=== PATIENT | male | born 1955 | race Caucasian/White ===

== ENCOUNTER 2017-08-29 13:11 | Emergency (ER) | payer MEDICARE, BC, MEDICAID ==
--- OUTSIDE RECORDS SUMMARY | 2017-08-29 14:22 | XMS REPORT ---
:1955 External Reference #:[id number] Author Organization [facility] Address [address] [place] [address] Phone [phone] Care Team Providers Name Role Phone Steven Riggs M.D. Primary Care Physician Unavailable Payers Type Date Identification Numbers Payment Provider Subscriber Medicare Primary Policy Number: [id number] Medicare - [place] Octavio Sutton PayID: [id number] [place] [address] Medigap Part B Policy Number: [id number] [place] [employer] Octavio Sutton PayID: [id number] [address] [address] [place] [address] Medicaid Policy Number: [id number] Medicaid Octavio Sutton PayID: [id number] [address] [place] [address] Problems Date Description Provider Status Onset: Cerebral palsy Active Onset: Seasonal allergy Active Onset: 08/14/2016 Tear film insufficiency Eliana Ojeda O.D. Active Onset: 08/14/2016 Nuclear senile cataract Eliana Ojeda O.D. 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 Active Family History Date Family Member(s) Problem(s) Comments Father No Current Problems Mother No Current Problems Social History Type Date Description Comments Marital Status Single Occupation [employer] Work Status Disabled ETOH Use Never used alcohol Smoking Patient has never smoked Recreational Drug Use Never Used Drugs Daily Caffeine Does Not Consume Caffeine Allergies, Adverse Reactions, Alerts Date Description Reaction Status Severity Comments 08/08/2015 Sulfa Drops active 08/08/2015 Erythromycin active 08/08/2015 Codeine active 08/08/2015 Zofran active 08/08/2015 Compazine active 08/08/2015 Phenergan active Medications Medication Date Status Form Strength Qnty SIG Indications Ordering Provider Systane Nighttime 06/16 Active Ointment 3.500 every gm night Eileen Gamino Tab-A-Jocelyn 08/10 Active Tablets every day Eileen Gamino Systane Ultra 08/09 Active Solution 0.4-0.3% 10ml 4 drops 4 times a CReynaldo Pottertz, day O.DReynaldo Vigamox 08/09 Active Solution 0.5% 3ml every day . Eileen Cloud Refresh P.M. 08/09 Active Ointment 3.500 every gm night at [place]o Ojeda, bedtime O.DReynaldo both eyes Omeprazole Active Capsules DR 20mg Take 1 Unknown /0000 Capsule Twice A Day Metoprolol Active Tablets 25mg Take 1/2 Unknown Tartrate /0000 Tablet By Mouth Twice A Day Levofloxacin Active Tablets 500mg Take 1 Unknown /0000 Tablet By Mouth Every Day Claritin 00 Active Capsules 10mg every day Unknown /0000 Flomax 00 Active Capsules 0.4mg every day Unknown /0000 Florastor 00 Active Capsules 250mg every day Unknown /0000 Hydrochlorothiazi 0000 Active Tablets 25mg every day Unknown de /0000 Prevnar 13 00 Hx Suspension To Be Unknown /0000 Administer - ed By 08/18 Pharmacist For Immunizati on Results Description No Information Procedures Date CPT Code Description Status 08/14/2016 59047 Est Patient Comprehensive Exam Completed 08/10/2015 16215 Est Patient Comprehensive Exam Completed 07/16/2013 95213 Est Patient Comprehensive Exam Completed 07/17/2012 15497 Est Patient Intermediate Exam Completed 04/23/2012 72548 Est Patient Intermediate Exam Completed 06/03/2011 52361 Est Patient Intermediate Exam Completed 11/23/2010 69535 Est Patient Intermediate Exam Completed 05/01/2009 47087 Est Patient Intermediate Exam Completed 04/15/2008 33568 Est Patient Intermediate Exam Completed 11/30/2007 501 Systane PF Eye Drops 28 Count Completed 11/20/2007 31471 Est Patient Intermediate Exam Completed 01/16/2007 32435 Est Patient Intermediate Exam Completed 06/18/2005 47232 Est Patient Comprehensive Exam Completed 07/16/2004 79557 Est Patient Comprehensive Exam Completed Encounters Type Date Location Provider CPT E/M Dx Office Visit 07/18/2014 10:00a Pastor Dye MD, Lindsay Gamino, 22053 370.60 pc O.D. Office Visit 05/24/2010 9:30a Pastor Dye MD, Pastor Dye, 67301 371.00 pc M.D. Office Visit 11/21/2009 9:30a Pastor Dye MD, Fabrice Patel 59940 371.00 pc O.D. 375.15 Office Visit 12/08/2008 1:00p Pastor Dye MD, Eliana Ojeda O.D. 17883 375.15 pc Office Visit 10/14/2008 9:15a Pastor Dye MD, Pastor Dye M.D. 87641 371.00 pc Office Visit 01/06/2008 9:15a Pastor Dye MD, Pastor Dye M.D. 03821 371.00 pc Office Visit 11/30/2007 1:30p Pastor Dye MD, Pastor Dye M.D. 99627 371.00 pc Office Visit 11/27/2007 2:10p Pastor Dye MD, Lindsay Gamino, 57354 370.00 pc O.D. Plan of Care 08/19/2017 - Nathan Colon M.D.H11.053 Peripheral pterygium, progressive, bilateralComments:Smoking can increase the risk of developing or worsening any eye related disease, as well as affect your overall health. If you are a smoker , we strongly recommend that you quit.If you are not a smoker, we strongly recommend that you do not start.Follow up:1YEAR, DFE You can expect to have your eyes dilated at your next visit. If Dr. Colon orders any additional testing, it may require extra time. We recommend that you bring sunglasses, as dilation drops often make you light sensitive until they wear off. We always recommend you bring someone to drive you home if you are uncomfortable driving with your eyes dilated. If you have any questions before your next visit, feel free to call our office at .H25.13 Age-related nuclear cataract, bilateralComments:You have been diagnosed with cataracts. If you are happy with your vision as it is now, then we willsee you at your next scheduled appointment. If you feel like your vision is getting worse before your scheduled appointment, please call Anahy or Kate at [phone].
--- OUTSIDE RECORDS SUMMARY | 2017-08-29 14:22 | XMS REPORT ---
:1955 External Reference #:[id number] Author Organization [facility] Address [address] [place] [address] Phone [phone] Care Team Providers Name Role Phone Nav Buchanan M.D. Primary Care Physician Unavailable Payers Type Date Identification Numbers Payment Provider Subscriber Medicare Primary Policy Number: Medicare-[facility] Octavio Sutton [id number] [employer] PayID: [id number] [address] [facility] [place] [address] Medigap Part B Policy Number: [id number] [facility] [place] Sutton [place] Group Number: [id number] [address] [address] PayID: [id number] [place] [address] Medigap Part B Policy Number: [id number] Medicaid/C Octavio Sutton Group Name: 2 1 Medicare Primary PayID: [id number] [place] [address] Problems Date Description Provider Status Onset: 08/15/2011 Impacted cerumen Parrish Gandhi MD Active Onset: 08/15/2011 Sensorineural hearing loss Parrish Gandhi MD Active Family History Date Family Member(s) Problem(s) Comments Father Colon Cancer Social History Type Date Description Comments Occupation Retired Cigarette Use Never Smoked Cigarettes Cigars has never smoked cigars Pipe has never smoked a pipe Smokeless Tobacco has never used smokeless tobacco ETOH Use does not drink alcohol Allergies, Adverse Reactions, Alerts Date Description Reaction Status Severity Comments 11/08/2005 Erythromycin active 11/08/2005 Bactrim active 11/08/2005 Sulfa active 11/08/2005 Codeine active 11/08/2005 Zofran active 11/08/2005 Compazine active 11/08/2005 Phenergen active Medications Medication Date Status Form Strength Qnty SIG Indications Ordering Provider Multivitamin/Iron 00 Active 1 po qd [place] Steven M.Анна Vigamox Active as Unknown directed Refresh Active as [place] Steven directed M.Анна Florastor Active Capsules 250mg Use as [place] Steven directed M.Анна Chlorhexadine Active 12% use daily [place] Gluconate Oral M.Анна Rinse Prevident 5000 Active Use as [place] Steven Booster Plus directed M.Анна Tamsulosin HCL Active Capsules 0.4mg 1 by [place] Selz mouth M.DReynaldo every day Ferrous Sulfate Active Tablets 325mg 1 tab [facility] daily M.DReynaldo, Nav Metoprolol Tartrate Active Solution 5mg/5ML Cib [facility] M.DReynaldo, Nav Alprazolam Active Tablets 0.25mg as needed [facility] for M.DReynaldo, anxiety Nav Omeprazole Active Capsules 40mg one by [facility] DR vargas one Elena, per day Nav ? Abx 07/14 Hx Parrish /2007 Josselyn Olivas MD 07/05 Phenobarbital 11/07 Hx Unknown /2005 - 12/01 Bion Eye Drops 11/07 Hx - 07/05 Valium / Hx - 07/05 Flomax / Hx - 07/05 Nitrofurantoin / Hx Unknown / - 02/13 [facility] Hx Unknown gtts / - 02/13 Flomax 00 Hx 0.4mg 1 po [place] Steven daily M.DReynaldo - 10/12 Cystine / Hx Unknown - 10/12 Diazepam 00/00 Hx Unknown / - 02/13 Peridex 00/00 Hx Unknown - 02/13 Act 00/ Hx Unknown - 02/13 Hydrochlorothiazide Hx Tablets 25mg 1 po qd [place] Ryan.Анна - 02/25 Claritin 00/00 Hx Unknown /0000 - 11/04 Systane Contacts 00/00 Hx Solution as Stevne Riggs Soroxanne Drops /0000 directed Elena - 02/25 Immunizations CPT Code Status Date Vaccine Lot # [id number] Given Unknown Influenza Virus Vaccine, 3 Years Of Age And Above, Intramuscular Vital Signs Date Vital Result Comment 02/25/2017 BP Systolic 134 mmHg BP Diastolic 83 mmHg Heart Rate 88 /min Respiratory Rate 17 /min Weight 98.00 lb Weight in kg's 44.453 Height 68 inches 5'8" Height in cm's 172.7 cm BMI (Body Mass Index) 14.9 kg/m2 04/13/2015 BP Systolic 126 mmHg BP Diastolic 85 mmHg Heart Rate 110 /min Respiratory Rate 17 /min Weight 98.00 lb Weight in kg's 44.453 Height 68 inches 5'8" Height in cm's 172.7 cm BMI (Body Mass Index) 14.9 kg/m2 04/07/2014 BP Systolic 144 mmHg BP Diastolic 101 mmHg Heart Rate 125 /min Respiratory Rate 16 /min Weight 98.00 lb Weight in kg's 44.453 Height 68 inches 5'8" Height in cm's 172.7 cm BMI (Body Mass Index) 14.9 kg/m2 11/04/2013 Weight 98.00 lb Weight in kg's 44.453 Height 68 inches 5'8" Height in cm's 172.7 cm BMI (Body Mass Index) 14.9 kg/m2 04/07/2013 Weight 98.00 lb Weight in kg's 44.453 Height 68 inches 5'8" Height in cm's 172.7 cm BMI (Body Mass Index) 14.9 kg/m2 10/07/2012 BP Systolic 158 mmHg BP Diastolic 77 mmHg Heart Rate 103 /min Respiratory Rate 16 /min 04/01/2012 BP Systolic 124 mmHg BP Diastolic 74 mmHg Heart Rate 102 /min Respiratory Rate 16 /min Weight 98.00 lb Stated by caregiver Weight in kg's 44.453 Stated by caregiver 07/14/2008 BP Systolic 111 mmHg BP Diastolic 77 mmHg Heart Rate 124 /min Respiratory Rate 18 /min 12/04/2007 BP Systolic 142 mmHg BP Diastolic 95 mmHg Heart Rate 106 /min Respiratory Rate 17 /min 05/20/2007 BP Systolic 154 mmHg BP Diastolic 98 mmHg Heart Rate 100 /min Respiratory Rate 20 /min 11/08/2005 BP Systolic 150 mmHg BP Diastolic 99 mmHg Heart Rate 97 /min Respiratory Rate 16 /min Results Description No Information Procedures Date CPT Code Description Status 08/21/2017 79254 Removal Wax Impaction Completed 02/25/2017 32283 Removal Wax Impaction Completed 08/29/2016 83198 Tympanometry Completed 08/29/2016 00435 Speech Audiometry Threshold Completed 08/29/2016 77738 Pure Tone - Air Conduction Only Completed 05/15/2016 49402 Removal Wax Impaction Completed 04/13/2015 65411 Removal Wax Impaction Completed 10/13/2014 68320 Removal Wax Impaction Completed 04/07/2014 71852 Speech Audiometry Threshold Completed 04/07/2014 92940 Pure Tone - Air Conduction Only Completed 11/04/2013 49035 Removal Wax Impaction Completed 04/07/2013 88820 Removal Wax Impaction Completed 10/07/2012 97627 Removal Wax Impaction Completed 04/01/2012 93421 Tympanometry Completed 04/01/2012 02465 Comprehensive Audiogram Completed 08/14/2011 79718 Removal Wax Impaction Completed 02/13/2011 31688 Removal Wax Impaction Completed 08/01/2010 84217 Removal Wax Impaction Completed 01/25/2010 44706 Tympanometry Completed 01/25/2010 14829 Speech Audiometry Threshold Completed 01/25/2010 64543 Pure Tone - Air Conduction Only Completed 01/03/2010 05643 No Show Fee Completed 07/05/2009 79658 Removal Wax Impaction Completed 03/01/2009 00260 Interest Income Completed 01/19/2009 69420 Removal Wax Impaction Completed 07/14/2008 28271 Removal Wax Impaction Completed 12/04/2007 62323 Removal Wax Impaction Completed 05/20/2007 72675 Removal Wax Impaction Completed 10/01/2006 38603 Removal Wax Impaction Completed 05/09/2006 41577 Tympanometry Completed 05/09/2006 28014 Comprehensive Audiogram Completed 04/02/2006 25466 Tympanometry Completed 04/02/2006 68575 Pure Tone - Air Conduction Only Completed Encounters Type Date Location Provider CPT E/M Dx Office Visit 08/29/2016 10:30a [place] 09/01/07 Parrish Gandhi, [address] H61.23 H90.3 Office Visit 04/07/2014 10:00a [place],After 09/01/07 [place] [address] 380.4 389.10 Office Visit 04/01/2012 10:30a [place],After 09/01/07 [place] [address] 380.4 389.10 Office Visit 01/25/2010 2:30p [place],After 09/01/07 [place] [address] 380.4 389.10 Office Visit 01/19/2009 11:30a [place],After 09/01/07 [place] [address] 380.4 462-2 Office Visit 03/28/2006 10:15a [place],After 09/01/07 [place] [address] 380.4 Office Visit 12/25/2005 10:15a [place],After 09/01/07 [place] [address] 380.4 Office Visit 11/08/2005 3:30p [place],After 09/01/07 [place] [address] 380.4 Plan of Care No Information Available
--- OUTSIDE RECORDS SUMMARY | 2017-08-29 14:22 | XMS REPORT ---
:1955 External Reference #:[id number] Author Organization [facility] Address [address] [place] [id number] Phone [phone] Care Team Providers Name Role Phone Nav Buchanan MD Care Team Information Company Driver Unavailable Payers Type Date Identification Numbers Payment Provider Subscriber Medicare Primary Effective: Policy Number: Medicare - Bswbogdan Arreguin 1985 [id number] PayID: [id number] [address] [place] [address] Medigap Part B Effective: Policy Number: Leta ROZINA Charlotte Arreguin 2014 [id number] Expires: 2017 Group Name[place] [address] PayID: [id number] TRA Forman [id number] Medigap Part B Effective: Policy Number: Medicaid/Computer Octavio 2009 [id number] Antony Arreguin Expires: 2017 Group Name: 1 1 [address] PayID: [id number] [place] [address] Medigap Part B Effective: Policy Number: Leta SHELLEYELIZA Cunningham 2017 [id number] Herman Group Name: [place] [address] PayID: [id number] TRA [place] [id number] Problems Date Description Provider Status Onset: Urinary catheter in situ Active Onset: Atrial fibrillation Active Onset: Ventricular tachycardia Active Onset: Platelet count below reference range Active Onset: Syncope Active Onset: Sepsis Active Onset: Disuse syndrome Active Onset: Pericardial effusion Active Onset: Loss of consciousness Active Onset: Left lower zone pneumonia Active Onset: Intestinal obstruction Active Onset: Blood in urine Active Onset: Hypertensive disorder Active Onset: For resuscitation Active Onset: Endocarditis Active Onset: High troponin I level Active Onset: Bacteremia caused by Gram-negative bacteria Active Onset: H/O: anticoagulant therapy Active Onset: Cerebral palsy Active Onset: Benign prostatic hyperplasia Active Onset: Anemia Active Onset: Injury of kidney Active Family History Date Family Member(s) Problem(s) Comments General Cancer, Colon Father Cancer, Colon Social History Type Date Description Comments Marital Status Single Lives With Caregiver [facility] patient. His mid 90's mother retains guardianship, Rocky is looking into trying to change this. Diet Healthy, Well Balanced Occupation Disabled Cigarette Use Never Smoked Cigarettes ETOH Use Denies alcohol use Recreational Drug Use Denies Drug Use Exercise Type/Frequency Does not exercise Allergies, Adverse Reactions, Alerts Date Description Reaction Status Severity Comments 02/15/2016 Erythromycin active 02/15/2016 Codeine active 02/15/2016 Sulfa Antibiotics active 02/15/2016 Compazine active 02/15/2016 Phenergan active 02/15/2016 Zofran active Medications Medication Date Status Form Strength Qnty SIG Indications Ordering Provider New Shoes 05/28 Active as needed G80.8 DXdoretha martinez MD Cefuroxime Axetil 05/27 Active Tablets 500mg 20tab one by J20.9 s mouth twice P. a day x 10 Blegen, days for M.D. Bronchitis/ Pneumonia Robitussin 05/27 Active Liquid 100mg/5ML 118ml 5mL twice a J20.9 Nav Mucus+Chest /2016 day for [place] Congestion cough x 5 , MD days Shoe Repair 05/26 Active as needed G80.8 dx code Dewayne white MD Centrum Tab 130Ea 05/26 Active 30uni Take 1 ts Tablet By Dewayne Mouth Once , Daily (Supplement ) Klonopin 02/12 Active Tablets 0.5mg 30tab Take One F41.9 s Tablet By Heetdivya Mouth At , MD Bedtime MDD 1 MDD 1 MDD 1 Florastor 250MG 01/07 Active Caps 120ca Take 2 ps Capsules By [place] Mouth Two , MD Times A Day (Prophy) Benadryl Allergy 11/11 Active Capsules 25mg 30cap 1 capsule F51.02 s take by [place] mouth q6 as , MD needed. Hold scheduled evening dose if given within 6 hours. Refresh 09/13 Active MD Dewayne Hospital Bed 08/30 Active adjustable G80.9 bed for Dewayne sleep. MD severe physical disabilitie s. Zeasorb-AF 07/15 Active Powder 2% 71uni Apply To ts Interspace Dewayne (Toes) MD Every Day (Tinea Pedis) Sudafed 07/05 Active Tablets 30mg 90tab 1 tab by s mouth three Dewayne times a day , MD as needed Bacitracin Zinc 07/05 Active Ointment 500Unit/G 14.17 apply to M 0gm rash on [place] face twice , MD a day as needed Resource 2.0 05/28 Active Liquid QS 8 oz twice R63.4 a day MD Dewayne Hydrocortisone 04/21 Active Cream 1% 28.35 twice daily 0gm MD Dewayne Ferrous Sulfate 12/20 Active Tablets 325(65Fe) 30tab every day mg s MD Dewayne Multivitamin & Active Tablet 30tab take 1 Nav Mineral s tablet by Heetderemmanuel mouth once , MD daily. Florastor Active Capsules 250mg 120ca take two Nav ps capsules by Heetderemmanuel mouth twice , MD a day [place] Active Liquid 60uni 2 times a Nav Breakfast /0000 day Dewayne Hill MD Acetaminophen Active Tablets 325mg 120ta 2 tabs by Nav / bs mouth every [place] 6 hours as , MD needed for pain or fever. Pepto-Bismol Active Chewtabs 262mg 30uni take two Nav /0000 ts tab by Heetdivya mouth every , 4 as needed Claritin Active Tablets 10mg 30tab 1 by mouth Nav /0000 s every day [place] as needed , MD Fielditussin DM Active Syrup 100-10mg/ 118ml 10 Nav /0000 5ML milliliters [place] by mouth , MD every 6 hours as needed Lotrimin AF Active Cream 1% 12gm apply to Nav /0000 digits once [place] daily twice , MD a week for 3 months Vigamox Active Solution 0.5% 3ml instill 1 Nav /0000 drop into [place] both eyes , every day Systane Ultra Active Solution 0.4-0.3% 20uni instill 1 Nav /0000 ts drop both [place] eyes four , MD times a day(1 bottle for program) (moisture) Metoprolol Active Tablets 25mg 30tab take 1/2 Nav Tartrate /0000 s tablet by [place] mouth 2 , times a day. Tamsulosin HCL Active Capsules 0.4mg 30cap 1 by mouth Nav /0000 s every day MD Dewayne Omeprazole Active Capsules 40mg 30cap take one Nav /0000 DR s capsule by [place] mouth every , MD day. Amoxicillin Active Capsules 500mg 14cap 4 pills one Nav /0000 s hr. prior [place] to dental MD appt. Discontinue Xanax 02/17 Hx Nav Dewayne - MD 05/27 Klonopin 02/12 Hx Tablets 0.5mg 30tab Take One Nav s Tablet By Dewayne - Mouth At MD 05/27 Bedtime MDD 1 Xanax 01/08 Hx Tablets 0.25mg 30tab 1 tab by F41.9 Nav s mouth daily Dewayne - as needed MD 02/12 for sleep MDD 1 Benadryl Allergy 11/11 Hx Capsules 25mg 30cap 1 tab by F51.02 s mouth every [place] - night. MD [place] 05/27 taking the morning dose of benadryl. Benadryl 09/13 Hx Capsules 25mg 30cap 1 tab by F51.02 s mouth every [place] - night. MD [place] 11/11 taking morning dose of benadryl. Benadryl 09/13 Hx Capsules 25mg 30cap 1 capsule F51.02 s take by [place] - mouth q6 as , 11/11 needed. Hold scheduled evening dose if given within 6 hours. Discontinue Boost 05/28 Hx Dewayne Arcos MD 06/24 Nystatin 05/13 Hx Cream [id number] 60gm apply twice t/GM a day to [place] - rash in , 06/24 creases for 2 weeks Augmentin 05/05 Hx Tablets 500-125mg 42tab Twice Daily s - 06/24 Benadryl Allergy 04/21 Hx Tablets 25mg 30tab see s instruction [place] - s as needed , 05/27 for itching Benadryl Allergy 04/21 Hx Tablets 25mg 0900 - 06/24 Vicodin 04/21 Hx Tablets 5-300mg Discontinue medication Dewayne Arcos MD 09/13 [place] PM 04/03 Hx Ointment 85-15% 3.5un apply (09/02 its in) both [place] - eyes every MD 09/13 (moisture) Prilosec Hx Capsules 20mg 30cap every day DR cydney Arcos MD 09/13 Benadryl Hx Capsules 25mg Take one Unknown /0000 capsule by - mouth every 06/24 morning. Hydrochlorothiazid Hx Tablets 25mg Take one Unknown e /0000 tablet by - mouth every 05/13 day. Boost 00 Hx Unknown /0000 - 05/28 Benadryl Hx Capsules 25mg Take one Unknown /0000 capsule by - mouth as 06/24 needed the afternoon. Zeasorb Hx Powder 71gm apply to Nav /0000 interspace [place] - toes MD kevin Bacitracin Hx Solution 5000U/ GM 1unit apply to Nav /0000 Rec s small cuts, [place] - wounds MD patrica 07/05 Immunizations CPT Code Status Date Vaccine Lot # [id number] Given 06/26/2017 Zoster Vaccine [id number] Given 06/01/2017 Influenza Virus Vaccine, Quadrivalent, 3 Yr > Quad, Preserv Free [id number] Given 06/27/2016 Influenza Virus Vaccine, Quadrivalent, 3 Yr > Quad, Preserv Free [id number] Given 11/20/2009 Tdap (Adacel) Vital Signs Date Vital Result Comment 08/26/2017 BP Systolic 120 mmHg BP Diastolic 60 mmHg Heart Rate 64 /min Body Temperature 99.1 F Respiratory Rate 16 /min O2 % BldC Oximetry 95 % 06/26/2017 BP Systolic 90 mmHg BP Diastolic 64 mmHg Heart Rate 64 /min Body Temperature 95.8 F Respiratory Rate 20 /min O2 % BldC Oximetry 99 % 05/27/2017 BP Systolic 110 mmHg BP Diastolic 80 mmHg Heart Rate 100 /min Body Temperature 99.6 F Respiratory Rate 20 /min O2 % BldC Oximetry 94 % 01/23/2017 BP Systolic 100 mmHg BP Diastolic 66 mmHg Heart Rate 96 /min Body Temperature 97.8 F Respiratory Rate 16 /min O2 % BldC Oximetry 96 % 01/08/2017 BP Systolic 120 mmHg BP Diastolic 78 mmHg Heart Rate 72 /min Body Temperature 97.0 F Respiratory Rate 24 /min 12/20/2016 BP Systolic 90 mmHg BP Diastolic 60 mmHg Heart Rate 88 /min Body Temperature 97.6 F Respiratory Rate 20 /min O2 % BldC Oximetry 96 % 09/30/2016 BP Systolic 112 mmHg BP Diastolic 84 mmHg Heart Rate 108 /min Body Temperature 99.2 F O2 % BldC Oximetry 95 % 09/13/2016 Weight 91.00 lb Per aide Weight in kg's 41.278 BP Systolic 88 mmHg BP Diastolic 66 mmHg Heart Rate 69 /min Body Temperature 97.3 F Respiratory Rate 12 /min O2 % BldC Oximetry 96 % 06/24/2016 BP Systolic 96 mmHg BP Diastolic 60 mmHg Heart Rate 97 /min Body Temperature 96.4 F Respiratory Rate 18 /min O2 % BldC Oximetry 97 % 05/13/2016 BP Systolic 105 mmHg BP Diastolic 70 mmHg Heart Rate 80 /min Body Temperature 98.1 F O2 % BldC Oximetry 94 % 05/05/2016 BP Systolic 120 mmHg BP Diastolic 68 mmHg Heart Rate 102 /min Body Temperature 97.9 F Respiratory Rate 16 /min O2 % BldC Oximetry 99 % 04/26/2016 Weight 93.00 lb Weight in kg's 42.184 Height 68 inches BMI (Body Mass Index) 14.1 kg/m2 03/21/2016 BP Systolic 110 mmHg BP Diastolic 60 mmHg Heart Rate 91 /min Body Temperature 97.6 F Respiratory Rate 13 /min O2 % BldC Oximetry 98 % 02/12/2016 Weight 90.00 lb Weight in kg's 40.824 BP Systolic 122 mmHg BP Diastolic 87 mmHg Heart Rate 88 /min Body Temperature 95.9 F O2 % BldC Oximetry 98 % Results Test Date Test Result H/L Range Note Lipid Profile (Trig/Chol/HDL) 06/26/2017 Triglycerides 92 mg/dL 1 Cholesterol 110 mg/dL 2 HDL Cholesterol 42.1 mg/dL 3 LDL Cholesterol 50 mg/dL 4 HIV 1/2 AB Evaluation 06/26/2017 HIV 1 2 Antibody Nonreactive Nonreactive 5 Laboratory test finding 06/26/2017 Hepatitis C Antibody Nonreactive Nonreactive 6 CBC Auto Diff 06/26/2017 White Blood Count 5.4 10^3/uL 3.5-10.8 Red Blood Count 4.12 10^6/uL 4.0-5.4 Hemoglobin 12.9 g/dL Low 14.0-18.0 Hematocrit 39 % Low 42-52 Mean Corpuscular Volume 95 fL High 80-94 Mean Corpuscular Hemoglobin 31 pg 27-31 Mean Corpuscular HGB Conc 33 g/dL 31-36 Red Cell Distribution Width 15 % 10.5-15 Platelet Count 100 10^3/uL Low 150-450 Mean Platelet Volume 13 um3 High 7.4-10.4 Abs Neutrophils 3.9 10^3/uL 1.5-7.7 Abs Lymphocytes 0.7 10^3/uL Low 1.0-4.8 Abs Monocytes 0.7 10^3/uL 0-0.8 Abs Eosinophils 0 10^3/uL 0-0.6 Abs Basophils 0 10^3/uL 0-0.2 Abs Nucleated RBC 0 10^3/uL Granulocyte % 72.3 % 38-83 Lymphocyte % 12.4 % Low 25-47 Monocyte % 13.7 % High 1-9 Eosinophil % 0.9 % 0-6 Basophil % 0.7 % 0-2 Nucleated Red Blood Cells % 0 Basic Metabolic Panel 06/26/2017 Sodium 134 mmol/L 133-145 Potassium 4.5 mmol/L 3.5-5.0 Chloride 100 mmol/L Low 101-111 Co2 Carbon Dioxide 28 mmol/L 22-32 Anion Gap 6 mmol/L 2-11 Glucose 99 mg/dL 70-100 Blood Urea Nitrogen 28 mg/dL High 6-24 Creatinine 1.13 mg/dL 0.67-1.17 BUN/Creatinine Ratio 24.8 High 8-20 Calcium 9.2 mg/dL 8.6-10.3 Egfr Non- 66.2 >60 Egfr 85.1 >60 7 Cell Morphology 06/26/2017 Platelet Morphology Large RBC Morphology Normal Normal Flu Test A, B, Or A & B,Binaxn 05/27/2017 Influenza A Antigen NEG Influenza B Antigen NEG Laboratory test finding 05/14/2017 Blood Urea Nitrogen BUN 23 mg/dL 6-24 Creatinine 05/14/2017 Creatinine 1.25 mg/dL High 0.67-1.17 Egfr Non- 58.9 >60 Egfr 75.8 >60 8 Laboratory Studies 05/03/2016 Anion Gap 2 mmol/L 2-11 BUN/Creatinine Ratio 16.7 8-20 Blood Urea Nitrogen 18 mg/dL 6-24 Calcium Level 8.3 mg/dL Low 8.6-10.3 Carbon Dioxide Level 27 mmol/L 22-32 Chloride Level 106 mmol/L 101-111 Creatinine 1.08 mg/dL 0.67-1.17 Estimated GFR () 90.0 Estimated GFR (Non- 70.0 Glucose Level 86 mg/dL 70-100 Potassium Level 4.8 mmol/L 3.5-5.0 Sodium Level 135 mmol/L 133-145 Inr/Protime 04/21/2016 Inr 1.46 High 0.89-1.11 Laboratory test 04/21/2016 Partial Thrombo Time 28.1 seconds 26.0-36.3 finding PTT Manual Differential 04/21/2016 Immature Granulocytes 22 % High 0-9 Neutrophil % 69 % 38-83 Band % 20 % High 0-8 Monocytes % 9 % 0-13 Metamyelocytes % 2 % 0-2 Hypochromasia 1+ Ruma Cells 2+ Acanthocytes 1+ CBC Auto Diff 04/21/2016 White Blood Count 11.4 10^3/uL High 3.5-10.8 Red Blood Count 4.18 10^6/uL 4.0-5.4 Hemoglobin 12.4 g/dL Low 14.0-18.0 Hematocrit 38 % Low 42-52 Mean Corpuscular Volume 91 fL 80-94 Mean Corpuscular Hemoglobin 30 pg 27-31 Mean Corpuscular HGB Conc 33 g/dL 31-36 Red Cell Distribution Width 16 % High 10.5-15 Platelet Count 112 10^3/uL Low 150-450 Mean Platelet Volume 13 um3 High 7.4-10.4 Abs Neutrophils 9.7 10^3/uL High 1.5-7.7 Abs Lymphocytes 0.4 10^3/uL Low 1.0-4.8 Abs Monocytes 1.2 10^3/uL High 0-0.8 Abs Eosinophils 0 10^3/uL 0-0.6 Abs Basophils 0.1 10^3/uL 0-0.2 Abs Nucleated RBC 0 10^3/uL Granulocyte % 85.6 % High 38-83 Lymphocyte % 3.3 % Low 25-47 Monocyte % 10.7 % High 1-9 Eosinophil % 0 % 0-6 Basophil % 0.4 % 0-2 Nucleated Red Blood Cells % 0 Laboratory test finding 04/21/2016 Lactic Acid 2.9 mmol/L High 0.5-2.0 9 Comp Metabolic Panel 04/21/2016 Sodium 132 mmol/L Low 133-145 Potassium 4.9 mmol/L 3.5-5.0 Chloride 100 mmol/L Low 101-111 Co2 Carbon Dioxide 22 mmol/L 22-32 Anion Gap 10 mmol/L 2-11 Glucose 92 mg/dL 70-100 Blood Urea Nitrogen 52 mg/dL High 6-24 Creatinine 2.64 mg/dL High 0.67-1.17 BUN/Creatinine Ratio 19.7 8-20 Calcium 9.6 mg/dL 8.6-10.3 Total Protein 7.6 g/dL 6.4-8.9 Albumin 3.6 g/dL 3.2-5.2 Globulin 4.0 g/dL 2-4 Albumin/Globulin Ratio 0.9 Low 1-3 Total Bilirubin 0.80 mg/dL 0.2-1.0 Alkaline Phosphatase 84 U/L 34-104 Alt 17 U/L 7-52 Ast 44 U/L High 13-39 Egfr Non- 24.9 >60 Egfr 32.1 >60 10 Laboratory test 04/21/2016 Troponin-I (TnI) 0.03 ng/mL High <0.03 11 finding Laboratory test 04/21/2016 Blood Culture SEE RESULT BELOW 12 finding Urine Culture SEE RESULT BELOW 13 Urinalysis Profile 04/21/2016 Urine Color Flor Urine Appearance Cloudy Urine Specific [place] 1.012 1.010-1.030 Urine pH 5.0 5-9 Urine Urobilinogen Negative Negative Urine Ketones Negative Negative Urine Protein 1+(30 mg/dL) Negative Urine Leukocytes 3+ Negative Urine Blood 3+ Negative Urine Nitrite Negative Negative Urine Bilirubin Negative Negative Urine Glucose Negative Negative Urine White Blood Cell 3+(>20/hpf) Absent Urine Red Blood Cell 3+(>10/hpf) Absent Urine Bacteria 2+ Absent Urine Squamous Epithelial Cell Present Absent Laboratory test finding 03/05/2016 C Difficile PCR SEE RESULT BELOW 14 1 Desirable: <150 Borderline High: 150-199 High: 200-499 Very High: >500 2 Desirable: <200 Borderline High: 200-239 High: >239 3 Low: <40 Desirable: 40-60 High: >60 4 Desirable: <100 Near Optimal: 100-129 Borderline High: 130-159 High: 160-189 Very High: >189 5 It is recognized that currently available assays for the detection of antibodies to HIV-1 and/or HIV-2 may not detect all infected individuals. HIV antibodies may be undetectable in some stages of the infection and in some clinical conditions. The performance of this assay has not been established for populations of infants or children. Assayed by Chemiluminescence Microparticle Immunoassay on the Siemens Advia Centaur CP. Values obtained with different methods or kits cannot be used interchangeably.The diagnostic specificity of the ADVIA Centaur 1/O/2 Enhanced assay in the low risk population was 99.90% (6052/6058) with a 95% confidence interval of 99.78 to 99.96%. 6 [id number] FASTING 7 Because ethnic data is not always readily available, this report includes an eGFR for both -Americans and non- Americans. The National Kidney Disease Education Program (NKDEP) does not endorse the use of the MDRD equation for patients that are not between the ages of 18 and 70, are , have extremes of body size, muscle mass, or nutritional status, or are non- or non-. According to the National Kidney Foundation, irrespective of diagnosis, the stage of the disease is based on the level of kidney function: Stage Description GFR(mL/min/1.73 m(2)) 1 Kidney damage with normal or decreased GFR 90 2 Kidney damage with mild decrease in GFR 60-89 3 Moderate decrease in GFR 30-59 4 Severe decrease in GFR 15-29 5 Kidney failure <15 (or dialysis) 8 Because ethnic data is not always readily available, this report includes an eGFR for both -Americans and non- Americans. The National Kidney Disease Education Program (NKDEP) does not endorse the use of the MDRD equation for patients that are not between the ages of 18 and 70, are , have extremes of body size, muscle mass, or nutritional status, or are non- or non-. According to the National Kidney Foundation, irrespective of diagnosis, the stage of the disease is based on the level of kidney function: Stage Description GFR(mL/min/1.73 m(2)) 1 Kidney damage with normal or decreased GFR 90 2 Kidney damage with mild decrease in GFR 60-89 3 Moderate decrease in GFR 30-59 4 Severe decrease in GFR 15-29 5 Kidney failure <15 (or dialysis) 9 Critical Result LACT:2.9 Called to AURELIA at: 14:29:19 by:[id number] Read back by:AURELIA SAHU Severe Sepsis and Septic Shock Management Bundle Measure requires all lactic acids initially measuring >2.0 mmol/L be repeated. 10 Because ethnic data is not always readily available, this report includes an eGFR for both -Americans and non- Americans. The National Kidney Disease Education Program (NKDEP) does not endorse the use of the MDRD equation for patients that are not between the ages of 18 and 70, are , have extremes of body size, muscle mass, or nutritional status, or are non- or non-. According to the National Kidney Foundation, irrespective of diagnosis, the stage of the disease is based on the level of kidney function: Stage Description GFR(mL/min/1.73 m(2)) 1 Kidney damage with normal or decreased GFR 90 2 Kidney damage with mild decrease in GFR 60-89 3 Moderate decrease in GFR 30-59 4 Severe decrease in GFR 15-29 5 Kidney failure <15 (or dialysis) 11 Reference Range and Interpretation: TnI (ng/mL) Interpretation Less Than 0.03 ng/mL Not supportive of diagnosis of AR 0.03 - 0.50 ng/mL Indeterminate: suggest serial studies if clinically indicated. Greater than 0.5 ng/mL Consistent with diagnosis of AR 12 SEE RESULT BELOW Name: OCTAVIO ARREGUIN : [address]: Angel Kay MD Acct: [id number] Unit: [id number] AGE: 61 Location: [address] Re04/21/16 SEX: M Status: ADM IN SPEC: [id number] BETTY: 04/21/16-143[facility] DR: Georges Pereira DO REQ: [id number] RECD: 04/21/16 STATUS: LUIS MIGUEL LAGOS DR: Nav Buchanan MD _ SOURCE: BLOOD,VENO SPDESC: ORDERED: Blood Cult COMMENTS: Verbal to by [id number] at 1505 on 04/22/16. Results read back accurately. Procedure Result Reported Site Aerobic Culture Bottle Final 04/23/16- 0837 ML Aerobic Bottle Gram Stain Gram Negative Bacilli Organism 1 KLEBSIELLA PNEUMONIAE Please refer to [id number] culture ANAEROBIC bottle for sensitivity testing. Anaerobic Culture Bottle Final 04/26/16- 1448 ML No Growth Day 5 * ML - MAIN LAB ([facility]) . END OF REPORT * ML=Testing performed at Main Lab DEPARTMENT OF PATHOLOGY, [address] [place] [address] Christian Olivares M.D. Director [facility] # [id number] 13 SEE RESULT BELOW Name: OCTAVIO ARREGUIN : [address]: Agustina Trujillo MD Acct: [id number] Unit: [id number] AGE: 61 Location: [place] [address] Re04/21/16 SEX: M Status: ADM IN SPEC: [id number] BETTY: 04/21/[address]: Georges Pereira DO REQ: [id number] RECD: 04/21/16 STATUS: LUIS MIGUEL LAGOS DR: Nav Buchanan MD _ SOURCE: URINE SPDESC: ORDERED: Urine Culture Procedure Result Reported Site Urine Culture Final 04/23/16- 08 ML Organism 1 KLEBSIELLA PNEUMONIAE Hugo Count >100,000 (Many) CFU/ML 1. KLEBSIELLA PNEUMONIAE M.I.C. RX --------- ------ Ampicillin >=32 R Cefazolin <=4 S Cefepime <=1 S Ceftriaxone <=1 S Ciprofloxacin <=0.25 S Gentamicin <=1 S Levofloxacin <=0.12 S Meropenem <=0.25 S Nitrofurantoin 128 R Tetracycline <=1 S Pipercillin/Tazobactam <=4 S Trimethoprim/Sulfamethoxazole <=20 S Amoxicillin/Clavulanic Acid <=2 S Aztreonam <=1 S Contact the Microbiology Department for any additional antibiotic reporting. * ML - MAIN LAB ([facility]) . END OF REPORT * ML=Testing performed at Main Lab DEPARTMENT OF PATHOLOGY, [address] [place] [address] Christian Olivares M.D. Director [facility] # [id number] 14 SEE RESULT BELOW Name: OCTAVIO ARREGUIN : [address]: Vinny Perry MD Acct: [id number] Unit: [id number] AGE: 61 Location: [facility] Re03/05/16 SEX: M Status: REG REF SPEC: [id number] BETTY: 03/05/16 [facility] DR: Vinny Perry MD REQ: [id number] RECD: 03/06/16 STATUS: LUIS MIGUEL LAGOS DR: Nav Buchanan MD _ SOURCE: STOOL SPDESC: ORDERED: C. diff PCR COMMENTS: attempted Verbal by [employer] at 1503 on 03/06/16. . Verbal to abdoulaye (nurse) by [employer] at 1510 on 03/06/16. Results read back accurately. Procedure Result Reported Site Stool Specimen Description Final 03/07/16- 1447 ML Stool Color Brown Stool Form Nonformed Stool Consistency Liquid C. difficile PCR Final 03/06/16- 1504 ML Organism 1 027 Presumptive NEGATIVE Organism 2 Toxigenic C.diff POSITIVE * ML - MAIN LAB ([facility]) . END OF REPORT * ML=Testing performed at Main Lab DEPARTMENT OF PATHOLOGY, [address] [place] [address] Christian Olivares M.D. Director [facility] # [id number] Procedures Description No Information Encounters Type Date Location Provider CPT E/M Dx Office Visit 06/26/2017 1:00p Main Office Nav Buchanan MD G0439 Z00.8 N40.1 R13.11 Z23 Office Visit 05/27/2017 4:00p Main Office Dorota Campuzano M.D. 31234 J20.9 G80.8 Office Visit 01/23/2017 11:15a [place] [address] B35.1 Office Visit 01/08/2017 9:30a [place] [address] F41.9 Office Visit 12/20/2016 10:45a [place] [address] R05 Office Visit 09/30/2016 4:45p [place] [address] R05 Office Visit 09/13/2016 10:15a [place] [address] G80.8 F51.02 Office Visit 06/24/2016 1:00p Main Office Nav Buchanan MD G0438 Z00.8 R63.6 Office Visit 05/13/2016 10:00a [place] [address] R65.20 N39.0 B37.2 Office Visit 03/21/2016 10:00a [place] [address] A04.7 Office Visit 02/12/2016 9:00a [place] [address] G80.9 F79 D48.7 A04.7 N31.8 I38 Plan of Care 08/26/2017 - Jese Tello III, TRANSPORT ENGINEER-CR05 CoughComments:Cough likely due to mild post-nasal drip. Remainder of exam is at baseline - no edema, no SOB. Weight discrepancy likely due to user error. Continue to monitor and f/u with concerns.
[2017-08-29] MEDS ORDERED: Albuterol/Ipratropium NEB.SOL* Albuterol 2.5 MG/Ipratropium 0.5 MG 3 ML INH ONE (14:57)
--- NOTE | 2017-08-29 16:11 | RAD ---
INDICATION: Shortness of breath. COMPARISON: Correlation is made with a prior study from December 20, 2016. TECHNIQUE: AP and lateral views of the chest were obtained. FINDINGS: The cardiac silhouette is markedly enlarged and unchanged. There is mild prominence of the interstitial markings which are unchanged. There is a small infiltrate at the right lung base. No pleural effusion is seen. IMPRESSION: 1. ENLARGED CARDIAC SILHOUETTE, UNCHANGED. 2. SMALL RIGHT BASILAR INFILTRATE.
[2017-08-29] MEDS ORDERED: Ciprofloxacin 400MG IVPREMIX(* 400 MG/200 ML BAG IVPB ONE (16:32)
[2017-08-29 16:36] LABS: Hematocrit 43 % (42-52); Hemoglobin 14.3 g/dl (14.0-18.0); Mean Corpuscular HGB Conc 33 g/dl (31-36); Mean Corpuscular Hemoglobin 32 pg (27-31); Mean Corpuscular Volume 95 fL (80-94); Mean Platelet Volume 12 um3 (7.4-10.4); Platelet Count 82 10^3/ul (150-450); Red Blood Count 4.49 10^6/ul (4.0-5.4); Red Cell Distribution Width 16 % (10.5-15); White Blood Count 10.9 10^3/ul (3.5-10.8)
[2017-08-29 16:51] LABS: EGFR Non-African American 60.6 (>60)
[2017-08-29] MEDS ORDERED: NS 0.9% 1000 ML* 1,000 ML IV ONE (16:58)
[2017-08-29] MEDS ORDERED: methylPREDNISolone 125 MG* 2 ML VIAL IV ONE (16:59)
[2017-08-29] MEDS ORDERED: Cefepime 2 GM in Dextrose(*) 2 GM/50 ML BAG IV ONE (17:00)
[2017-08-29] MEDS ORDERED: Acetaminophen TAB* 325 MG PO ONE (19:25)
[2017-08-29 19:37] VITALS: BP 146/71
--- NOTE | 2017-09-09 11:43 | ED ---
Larissa Koroma Gabriel, scribed for Marcial Vazquez MD on 08/29/17 at 1930 . Course/Dx - Diagnoses Provider Diagnoses: Pneumonia, Dehydration - Provider Notifications Discussed Care Of Patient With: Lynn Orona Time Discussed With Above Provider: 19:28 Instructed by Provider To: Other - Discussed patient admission with Dr. Orona and she recommended due to the low curb 65 score that the pt be discharged back too his residential care facility. The documentation as recorded by the Larissa nye Gabriel accurately reflects the service I personally performed and the decisions made by Taylor vaughn Jerry, MD.
--- NOTE | 2017-09-09 11:43 | ED ---
Tino Koroma Angela, scribed for Marcial Vazquez MD on 08/29/17 at 1446 . Shortness of Breath - HPI Summary HPI Summary: This pt is a 62 y/o male, accompanied by facility customer care manager, presenting to [facility] via facility transport from group house for cough and cold-like symptoms. laboratory animal caretaker is unable to give any more history as she is not his customer care manager, had to relief the pt's customer care manager. Pt goes to the wound clinic. PCP: Dr. Medellin PMHx includes cerebral palsy, HTN, high cholesterol, hydronephrosis with stent, endocarditis, C. diff, pressure ulcer. HPI IS LIMITED DUE TO LEVEL 5 CAVEAT - Pt has cerebral palsy, nonverbal. - History of Current Complaint Chief Complaint: EDGeneral Time Seen by Provider: 08/29/17 14:44 Hx Obtained From: Patient Hx From Patient Unobtainable Due To: Other - level 5 caveat Onset/Duration: Still Present Timing: Constant Dyspnea At: Rest Associated Signs & Symptoms: Cough (Productive) - Allergy/Home Medications Allergies/Adverse Reactions: Allergies Allergy/AdvReac Type Severity Reaction Status Date / Time Codeine Allergy Unknown Unknown Verified 08/29/17 13:15 Reaction Details Erythromycin Allergy Unknown Unknown Verified 08/29/17 13:15 Reaction Details Ondansetron [From Zofran] Allergy Unknown Unknown Verified 08/29/17 13:15 Reaction Details Prochlorperazine Allergy Unknown Unknown Verified 08/29/17 13:15 [From Compazine] Reaction Details Promethazine [From Phenergan] Allergy Unknown Unknown Verified 08/29/17 13:15 Reaction Details Sulfa Drugs Allergy Unknown Unknown Verified 08/29/17 13:15 Reaction Details PMH/Surg Hx/FS Hx/Imm Hx Endocrine/Hematology History: Reports: Hx Anemia - THROMBOCYTOPENIA Denies: Hx Diabetes Cardiovascular History: Reports: Hx Hypercholesterolemia, Hx Hypertension Denies: Hx Congestive Heart Failure, Hx Pacemaker/ICD, Other Cardiovascular Problems/Disorders Respiratory History: Denies: Other Respiratory Problems/Disorders GI History: Reports: Hx Ulcer Denies: Other GI Disorders History: Reports: Hx Benign Prostatic Hyperplasia Denies: Hx Dialysis, Hx Renal Disease Musculoskeletal History: Reports: Other Musculoskeletal History - USES WALKER AND ASSIST, BRACE LEFT LEG Denies: Hx Rheumatoid Arthritis Sensory History: Reports: Hx Contacts or Glasses Denies: Hx Hearing Aid Opthamlomology History: Reports: Hx Contacts or Glasses Neurological History: Reports: Hx Developmental Delay, Hx Nerve Disease - CEREBRAL PALSY, Other Neuro Impairments/Disorders - NON VERBAL, CP Psychiatric History: Reports: Hx Anxiety - NO MEDS Denies: Hx Panic Disorder - Surgical History Surgery Procedure, Year, and Place: tumor removed right femur 1991. eye surgery 1974. toe surgery right foot. compound fracture left arm. PT NOT A GOOD HISTORIAN, CLEARED BY DR ROMAN & DR GALINDO VIA CT & X-RAYS 10/12/15 & Hx Anesthesia Reactions: No - Immunization History Date of Tetanus Vaccine: Up to date Date of Influenza Vaccine: Fall 2011 Infectious Disease History: No Infectious Disease History: Reports: Hx Clostridium Difficile - 2015 Denies: Hx Hepatitis, Hx Human Immunodeficiency Virus (HIV), Hx of Known/ Suspected MRSA, Hx Shingles, Hx Tuberculosis, Hx Known/Suspected VRE, Hx Known/ Suspected VRSA, History Other Infectious Disease, Traveled Outside the [place] in Last 30 Days - Family History Family History: LEVEL 5 CAVEAT: FHx LIMITED DUE TO PT CONDITION - Social History Alcohol Use: None Hx Substance Use: No Substance Use Type: Reports: None Hx Tobacco Use: No Smoking Status (MU): Never Smoked Tobacco Review of Systems - ROS Summary Review of Systems Summary: ROS is limited due to level 5 caveat - pt has cerebral palsy Constitutional: Other - cold like symptoms Negative: Fever Positive: Shortness Of Breath, Cough All Other Systems Reviewed And Are Negative: No Physical Exam - Summary Physical Exam Summary: Constitutional: Well-developed, Well-nourished, Alert. (-) Distressed Skin: Warm, Dry. Pt has a stage 2 decubitus ulcer. HENT: Normocephalic; Atraumatic Eyes: Conjunctiva normal Neck: Musculoskeletal ROM normal neck. (-) JVD, (-) Stridor, (-) Tracheal deviation Cardio: Rhythm regular, rate normal, Heart sounds normal; Intact distal pulses; The pedal pulses are 2+ and symmetric. Radial pulses are 2+ and symmetric. (-) Murmur Pulmonary/Chest wall: Effort normal. (-) Respiratory distress, (-) Wheezes, (-) Rales. Rhonchi in the right lower lung field. Abd: Soft, (-) Tenderness, (-) Distension, (-) Guarding, (-) Rebound Musculoskeletal: (-) Edema. Pt has contractions of the hands. Lymph: (-) Cervical adenopathy Neuro: Alert, Oriented x3 Psych: Mood and affect Normal Triage Information Reviewed: Yes Vital Signs On Initial Exam: Initial Vitals Temp Pulse Resp BP Pulse Ox 98.6 F 99 20 145/83 92 08/29/17 13:15 08/29/17 13:15 08/29/17 13:15 08/29/17 13:15 08/29/17 13:15 Vital Signs Reviewed: Yes Diagnostics - Vital Signs Vital Signs Temp Pulse Resp BP Pulse Ox 08/29/17 13:15 98.6 F 99 20 145/83 92 - Laboratory Result Diagrams: 08/29/17 16:26 08/29/17 16:26 Lab Statement: Any lab studies that have been ordered have been reviewed, and results considered in the medical decision making process. - Radiology Chest XR Xray Interpretation: Positive (See Comments) - IMPRESSION: 1. Enlarged cardiac silhoutte, unchanged. 2. Small right basilar infiltrate. Dr. Vazquez has reviewed this radiology report. Radiology Interpretation Completed By: Radiologist Course/Dx - Course Course Of Treatment: This pt is a 62 y/o male, accompanied by facility customer care manager, presenting to [facility] via facility transport from group house for cough and cold-like symptoms. laboratory animal caretaker is unable to give any more history as she is not his customer care manager, had to relief the pt's customer care manager. Pt goes to the wound clinic. PCP: Dr. Medellin. PMHx includes cerebral palsy, HTN, high cholesterol , hydronephrosis with stent, endocarditis, C. diff, pressure ulcer. Rapid influenza A and B are negative. Chest XR shows 1. Enlarged cardiac silhoutte, unchanged. 2. Small right basilar infiltrate. In the ED course, the pt was given duoneb, ciprofloxacin, and cefepime. CURB-65 score is 1. There is no indication for admission. No hypoxia. Pt will be discharged to home with a prescription for Albuterol, Levaquin, and prednisone. - Diagnoses Provider Diagnoses: Pneumonia, Dehydration Discharge - Discharge Plan Condition: Stable Disposition: HOME Prescriptions: Albuterol 2.5MG/3ML (0.083%)* [Ventolin 2.5 MG/3 ML NEB.KATHLEEN*] 2.5 mg INH Q6H # 30 neb.kathleen Levofloxacin TAB* [Levaquin TAB*] 750 mg PO DAILY #5 tab predniSONE TAB* [Deltasone TAB*] 50 mg PO DAILY #5 tab Patient Education Materials: Dehydration (ED), Pneumonia (ED) Referrals: Nav Buchanan MD [Primary Care Provider] - 2 Days Additional Instructions: Please follow up with Dr. Buchanan in 2 days. RETURN TO THE EMERGENCY DEPARTMENT FOR CHANGING OR WORSENING SYMPTOMS. The documentation as recorded by the Tino nye Angela accurately reflects the service I personally performed and the decisions made by , Marcial Vazquez MD.
== END 2017-08-29 19:53 | disposition home or self-care (01) ==
LOC: ED 13:11
DX: J18.9 Pneumonia, unspecified organism (principal); E86.0 Dehydration; R05 Cough; Z86.79 Personal history of other diseases of the circulatory system; R06.02 Shortness of breath
CPT/HCPCS: 36415; 71020; 80053; 85027; 87040; 87502; 94640; 96365; 96374; 96375; 99284; A9270-GY; J0692; J0744; J2930

== ENCOUNTER 2018-10-19 18:24 | Inpatient (IN) | payer MEDICARE, BC, MEDICAID ==
[2018-10-19] MEDS ORDERED: Acetaminophen TAB* 325 MG PO ONE (19:17)
[2018-10-19] MEDS ORDERED: NS 0.9% 1000 ML** 1,000 ML IV ONE (19:17)
[2018-10-19 19:26] LABS: Influenza A Molecular POSITIVE (Negative)
[2018-10-19] MEDS ORDERED: Ketorolac INJ* 30 MG/ML 1 ML VIAL IV PUSH ONE (19:38)
[2018-10-19] MEDS ORDERED: Oseltamivir SUSP 75 MG dose* 75 MG/12.5 ML ORAL.SYRIN PO ONE (19:39)
[2018-10-19 19:56] LABS: Hematocrit 42 % (42-52); Hemoglobin 13.7 g/dl (14.0-18.0); Mean Corpuscular HGB Conc 33 g/dl (31-36); Mean Corpuscular Hemoglobin 32 pg (27-31); Mean Corpuscular Volume 96 fL (80-94); Red Blood Count 4.34 10^6/ul (4.00-5.40); Red Cell Distribution Width 16 % (10.5-15); White Blood Count 5.9 10^3/ul (3.5-10.8)
[2018-10-19] MEDS ORDERED: Oseltamivir CAP* 75 MG CAP PO ONE (20:00)
[2018-10-19 20:04] LABS: Albumin 4.2 g/dL (3.2-5.2); Albumin/Globulin Ratio 1.2 (1-3); BUN/Creatinine Ratio 23.3 (8-20); C Reactive Protein 116.92 mg/L (<8.01); Calcium 9.6 mg/dL (8.6-10.3); EGFR African American 49.2 (>60); EGFR Non-African American 40.6 (>60); Globulin 3.4 g/dL (2-4); Potassium 4.3 mmol/L (3.5-5.0); Total Bilirubin 0.6 mg/dL (0.2-1.0); Total Protein 7.6 g/dL (6.4-8.9)
[2018-10-19 20:17] LABS: ABS Basophils 0 10^3/ul (0-0.2); ABS Eosinophils 0 10^3/ul (0-0.6); ABS Lymphocytes 0.3 10^3/ul (1.0-4.8); ABS Monocytes 0.6 10^3/ul (0-0.8); ABS Nucleated RBC 0 10^3/ul; Eosinophil % 0.1 %; Lymphocyte % 4.7 %; Mean Platelet Volume 11.6 fL (7.4-10.4); Nucleated Red Blood Cells % 0.3; Platelet Count 45 10^3/ul (150-450)
--- NOTE | 2018-10-19 20:25 | ED ---
HPI Febrile Illness - HPI Summary HPI Summary: Patient is a 63 y/o M presenting to ED with complaints of fever and cough onsetting today. He is non-verbal, level 5 caveat, patient's glue size machine operator present to give history. Patient is from [place], glue size machine operator notes that patient was upset at the house today. Break Up Worker notes that one of the patient's housemates was diagnosed with the flu yesterday. He was given Tylenol FAST FOODS WORKER. Break Up Worker states that patient has chronically red eyes but it appears that the right eye' s redness is worsening. Home medications and allergies are reviewed. - History of Current Complaint Chief Complaint: EDFluSymptoms Time Seen by Provider: 10/19/18 19:17 Hx Obtained From: Family/Break Up Worker - glue size machine operator Hx From Patient Unobtainable Due To: Other - level 5 caveat, nonverbal Onset/Duration: Started Hours Ago, Still Present Timing: Constant Current Severity: None Pain Intensity: 0 Pain Scale Used: 0-10 Numeric - 0/10 Aggravating Factors: Nothing Alleviating Factors: Nothing Associated Signs and Symptoms: Cough, Other: - fever, chronic red eyes, worse right eye redness - Additional Pertinent History Primary Care Physician: [id number] - Allergy/Home Medications Allergies/Adverse Reactions: Allergies Allergy/AdvReac Type Severity Reaction Status Date / Time codeine Allergy Unknown Unknown Verified 11/05/17 10:13 Reaction Details erythromycin base Allergy Unknown Unknown Verified 11/05/17 10:13 [From Erythrocin] Reaction Details ondansetron Allergy Unknown Unknown Verified 11/05/17 10:13 [From Zofran (as Reaction hydrochloride)] Details prochlorperazine Allergy Unknown Unknown Verified 11/05/17 10:13 [From Compazine] Reaction Details promethazine [From Phenergan] Allergy Unknown Unknown Verified 11/05/17 10:13 Reaction Details Sulfa (Sulfonamide Allergy Unknown Unknown Verified 11/05/17 10:13 Antibiotics) Reaction Details Home Medications: Home Medications FluvoxaMINE (NF) [Fluvoxamine (NF)] 75 mg PO DAILY 10/19/18 [History Confirmed 10/19/18] Loratadine 10 mg PO DAILY 10/19/18 [History Confirmed 10/19/18] clonazePAM [Clonazepam] 0.5 mg PO DAILY 10/19/18 [History Confirmed 10/19/18] PMH/Surg Hx/FS Hx/Imm Hx Endocrine/Hematology History: Reports: Hx Anemia - THROMBOCYTOPENIA Denies: Hx Diabetes Cardiovascular History: Reports: Hx Hypercholesterolemia Denies: Hx Congestive Heart Failure, Hx Hypertension, Hx Pacemaker/ICD, Other Cardiovascular Problems/Disorders Respiratory History: Denies: Other Respiratory Problems/Disorders GI History: Reports: Hx Ulcer Denies: Other GI Disorders History: Reports: Hx Benign Prostatic Hyperplasia Denies: Hx Dialysis, Hx Renal Disease Musculoskeletal History: Reports: Other Musculoskeletal History - USES WALKER AND ASSIST, BRACE LEFT LEG Denies: Hx Rheumatoid Arthritis Sensory History: Reports: Hx Contacts or Glasses Denies: Hx Hearing Aid Opthamlomology History: Reports: Hx Contacts or Glasses Neurological History: Reports: Hx Developmental Delay, Hx Nerve Disease - CEREBRAL PALSY, Other Neuro Impairments/Disorders - NON VERBAL, CP Psychiatric History: Reports: Hx Anxiety - NO MEDS Denies: Hx Panic Disorder - Cancer History Cancer Type, 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 eye surgery 1974. toe surgery right foot. compound fracture left arm. NEPHRECTOMY. PT NOT A GOOD HISTORIAN, CLEARED BY DR ROMAN & DR GALINDO VIA CT & X-RAYS 10/12/15. & 12/14/15 Hx Anesthesia Reactions: No - Immunization History Date of Tetanus Vaccine: Up to date Date of Influenza Vaccine: Fall 2011 Infectious Disease History: No Infectious Disease History: Denies: Hx Clostridium Difficile, Hx Hepatitis, Hx Human Immunodeficiency Virus (HIV), Hx of Known/Suspected MRSA, Hx Shingles, Hx Tuberculosis, Hx Known/ Suspected VRE, Hx Known/Suspected VRSA, History Other Infectious Disease, Traveled Outside the [place] in Last 30 Days - Family History Known Family History: Positive: Unknown Family History: LEVEL 5 CAVEAT: FHx LIMITED DUE TO PT CONDITION - Social History Alcohol Use: None Hx Substance Use: No Substance Use Type: Reports: None Hx Tobacco Use: No Smoking Status (MU): Never Smoked Tobacco Review of Systems - ROS Summary Review of Systems Summary: level 5 caveat, non-verbal Positive: Fever Positive: Erythema - chronic red eyes, worse right eye redness Positive: Cough All Other Systems Reviewed And Are Negative: No - Comments Additional Review of Systems Comments: level 5 caveat, non-verbal Physical Exam - Summary Physical Exam Summary: GENERAL: Patient is a contracted and nourished male who is lying in the stretcher. Patient is not in any acute respiratory distress. He is ill appearing. HEAD AND FACE: Normocephalic EYES: PERRLA, EOMI x 2. EARS: Hearing grossly intact. MOUTH: Oropharynx within normal limits. NECK: Supple, trachea is midline, no adenopathy, no JVD, no carotid bruit. CHEST: Symmetric, no tenderness at palpation LUNGS: Clear to auscultation bilaterally. No wheezing or crackles. CVS: Tachycardic, S1 and S2 present, no murmurs or gallops appreciated. ABDOMEN: Soft, non-tender. Bowel sounds are normal. No abdominal abnormal pulsations. EXTREMITIES: No edema, no cyanosis or clubbing. NEURO: No acute neurological deficits. Patient is non-verbal at baseline. Triage Information Reviewed: Yes Vital Signs On Initial Exam: Initial Vitals Temp Pulse Resp BP Pulse Ox 102.3 F 137 26 174/94 95 10/19/18 18:41 10/19/18 18:41 10/19/18 18:41 10/19/18 18:41 10/19/18 18:41 Vital Signs Reviewed: Yes Completion Of Physical Exam Limited Due To: Level 5 Diagnostics - Vital Signs Vital Signs Temp Pulse Resp BP Pulse Ox 10/19/18 20:00 122 94 10/19/18 19:57 123 117/80 94 10/19/18 19:48 100 10/19/18 19:35 130 99/83 93 10/19/18 19:07 133 95 10/19/18 19:05 134 119/85 95 10/19/18 18:41 102.3 F 137 26 174/94 95 - Laboratory Lab Results: Lab Results 10/19/18 10/19/18 10/19/18 Range/Units 19:21 19:35 19:35 WBC 5.9 (3.5-10.8) 10^3/ul RBC 4.34 (4.00-5.40) 10^6/ul Hgb 13.7 L (14.0-18.0) g/dl Hct 42 (42-52) % MCV 96 H (80-94) fL MCH 32 H (27-31) pg MCHC 33 (31-36) g/dl RDW 16 H (10.5-15) % Plt Count 45 L (150-450) 10^3/ul MPV 11.6 H (7.4-10.4) fL Neut % (Auto) 84.1 % Lymph % (Auto) 4.7 % [place] % (Auto) 10.8 % Eos % (Auto) 0.1 % Baso % (Auto) 0.3 % Absolute Neuts (auto) 5.0 (1.5-7.7) 10^3/ul Absolute Lymphs (auto) 0.3 L (1.0-4.8) 10^3/ul Absolute Monos (auto) 0.6 (0-0.8) 10^3/ul Absolute Eos (auto) 0 (0-0.6) 10^3/ul Absolute Basos (auto) 0 (0-0.2) 10^3/ul Absolute Nucleated RBC 0 10^3/ul Nucleated RBC % 0.3 Sodium 140 (135-145) mmol/L Potassium 4.3 (3.5-5.0) mmol/L Chloride 106 (101-111) mmol/L Carbon Dioxide 27 (22-32) mmol/L Anion Gap 7 (2-11) mmol/L BUN 40 H (6-24) mg/dL Creatinine 1.72 H (0.67-1.17) mg/dL Est GFR ( Amer) 49.2 (>60) Est GFR (Non-Af Amer) 40.6 (>60) BUN/Creatinine Ratio 23.3 H (8-20) Glucose 153 H (70-100) mg/dL Lactic Acid (0.5-2.0) mmol/L Calcium 9.6 (8.6-10.3) mg/dL Total Bilirubin 0.60 (0.2-1.0) mg/dL AST 21 (13-39) U/L ALT 17 (7-52) U/L Alkaline Phosphatase 104 (34-104) U/L Troponin I 0.00 (<0.04) ng/mL C-Reactive Protein 116.92 H (<8.01) mg/L B-Natriuretic Peptide (<=100) pg/mL Total Protein 7.6 (6.4-8.9) g/dL Albumin 4.2 (3.2-5.2) g/dL Globulin 3.4 (2-4) g/dL Albumin/Globulin Ratio 1.2 (1-3) Influenza A (Rapid) Positive A (Negative) 10/19/18 10/19/18 Range/Units 19:35 19:35 WBC (3.5-10.8) 10^3/ul RBC (4.00-5.40) 10^6/ul Hgb (14.0-18.0) g/dl Hct (42-52) % MCV (80-94) fL MCH (27-31) pg MCHC (31-36) g/dl RDW (10.5-15) % Plt Count (150-450) 10^3/ul MPV (7.4-10.4) fL Neut % (Auto) % Lymph % (Auto) % [place] % (Auto) % Eos % (Auto) % Baso % (Auto) % Absolute Neuts (auto) (1.5-7.7) 10^3/ul Absolute Lymphs (auto) (1.0-4.8) 10^3/ul Absolute Monos (auto) (0-0.8) 10^3/ul Absolute Eos (auto) (0-0.6) 10^3/ul Absolute Basos (auto) (0-0.2) 10^3/ul Absolute Nucleated RBC 10^3/ul Nucleated RBC % Sodium (135-145) mmol/L Potassium (3.5-5.0) mmol/L Chloride (101-111) mmol/L Carbon Dioxide (22-32) mmol/L Anion Gap (2-11) mmol/L BUN (6-24) mg/dL Creatinine (0.67-1.17) mg/dL Est GFR ( Amer) (>60) Est GFR (Non-Af Amer) (>60) BUN/Creatinine Ratio (8-20) Glucose (70-100) mg/dL Lactic Acid 1.6 (0.5-2.0) mmol/L Calcium (8.6-10.3) mg/dL Total Bilirubin (0.2-1.0) mg/dL AST (13-39) U/L ALT (7-52) U/L Alkaline Phosphatase (34-104) U/L Troponin I (<0.04) ng/mL C-Reactive Protein (<8.01) mg/L B-Natriuretic Peptide 207 H (<=100) pg/mL Total Protein (6.4-8.9) g/dL Albumin (3.2-5.2) g/dL Globulin (2-4) g/dL Albumin/Globulin Ratio (1-3) Influenza A (Rapid) (Negative) Result Diagrams: 10/19/18 19:35 10/19/18 19:35 Lab Statement: Any lab studies that have been ordered have been reviewed, and results considered in the medical decision making process. - Radiology cxr Radiology Interpretation Completed By: ED Physician Summary of Radiographic Findings: CXR showed cardiomegaly which is unchanged from previous CXR, present CXR is concerning for PNA as seen on lateral. Pending official report. Re-Evaluation - Re-Evaluation First Eval Re-Evaluation Time: 21:15 Comment: On re-eval, patient is persistently febrile and tachycardic. He appears uncomfortable. Course/Dx - Course Course Of Treatment: Patient is a 63 y/o M presenting to ED with complaints of fever and cough onsetting today. He is non-verbal, level 5 caveat, patient's glue size machine operator present to give history. Patient is from [place], glue size machine operator notes that patient was upset at the house today. Break Up Worker notes that one of the patient's housemates was diagnosed with the flu yesterday. He was given Tylenol FAST FOODS WORKER. Break Up Worker states that patient has chronically red eyes but it appears that the right eye's redness is worsening. On physical exam, patient is noted to be ill-appearing, contracted, and tachycardic. CXR showed cardiomegaly which is unchanged from previous CXR, present CXR is concerning for PNA as seen on lateral. Labs showed Hgb 13.7, MCV 96, MCH 32, RDW 16, Plt count 45, MPV 11.6, absolute lymphs 0.3, INR 1.42, BUN 40, creatinine 1.72, BUN/creatinine 23.3, glucose 153, lactic acid 1.6, trop 0, CRP 116.92, BNP 207. Influenza A was positive. During ED course, patient was given fluids, Tamiflu 75 mg PO ONCE, toradol 15 mg IV PUSH ONCE, Tylenol 975 mg PO ONCE, and piperacillin sod/ tazobactam sod 3.375 gm in sodium chloride 100 mls @ 200 mls/hr IVPB ED ONCE. 2110 Patients case was discussed with Dr. Lara, Dr. Lara accepts for admission. - Diagnoses Provider Diagnoses: PNA (pneumonia), Influenza A - Provider Notifications Discussed Care Of Patient With: Jaydon Lara Time Discussed With Above Provider: 21:11 Instructed by Provider To: Other - 2110 Patients case was discussed with Dr. Lara, Dr. Lara accepts for admission. - Critical Care Time Critical Care Time: 30-74 min - 30 minutes CCT Discharge - Sign-Out/Discharge Documenting (check all that apply): Patient Departure - admit - Discharge Plan Condition: Good Disposition: ADMITTED TO [facility] Referrals: Nav Buchanan MD [Primary Care Provider] - - Billing Disposition and Condition Condition: GOOD Disposition: Admitted to [facility] - Attestation Statements Document Initiated by Scribe: Yes Documenting Scribe: KYLIE MCNAMARA Provider For Whom Scribe is Documenting (Include Credential): SYED KELLEY MD Scribe Attestation: KYLIE Koroma , scribed for SYED KELLEY MD on 10/19/18 at 2132. Scribe Documentation Reviewed: Yes Provider Attestation: The documentation as recorded by the KYLIE nye accurately reflects the service I personally performed and the decisions made by , SYED KELLEY MD Status of Scribe Document: Viewed
[2018-10-19 21:00] LABS: Activated Partial Thrombo Time 32.2 seconds (26.0-36.3); INR 1.42 (0.77-1.02)
[2018-10-19] MEDS ORDERED: Piperacillin/Tazobac ADVAN(*) 3.375 GM in NS 0.9% 100 ML* 100 ML IVPB ONE (21:10)
[2018-10-19 21:34] LABS: Urine Appearance Cloudy; Urine Bacteria 2+ (Absent); Urine Bilirubin Negative (Negative); Urine Blood 2+ (Negative); Urine Color Yellow; Urine Glucose Negative (Negative); Urine Ketones Negative (Negative); Urine Nitrite Negative (Negative); Urine Protein 1+(30 mg/dL) (Negative); Urine Red Blood Cell 3+(>10/hpf) (Absent); Urine Specific Gravity 1.011 (1.010-1.030); Urine Urobilinogen Negative (Negative); Urine White Blood Cell 3+(>20/hpf) (Absent)
[2018-10-19] MEDS ORDERED: NS 0.9% 1000 ML** 2,000 ML IV ONE (22:28)
[2018-10-19] MEDS ORDERED: Zosyn per Pharmacy* NOTE FOLLOW UP SCH (23:00)
--- NOTE | 2018-10-19 23:18 | ADMNOTE ---
Subjective Date of Service: 10/19/18 Interval History: ADMISSION HISTORY AND PHYSICAL PCP: Dewayne CC: fever HPI: Patient is a 63 year old man with intellectual disability, who lives in [facility] home. He was found to have a fever of 100.8 today, unclear what was measured yesterday. Has had a cough recognized today. Patient is non-verbal, cannot give history. Patient has h/o sepsis. Review of chart shows echo in 04/16 showed moderate MR. Family History: Findings - unknown Social History: Findings - disabled, single, lives at [facility] home, no tobacco/alcohol/drugs, mother is legal guardian Past Medical History: Findings - Developmentally delayed, cerebral palsy, HTN, thrombocytopenia, dry eyes, GERD, BPH, moderal mitral regurg, duodenal ulcer 2014, cyst RT kidney, h/o pressure ulcer, h/o endocarditis, h/o c diff, neurogenic bladder, indwelling alamo, recurrent UTIs; PSH stent for hydronephrosis 2015, tumor resection RT femur 1991, mass excised spleen 2015 Review of Systems - Measurements Intake and Output: Intake and Output Last 24 Hours 10/17/18 10/18/18 10/19/18 10/20/18 06:59 06:59 06:59 06:59 Intake Total 1000 Balance 1000 Weight 41.73 kg Intake: IV Fluids 1000 - Review of Systems General Comments: unable to participate in ROS due to non-verbal Objective Active Medications: Home Meds: Clonazepam (Klonopin Tab(*)) 0.5 mg PO DAILY [facility] Ferrous Sulfate (Ferrous Sulfate Tab*) 325 mg PO DAILY [facility] Fluvoxamine Maleate (Fluvoxamine (Nf)) 75 mg PO DAILY [facility]; Protocol Metoprolol Tartrate (Lopressor Tab*) 12.5 mg PO BID [facility] Non-Formulary Medication (Omeprazole [Prilosec]) 40 mg PO DAILY [facility] Non-Formulary Medication (Saccharomyces Boulardii(Nf) [Florastor(Nf)]) 500 mg PO BID [facility] Tamsulosin HCl (Flomax Cap*) 0.4 mg PO DAILY [facility] Vital Signs - 8 hr 10/19/18 10/19/18 10/19/18 18:41 19:05 19:07 Temperature 39.1 C Pulse Rate 137 134 133 Respiratory 26 Rate Blood Pressure 174/94 119/85 (mmHg) O2 Sat by Pulse 95 95 95 Oximetry 02/18/19 02/18/19 02/18/19 21:00 21:12 21:27 Temperature Pulse Rate 104 101 98 Respiratory Rate Blood Pressure 116/60 101/59 (mmHg) O2 Sat by Pulse 95 95 94 Oximetry 10/19/18 10/19/18 10/19/18 22:41 22:51 23:13 Temperature 37.7 C Pulse Rate 89 89 Respiratory Rate Blood Pressure 85/55 94/53 (mmHg) O2 Sat by Pulse 95 96 Oximetry Oxygen Devices in Use Now: None Appearance: alert, awake, no distress Eyes: No Scleral Icterus Ears/Nose/Mouth/Throat: Clear Oropharnyx Neck: NL Appearance and Movements; NL JVP, Trachea Midline Respiratory: Symmetrical Chest Expansion and Respiratory Effort, Clear to Auscultation Cardiovascular: RRR, - - 2/6 murmur precordial, radiates to axilla Abdominal: NL Sounds; No Tenderness; No Distention Lymphatic: No Cervical Adenopathy Extremities: No Edema Skin: No Rash or Ulcers Neurological: - - contractures bilat UE Lines/Tubes/Other Access: Clean, Dry and Intact Alamo Result Diagrams: 10/19/18 19:35 10/19/18 19:35 Additional Lab and Data: Laboratory Tests 10/19/18 10/19/18 10/19/18 19:21 19:35 19:35 INR (Anticoag Therapy) APTT Lactic Acid 1.6 Calcium 9.6 AST 21 ALT 17 Troponin I 0.00 C-Reactive Protein 116.92 H B-Natriuretic Peptide Total Protein 7.6 Albumin 4.2 Urine Color Urine Protein Urine Blood Urine Nitrate Ur Leukocyte Esterase Urine WBC (Auto) Urine RBC (Auto) Influenza A (Rapid) Positive A 10/19/18 10/19/18 10/19/18 19:35 20:45 21:20 INR (Anticoag Therapy) 1.42 H APTT 32.2 Lactic Acid Calcium AST ALT Troponin I C-Reactive Protein B-Natriuretic Peptide 207 H Total Protein Albumin Urine Color Yellow Urine Protein 1+(30 mg/dl) A Urine Blood 2+ A Urine Nitrate Negative Ur Leukocyte Esterase 3+ A Urine WBC (Auto) 3+(>20/hpf) A Urine RBC (Auto) 3+(>10/hpf) A Influenza A (Rapid) Microbiology and Other Data: Microbiology 10/19/18 Unknown Influenza Types A,B Antigen - Final Nasal Specimen received for Influenza A/B Molecular testing Diagnostic Imaging: CXR: infiltrate visible posteriorly on lateral film Assess/Plan/Problems-Billing Assessment: 63 yo man w/ intellectual delay, CP, here with influenza and possible bacterial pneumonia. - Patient Problems (1) Influenza A Current Visit: Yes Status: Acute Priority: High Code(s): J10.1 - FLU DUE TO OTH IDENT INFLUENZA VIRUS W OTH RESP MANIFEST SNOMED Code(s): 686476741 Comment: -admitted to hospital due to risk of sepsis as complication of flu -initiated tamiflu (2) Lobar pneumonia, unspecified organism Current Visit: Yes Status: Acute Priority: High Code(s): J18.1 - LOBAR PNEUMONIA, UNSPECIFIED ORGANISM SNOMED Code(s): 317194341 Comment: -patient has infiltrate visible on lateral CXR -May have staph aureus pneumonia as complication of influenza -Initiated Zosyn, will follow cultures -Supplemental O2 if needed. (3) PUNEET (acute kidney injury) Current Visit: No Status: Acute Priority: Medium Code(s): N17.9 - ACUTE KIDNEY FAILURE, UNSPECIFIED SNOMED Code(s): 08038604 Comment: -Creatinine above baseline -suspect pre-renal, aggressive hydration initiated -will recheck in AM (4) Chronic indwelling Alamo catheter Current Visit: No Status: Chronic Priority: Medium Code(s): Z92.89 - PERSONAL HISTORY OF OTHER MEDICAL TREATMENT SNOMED Code(s): 821368977 Comment: -due to chronic urinary retention -UA shows inflammation, possible infection -will follow urine cultures Status and Disposition: inpatient
[2018-10-20] MEDS: ZOSYN 3.375 GM Q8H per EXTENDED INFUSION IVPB SCH ×4 (01:02→09:53)
[2018-10-20] MEDS: Heparin VIAL(*) 5000 UNITS/ML VIAL (FIVE THOUSAND) SUBCUT SCH ×3 (01:13→13:24)
[2018-10-20] MEDS ORDERED: Piperacillin/Tazobac ADVAN(*) 3.375 GM in NS 0.9% 100 ML* 100 ML IVPB ONE (02:00)
[2018-10-20] MEDS ORDERED: NS 0.9% 1000 ML** 1,000 ML IV SCH ×2 (07:30→11:31)
[2018-10-20] MEDS ORDERED: Ferrous Sulfate TAB* 325 MG PO SCH (09:00)
[2018-10-20] MEDS ORDERED: Tamsulosin CAP* 0.4 MG PO SCH (09:00)
[2018-10-20] MEDS ORDERED: Metoprolol Tartrate TAB* 25 MG PO SCH (09:00)
[2018-10-20] MEDS ORDERED: Pantoprazole TAB * 40 MG TAB PO SCH (09:00)
[2018-10-20] MEDS ORDERED: FLORASTOR PO SCH (09:00)
[2018-10-20] MEDS ORDERED: clonazePAM TAB(*) 0.5 MG PO SCH (09:00)
[2018-10-20] MEDS ORDERED: FLUVOXAMINE PO SCH (09:00)
[2018-10-20] MEDS ORDERED: Oseltamivir CAP* 30 MG CAP PO SCH (09:00)
[2018-10-20] MEDS ORDERED: FLORASTOR 250 MG PO SCH (10:34)
[2018-10-20 15:20] VITALS: BP 144/70
--- NOTE | 2018-10-20 23:13 | DS ---
CC: Dr. Buchanan * DISCHARGE SUMMARY: DATE OF ADMISSION: 10/19/18 DATE OF DISCHARGE: 10/20/18 PRIMARY CARE PROVIDER: Nav Buchanan MD PRIMARY DIAGNOSES: 1. Influenza A. 2. Acute kidney injury. 3. History of chronic indwelling Pena. 4. Recurrent urinary tract infections. SECONDARY DIAGNOSES: Include: 1. Intellectual disability, nonverbal. 2. Cerebral palsy. 3. Hypertension. 4. Thrombocytopenia. MEDICATIONS ON DISCHARGE: Unchanged from admission, except for the addition of oseltamivir 30 mg twice daily for 9 additional tabs renally dosed, and include: 1. Loratadine 10 mg daily. 2. Clonazepam 0.5 mg daily. 3. Florastor 500 mg twice daily. 4. Metoprolol 25 mg twice daily. 5. Ferrous sulfate 325 mg daily. 6. Omeprazole 40 mg daily. 7. Tamsulosin 0.4 mg daily. 8. Multivitamin 1 tab daily. 9. Fluvoxamine 75 mg daily. PERTINENT LABORATORY DATA: BUN 40, creatinine 1.72 on presentation. White blood cell count 5.9. Urine positive for protein, blood, leuk esterase, white blood cells, red blood cells, bacteria, and ascorbic acid. Urine positive for Klebsiella, noted after patient was discharged. HISTORY OF PRESENT ILLNESS AND HOSPITAL COURSE: A 63-year-old man with cerebral palsy from [facility] where there has been influenza outbreak. He presented with cough and fever. It was notable for presentation concern for a pneumonia on chest x-ray. He was admitted to the hospital and given a dose of Zosyn and started on oseltamivir, given IV fluids. He was seen on following day and after IV fluids, antibiotics and oseltamivir, he returned to his baseline. He was out of bed by afternoon into chair, seen with his aide at the bedside. Formal interpretation of chest x-ray indicated cardiomegaly with interstitial opacification, stable from previous examination, likely representing chronic interstitial edema and not a pneumonia. The patient's antibiotics were discontinued in the morning. He was monitored throughout the day. He was discharged with oseltamivir to [facility]. Of note, urine culture returned positive after the patient's discharge. He does have an indwelling Pena catheter, I suspect this is colonization and not infection as the patient presented with cough and fever and found to be positive for influenza. I would not recommend treating this unless patient becomes or has continued fever after completion of his oseltamivir course. At followup, please: 1. Evaluate for resolution of symptoms and fevers. Note positive urine culture as indicated above, which was not treated in the setting of suspicion for colonization, non-infection given his presenting symptoms and influenza A positivity. 2. Could consider repeat BMP for creatinine check. 3. No other specific labs or vitals that need followup. Reasons to return to the hospital including, but not limited to recurrent or worsening symptoms including persistent cough, high fevers, lethargy, lack of appetite or eating, decreased urinary output discussed with patient's aide at bedside, acknowledged understanding. TIME SPENT: Greater than 60 minutes was spent on the discharge of this patient , greater than half was spent [id number] with the patient. [id number]/[facility] #: [id number] PORFIRIO
[2018-10-21] MEDS ORDERED: FLUVOXAMINE 50 MG PO SCH (09:00)
[2018-10-21] MEDS ORDERED: FLUVOXAMINE MALEATE 25 MG PO SCH (09:00)
== END 2018-10-20 15:53 | DRG 153 ==
LOC: ED 18:24 → MEDTELE 21:59
PROVIDERS: ADMIT Internal Medicine; ATTEND Internal Medicine
DX: J11.1 Influenza due to unidentified influenza virus with other respiratory manifestations (principal); N17.9 Acute kidney failure, unspecified; F79 Unspecified intellectual disabilities; G80.9 Cerebral palsy, unspecified; I10 Essential (primary) hypertension; N31.9 Neuromuscular dysfunction of bladder, unspecified; D69.6 Thrombocytopenia, unspecified; K21.9 Gastro-esophageal reflux disease without esophagitis; N40.0 Benign prostatic hyperplasia without lower urinary tract symptoms; I34.0 Nonrheumatic mitral (valve) insufficiency; Z87.440 Personal history of urinary (tract) infections; Z79.899 Other long term (current) drug therapy; Z92.89 Personal history of other medical treatment
CPT/HCPCS: 36415; 71046; 80053; 81003; 81015; 83605; 83880; 84484; 85025; 85610; 85730; 86140; 87040; 87077; 87086; 87186; 87641; 99284; A9270-GY; J1644; J1885; J2543

== ENCOUNTER 2018-10-21 15:12 | Inpatient (IN) | payer MEDICARE, OTHER, MEDICAID ==
[2018-10-21] MEDS ORDERED: Albuterol/Ipratropium NEB.SOL* Albuterol 2.5 MG/Ipratropium 0.5 MG 3 ML INH ONE (15:42)
[2018-10-21] MEDS ORDERED: NS 0.9% 1000 ML** 1,000 ML IV.FLUID IV ONE (15:42)
[2018-10-21] MEDS ORDERED: Levofloxacin 750 MG IVPREMIX(* 750 MG/150 ML BAG IVPB ONE (15:43)
[2018-10-21] MEDS ORDERED: methylPREDNISolone SOD 40 MG* 1 ML VIAL IV ONE (15:43)
[2018-10-21] MEDS ORDERED: ED Vancomycin 1 GM/250 ML 1 GM/250 ML PREMIX.SET IVPB ONE (15:57)
[2018-10-21] MEDS ORDERED: ED Piperacillin/Tazobac 3.375 3.375 GM/100 ML PREMIX.SET IVPB ONE (15:57)
[2018-10-21] MEDS ORDERED: Succinylcholine* 20 MG/ML 10 ML VIAL ONE (16:09)
[2018-10-21] MEDS ORDERED: KETAMINE HCL* 50 MG/ML 10 ML VIAL ONE (16:10)
[2018-10-21] MEDS ORDERED: Propofol* 100 ML ONE (16:17)
--- NOTE | 2018-10-21 16:19 | ED ---
Progress - Progress Note Progress Note: I supervised the PA and performed a history and physical exam. Pt is a chronically-ill 63 y/o male who presents to the ED c/o SOB. He was diagnosed recently with Flu A and has been having increasing SOB and respiratory distress. Pt went into respiratory failure and needed to be intubated. At 16:19 spoke to the pts mother who would like to be called back with an update. Pt is admitted to Dr. Mcclain for respiratory failure and will be brought up to the ICU. CXR: Fluffy infiltrate in right middle lobe. Pending official radiology report. Intubation note: The patient was intubated for respiratory failure. He was preoxygenated with facemask oxygen and full precautions were made. He was kept upright throughout the procedure. He received ketamine 100 mg and succinylcholine 100 mg for RSI procedure. He was intubated with a single attempt with a kaleidoscope #3 fiberoptic blade and a 7.5 ET tube. Following intubation and orogastric tube was placed. Tube placement was confirmed with bilateral breath sounds, capnography and color metric change. It is secured with a tube murillo. Post procedure chest x-ray shows good placement. Oxygen saturations improved. He is able to be suctioned through this. He is maintained on propofol sedation. Course/Dx - Course Course Of Treatment: Nurse's notes reviewed. Critically ill patient with significant pneumonia and respiratory failure. Intubated by me. Admits through the hospitalist service. - Diagnoses Provider Diagnoses: Respiratory failure, Right lower lobe pneumonia, Cerebral palsy, Influenza A - Provider Notifications Discussed Care Of Patient With: Reyes Mcclain Time Discussed With Above Provider: 16:15 Instructed by Provider To: Admit As Inpatient - Critical Care Time Critical Care Time: 30-74 min - CCT is EXCLUSIVE of separately billable procedures. Discharge - Sign-Out/Discharge Documenting (check all that apply): Patient Departure - Admit Patient Received Moderate/Deep Sedation with Procedure: No - Discharge Plan Condition: Critical Disposition: ADMITTED TO [facility] - Billing Disposition and Condition Condition: CRITICAL Disposition: Admitted to [facility] - Attestation Statements Document Initiated by Scribe: Yes Documenting Scribe: Cindy Christianson Provider For Whom Scribe is Documenting (Include Credential): Gumaro Jean-Baptiste MD Scribe Attestation: Cindy Koroma, scribed for Gumaro Jean-Baptiste MD on 10/21/18 at 1819. Scribe Documentation Reviewed: Yes Provider Attestation: The documentation as recorded by the scribe, Cindy Christianson accurately reflects the service I personally performed and the decisions made by me, Gumaro Jean-Baptiste MD Status of Scribe Document: Viewed
[2018-10-21] MEDS ORDERED: KETAMINE HCL* 50 MG/ML 10 ML VIAL IV ONE (16:20)
[2018-10-21] MEDS ORDERED: Succinylcholine* 20 MG/ML 10 ML VIAL IV ONE (16:20)
[2018-10-21] MEDS: Propofol* 100 ML IV SCH (16:21)
--- NOTE | 2018-10-21 16:22 | ED ---
Shortness of Breath - HPI Summary HPI Summary: Pt. is a 63 y.o male who presents to the ER in respiratory failure. Pt. resides at the [facility] with a hx of cerebral palsy. Pt. was admitted 10/19/18 for influenza and possible antibx. Pt. dc on tamiflu. Today, campground caretaker noticed pt. became very SOB and tachypneic. On arrival pt. was saturation in the 60's on RA. Symptoms are severe in severity. HPI is limited due to pt.'s respiratory failure. No current modifying factors. - History of Current Complaint Chief Complaint: EDShortnessOfBreath Time Seen by Provider: 10/21/18 15:39 Hx Obtained From: Patient - Allergy/Home Medications Allergies/Adverse Reactions: Allergies Allergy/AdvReac Type Severity Reaction Status Date / Time codeine Allergy Unknown Unknown Verified 11/05/17 10:13 Reaction Details erythromycin base Allergy Unknown Unknown Verified 11/05/17 10:13 [From Erythrocin] Reaction Details ondansetron Allergy Unknown Unknown Verified 11/05/17 10:13 [From Zofran (as Reaction hydrochloride)] Details prochlorperazine Allergy Unknown Unknown Verified 11/05/17 10:13 [From Compazine] Reaction Details promethazine [From Phenergan] Allergy Unknown Unknown Verified 11/05/17 10:13 Reaction Details Sulfa (Sulfonamide Allergy Unknown Unknown Verified 11/05/17 10:13 Antibiotics) Reaction Details Home Medications: Home Medications LoraTADine TAB(NF) [Claritin 10 MG TAB(NF)] 10 mg PO DAILY 10/21/18 [History Confirmed 10/21/18] Omeprazole (Nf) [Prilosec (NF)] 40 mg PO DAILY 10/21/18 [History Confirmed 10/21] clonazePAM TAB(*) [KlonoPIN TAB(*)] 0.5 mg PO DAILY 10/21/18 [History Confirmed 10/21/18] PMH/Surg Hx/FS Hx/Imm Hx Previously Healthy: Yes Endocrine/Hematology History: Reports: Hx Anemia - THROMBOCYTOPENIA Denies: Hx Diabetes Cardiovascular History: Reports: Hx Hypercholesterolemia Denies: Hx Congestive Heart Failure, Hx Hypertension, Hx Pacemaker/ICD, Other Cardiovascular Problems/Disorders Respiratory History: Denies: Other Respiratory Problems/Disorders GI History: Reports: Hx Ulcer Denies: Other GI Disorders History: Reports: Hx Benign Prostatic Hyperplasia Denies: Hx Dialysis, Hx Renal Disease Musculoskeletal History: Reports: Other Musculoskeletal History - USES WALKER AND ASSIST, BRACE LEFT LEG Denies: Hx Rheumatoid Arthritis Sensory History: Reports: Hx Contacts or Glasses Denies: Hx Hearing Aid Opthamlomology History: Reports: Hx Contacts or Glasses Neurological History: Reports: Hx Developmental Delay, Hx Nerve Disease - CEREBRAL PALSY, Other Neuro Impairments/Disorders - NON VERBAL, CP Psychiatric History: Reports: Hx Anxiety - NO MEDS Denies: Hx Panic Disorder - Cancer History Cancer Type, 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 eye surgery 1974. toe surgery right foot. compound fracture left arm. NEPHRECTOMY. PT NOT A GOOD HISTORIAN, CLEARED BY DR ROMAN & DR GALINDO VIA CT & X-RAYS 10/12/15. & 12/14/15 Hx Anesthesia Reactions: No - Immunization History Date of Tetanus Vaccine: Up to date Date of Influenza Vaccine: Fall 2011 Infectious Disease History: Unable to Obtain/Confirm Infectious Disease History: Denies: Hx Clostridium Difficile, Hx Hepatitis, Hx Human Immunodeficiency Virus (HIV), Hx of Known/Suspected MRSA, Hx Shingles, Hx Tuberculosis, Hx Known/ Suspected VRE, Hx Known/Suspected VRSA, History Other Infectious Disease, Traveled Outside the [place] in Last 30 Days - Family History Known Family History: Positive: Unknown Family History: LEVEL 5 CAVEAT: FHx LIMITED DUE TO PT CONDITION - Social History Occupation: Disabled Lives: Residential Alcohol Use: None Hx Substance Use: No Substance Use Type: Reports: None Hx Tobacco Use: No Smoking Status (MU): Never Smoked Tobacco Review of Systems Positive: Shortness Of Breath, Cough All Other Systems Reviewed And Are Negative: No Physical Exam Triage Information Reviewed: Yes Vital Signs On Initial Exam: Initial Vitals Temp Pulse Resp BP Pulse Ox 99.0 F 104 24 78/62 66 10/21/18 15:21 10/21/18 15:21 10/21/18 15:21 10/21/18 15:21 10/21/18 15:21 Vital Signs Reviewed: Yes Appearance: Positive: Ill-Appearing - Pt. sitting up in bed, very tachypneic. shoveler present., Cachectic Skin: Positive: Pale Head/Face: Positive: Normal Head/Face Inspection Eyes: Positive: Normal, EOMI, Conjunctiva Inflammed Neck: Positive: Supple Respiratory/Lung Sounds: Positive: Rales, Rhonchi, Wheezes Cardiovascular: Positive: Normal, RRR Musculoskeletal: Positive: Other. Negative: Edema Left, Edema Right Neurological: Positive: Normal, CN Intact II-III Psychiatric: Positive: Anxious Diagnostics - Vital Signs Vital Signs Temp Pulse Resp BP Pulse Ox 10/21/18 15:45 92 10/21/18 15:34 123 25 148/82 67 10/21/18 15:21 99.0 F 104 24 78/62 66 - Laboratory Result Diagrams: 10/21/18 16:00 10/21/18 16:00 Lab Statement: Any lab studies that have been ordered have been reviewed, and results considered in the medical decision making process. Course/Dx - Course Course Of Treatment: Pt. presenting in respiratory failure. Respiratory paged. Sepsis protocol ordered. Pt. examined by Dr. Jean-Baptiste as well. Pt. tried briefly on vapotherm without improvement. Pt. was then intubated by Dr. Jean-Baptiste given worsening respiratory failure. Please see Dr. Jean-Baptiste's progress notes for procedure documentation. I spoke with on site coordinator, Dr. Oliveira, who would like pt. admitted to hospitalist since he is not in house. Case discussed with Dr. Mcclain who accepts pt. - Diagnoses Differential Diagnosis/HQI/PQRI: Positive: Airway Obstruction, CHF, COPD Exacerbation, AL, Pneumonia, Pneumothorax, Pulmonary Embolism Provider Diagnoses: Respiratory failure - Critical Care Time Critical Care Time: 30-74 min - 45 minutes critical care time including direct pt. care and consultation. Excludes billable procedures. Discharge - Sign-Out/Discharge Documenting (check all that apply): Patient Departure Patient Received Moderate/Deep Sedation with Procedure: Yes - Discharge Plan Condition: Stable Disposition: ADMITTED TO [facility] Referrals: Nav Buchanan MD [Primary Care Provider] - - Billing Disposition and Condition Condition: STABLE Disposition: Admitted to [facility]
[2018-10-21 16:24] LABS: INR 1.22 (0.77-1.02)
[2018-10-21 16:26] LABS: Hematocrit 41 % (42-52); Hemoglobin 13.3 g/dl (14.0-18.0); Mean Corpuscular HGB Conc 33 g/dl (31-36); Mean Corpuscular Hemoglobin 32 pg (27-31); Mean Corpuscular Volume 97 fL (80-94); Red Blood Count 4.17 10^6/ul (4.00-5.40); Red Cell Distribution Width 16 % (10.5-15); White Blood Count 5.7 10^3/ul (3.5-10.8)
[2018-10-21 16:35] LABS: Albumin 3.9 g/dL (3.2-5.2); Albumin/Globulin Ratio 1.3 (1-3); BUN/Creatinine Ratio 22.7 (8-20); C Reactive Protein 62.46 mg/L (<8.01); Calcium 8.7 mg/dL (8.6-10.3); EGFR African American 47.9 (>60); EGFR Non-African American 39.6 (>60); Potassium 4.1 mmol/L (3.5-5.0); Total Bilirubin 0.4 mg/dL (0.2-1.0); Total Protein 6.9 g/dL (6.4-8.9); Troponin I 0.01 ng/mL (<0.04)
[2018-10-21] MEDS ORDERED: Vancomycin(*) 1,000 MG BAG/ADDV IVPB ONE (16:38)
[2018-10-21] MEDS ORDERED: Piperacillin/Tazobac (*) 3.375 GM BAG ONE (16:39)
[2018-10-21] MEDS ORDERED: ZOSYN 3.375 GM x ONE DOSE over 30 miuntes IVPB ×2 (17:00)
[2018-10-21] MEDS ORDERED: Vancomycin(*) 1,000 MG in NS 0.9% 250 ML* 250 ML IVPB ONE (17:00)
[2018-10-21] MEDS ORDERED: Vancomycin per Pharmacy* NOTE FOLLOW UP SCH (17:00)
[2018-10-21 17:07] LABS: ABS Basophils 0.1 10^3/ul (0-0.2); ABS Eosinophils 0 10^3/ul (0-0.6); ABS Monocytes 0.2 10^3/ul (0-0.8); ABS Neutrophils 4.3 10^3/ul (1.5-7.7); ABS Nucleated RBC 0 10^3/ul; Eosinophil % 0 %; Lymphocyte % 18.3 %; Mean Platelet Volume 12.8 fL (7.4-10.4); Nucleated Red Blood Cells % 0; Platelet Count 59 10^3/ul (150-450)
[2018-10-21] MEDS ORDERED: NS 0.9% 1000 ML** 1,000 ML IV ONE ×3 (17:19→19:55)
--- NOTE | 2018-10-21 19:11 | HP ---
CC: Dr. Buchanan * ADMISSION HISTORY AND PHYSICAL: DATE OF ADMISSION: 10/21/18 PRIMARY CARE PROVIDER: Dr. Buchanan. SOURCE OF INFORMATION: History obtained from review of past medical records as well as interview with aide at bedside. CHIEF COMPLAINT: Shortness of breath. HISTORY OF PRESENT ILLNESS: This is a 63-year-old man with intellectual disability secondary to cerebral palsy, lives at [facility], who was admitted to [facility] on 10/19/18 with cough and fever, found to have influenza A. At that point, initial read of chest x-ray had concern for early pneumonia; however, official read the following day changed official read to not include a pneumonia. The patient received 1 dose of antibiotics, started on Tamiflu during that hospital stay from 10/19/18 to 10/20/18. He received IV fluid and on the day of discharge was up in bed, interactive, at his baseline according to his aide. He was discharged back to [facility]. Apparently, he was close to his normal self; however, night prior to re-presentation was groaning in bed, it is how usually indicates that he is uncomfortable, but had no shortness of breath or indication of impending respiratory failure. At 1 p.m., he was seen watching TV with the aide who is at his bedside now. At 3 p.m., he had a sudden change in clinical status with increased shortness of breath and was sent to [facility] ED. In [facility] ED, he had increased work of breathing and was immediately moved to intubation by ER provider. Repeat chest x-ray at this time indicates large right middle lobe pneumonia. The patient is nonverbal, so unable to participate in the remainder of exam. PAST MEDICAL HISTORY: Includes recently diagnosed influenza A, cerebral palsy, hypertension, thrombocytopenia, GERD, BPH, duodenal ulcer in 2014, cyst in the right kidney, history of normal pressure hydrocephalus, history of endocarditis , history of C. diff, neurogenic bladder with indwelling Pena catheter, history of recurrent UTI. PAST SURGICAL HISTORY: Stent for hydronephrosis in 2016, tumor resection of the right femur in 1991, and mass excised from the spleen in 2016. MEDICATIONS: From most recent discharge include: 1. Ferrous sulfate 325 mg daily. 2. Metoprolol tartrate 12.5 mg daily. 3. Loratadine 10 mg daily. 4. Fluvoxamine 75 mg daily. 5. Clonazepam 0.5 mg daily. 6. Tamsulosin 0.4 mg daily. 7. Omeprazole 40 mg daily. 8. Multivitamin 1 tablet daily. 9. Florastor 500 mg twice daily. 10. Tamiflu 30 mg renally dosed twice daily for 9 additional days at the time of discharge yesterday. ALLERGIES: To CODEINE, ERYTHROMYCIN BASE, ONDANSETRON, PROCHLORPERAZINE, PROMETHAZINE, and SULFA. FAMILY HISTORY: Unknown. SOCIAL HISTORY: Disabled. Lives at [facility]. No tobacco, alcohol, or illicit. Mother is reportedly a legal guardian. REVIEW OF SYSTEMS: As per HPI. Includes groaning overnight; however, otherwise up in chair and interactive, improved from previous hospital stay until decompensation. PHYSICAL EXAMINATION GENERAL: Thin-appearing man, intubated, sitting up in bed, sedated, not interactive, an ET tube in place, appears midline. VITAL SIGNS: In the emergency room, blood pressure 115/69, decreased to 98/64 after initiation of propofol; heart rate 106; respiratory rate is now 16; 98% on ventilator, 50% on presentation; T-max 99 Fahrenheit. LUNGS: He has breath sounds bilaterally, decreased in the right base up one- half with rales in the right base; rhonchi, more in the middle lobe. ABDOMEN: Soft, nontender and nondistended. EXTREMITIES: Warm and well perfused. NEUROLOGIC: He is A and O x0 and sedated. DIAGNOSTIC STUDIES/LAB DATA: Labs are reviewed. Lactic acid 2.1, BUN 40, creatinine 1.7, chloride 115, CRP 62. ABG; pH 7.25, pCO2 of 45, and pO2 of 104. White blood cell count of 5.7, hemoglobin 13.3, platelets are 59. Data reviewed. Chest x-ray, right-sided pneumonia. ET tube in place, but could be advanced 4 cm, stigmata of COPD. ASSESSMENT AND PLAN: A 63-year-old man with recent diagnosis of influenza A, discharged home, now returning with superimposed right-sided pneumonia causing hypoxic respiratory failure. 1. Hypoxic respiratory failure, requiring endotracheal intubation. NG tube also in place. Discussed with Dr. Oliveira who will cover until tomorrow. Broad- spectrum antibiotics, going to receive Zosyn and vanco in the emergency room. We will continue vancomycin, change to cefepime to avoid kidney injury. Check strep pneumo as well as Legionella. A liter of bolus normal saline now with blood pressures lower after starting propofol, then continue 2 L at 150 cc per hour. Continue propofol for sedation. ABG 1 hour after intubation. Head of the bed at 30 degrees. 2. Acute kidney injury, not resolved from previous hospital stay. Fluid as above. Recheck in the morning. 3. Lactic acidosis, suspect in the setting of hypoxia. Repeat at 2100. 4. Thrombocytopenia noted. Platelets of 59. We will continue anticoagulation to prevent for DVT prophylaxis. Careful attention to platelets tomorrow. Stop DVT prophylaxis if platelets drop less than 50. 5. Influenza A. Continue Tamiflu for 4 additional days, renally dosed 30 mg twice daily. 6. Neurogenic bladder. Indwelling Pena in place. 7. Hypotension. Holding home metoprolol. May need to restart as propofol decreased. 8. Cerebral palsy, stable. The patient is nonverbal, but can express interests usually by groaning, likes to watch TV. 9. DVT prophylaxis. As noted above heparin. Repeat CBC in the morning. Careful attention to platelets, withhold heparin if platelets drop less than 50. TIME SPENT: Greater than 60 minutes critical care time was spent on admission with this patient, greater than half spent [id number] with the patient. [id number]/[facility] #: [id number] PORFIRIO
[2018-10-21] MEDS: NS 0.9% 1000 ML** 1,000 ML IV SCH (21:00)
[2018-10-21] MEDS ORDERED: Metoprolol Tartrate TAB* 25 MG PO SCH (21:00)
[2018-10-21] MEDS: Heparin VIAL(*) 5000 UNITS/ML VIAL (FIVE THOUSAND) SUBCUT SCH (22:08)
[2018-10-21] MEDS: Oseltamivir CAP* 30 MG CAP PO SCH (22:08)
[2018-10-21] MEDS: Pantoprazole IV* 40 MG IV SCH (22:08)
[2018-10-22] MEDS: Propofol* 100 ML IV SCH ×4 (01:10→20:25)
[2018-10-22] MEDS: NS 0.9% 1000 ML** 1,000 ML IV SCH (04:37)
[2018-10-22 04:50] LABS: Hematocrit 33 % (42-52); Hemoglobin 10.7 g/dl (14.0-18.0); Mean Corpuscular HGB Conc 33 g/dl (31-36); Mean Corpuscular Hemoglobin 31 pg (27-31); Mean Corpuscular Volume 97 fL (80-94); Red Blood Count 3.41 10^6/ul (4.00-5.40); Red Cell Distribution Width 17 % (10.5-15); White Blood Count 6.2 10^3/ul (3.5-10.8)
[2018-10-22 04:59] LABS: BUN/Creatinine Ratio 23.2 (8-20); Calcium 7.8 mg/dL (8.6-10.3); EGFR African American 55.4 (>60); EGFR Non-African American 45.8 (>60); Potassium 3.8 mmol/L (3.5-5.0)
[2018-10-22 05:05] LABS: ABS Basophils 0 10^3/ul (0-0.2); ABS Eosinophils 0 10^3/ul (0-0.6); ABS Lymphocytes 0.4 10^3/ul (1.0-4.8); ABS Monocytes 0.3 10^3/ul (0-0.8); ABS Neutrophils 5.5 10^3/ul (1.5-7.7); ABS Nucleated RBC 0 10^3/ul; Burr Cells 1+; Eosinophil % 0.1 %; Large Platelets Present; Lymphocyte % 6.4 %; Mean Platelet Volume 13.6 fL (7.4-10.4); Nucleated Red Blood Cells % 0; Platelet Count 32 10^3/ul (150-450)
[2018-10-22] MEDS: Heparin VIAL(*) 5000 UNITS/ML VIAL (FIVE THOUSAND) SUBCUT SCH (05:47)
[2018-10-22] MEDS: Cefepime(*) 0.5 GM in NS 0.9% 50 ML* 50 ML IVPB SCH (07:59)
[2018-10-22] MEDS: Oseltamivir CAP* 30 MG CAP PO SCH ×2 (08:00→21:00)
[2018-10-22] MEDS: Multivitamins/Minerals TAB PO SCH (08:00)
[2018-10-22] MEDS: Pantoprazole TAB * 40 MG TAB PO SCH (08:00)
[2018-10-22] MEDS: Tamsulosin CAP* 0.4 MG PO SCH (08:00)
[2018-10-22] MEDS: CMCS:FluvoxaMINE (NF) 50 MG TAB PO SCH (08:00)
[2018-10-22] MEDS: LR @ 40 MLS/HR IV SCH ×3 (08:00→15:31)
[2018-10-22] MEDS ORDERED: Cefepime ADVAN(*) 2 GM ADDV.VIAL IVPB SCH (09:00)
[2018-10-22] MEDS: Chlorhexidine MOUTHWASH 0.12%* 15 ML UDC SWISH SPIT SCH ×4 (10:44→21:01)
--- NOTE | 2018-10-22 11:35 | PN ---
Date of Service: 10/22/18 Critical Care Services: 63 y/o male with recent hx influenza who was admitted here yesterday with probable pneumonia in right lung - required intubation and mechanical ventilation, and on the ventilator this AM - sedated with propofol. Other problems include thrombocytopenia and a prior cardiac ECHO showing a moderate/ large pericardial effusion and mitral insufficiency. Patient is a resident of [facility]. Vital Signs: Temp Pulse Resp BP SpO2 FiO2 96.3 F 60 14 94/62 100 21 Physical Exam: Gen:Unresponsive (on propofol) HEENT:Ooropharynx clear Lungs: Scattered rhonchi. Cardiac: IV-V/ holosystolic murmur heard best at apex and axilla Abdomen: Not distended. Extremities: No cyanosis or edema. Fluid Balance (Past 24 Hours): 10/22/18 06:59 Intake Total 3424 Output Total 300 Balance 3124 Weight 103 lb Intake: IV Fluids 3394 NS (0.9%) 3294 NG Tube Irrigate Amount 30 Output: Urine 180 Pena 120 Other: Date of Last Bowel 10/22/18 Movement # Bowel Movements 1 Estimated Stool Amount Small Labs: Laboratory Results - last 24 hr 10/21/18 10/21/18 10/22/18 18:30 21:14 04:31 WBC 6.2 Hgb 10.7 L Hct 33 L MCV 97 H Plt Count 32 L ABG pH 7.32 L ABG pCO2 32 L ABG pO2 104 H ABG HCO3 18.3 L ABG O2 Saturation 99.7 H ABG Base Excess -8.5 L Respiration Rate 14 Ventilator Type 500 Vent Mode cmv FiO2 30% PEEP 5 Potassium Carbon Dioxide Anion Gap BUN Creatinine Est GFR ( Amer) Est GFR (Non-Af Amer) BUN/Creatinine Ratio Glucose Lactic Acid 0.6 10/22/18 04:31 Sodium 146 H Potassium 3.8 Chloride 122 H Carbon Dioxide 16 L Anion Gap 8 BUN 36 Creatinine 1.55 BUN/Creatinine Ratio 23.2 H Glucose 136 H Lactic Acid Calcium 7.8 L Total Bilirubin AST ALT Alkaline Phosphatase Troponin I C-Reactive Protein B-Natriuretic Peptide Total Protein Albumin Globulin Albumin/Globulin Ratio Studies: Cardiac ECHO: Ordered Nutrition: Tube feedings (to be started) Impression: 1. Pneumonia right lung - responsible pathogen not yet isolated. Ability to oxygenate on room air is encouraging. 2. Thrombocytopenia (chronic) of unclear etiology - past w/u has been unrevealing. 3. Mitral insufficiency (severe by amplitude of murmur) 4. renal insufficiency (? prerenal component) 5. Hx of pericardial effusion Plan: 1. Continue empiric antibiotics for the pneumonia 2. Cardiology evaluation 3. If blood cultures positive - will need a YVAN 4. Wean as soon as feasable 5. Start tube feedings if unable to wean in the next 48-72 hours. Critical Care Time: 45 minutes (includes time reviewing patients prior medical history)
--- NOTE | 2018-10-22 11:38 | ECHO ---
Patient: LUIS ARREGUIN [facility] Rec#: [id number] : 1955 Date: 10/22/2018 Age: 63y Height: 168 cm / 66.1 in Weight: 47 kg / 103.6 lbs Sex: M BSA: 1.51 Room#: ICU 3 Admit Date#: 10/21/2018 Type: Inpatient Referring: Steve Oliveira MD Reading: Parrish Jefferson MD Veterans Service Representative: Madeline Fontaine,RDCS,RDMS CC: Nav Buchanan Transthoracic Echocardiogram Indication: Respiratory failure BP: 96/58 HR: 55 Rhythm: Bradycardia Findings History: Flu A, HTN, endocarditis, cerebral palsy, MV insufficiency Technical Comments: The study quality is good. Left Ventricle: The left ventricular chamber size is normal. The estimated ejection fraction is 55-60%. There is no consistent Doppler evidence of clinically significant diastolic dysfunction. The patient was unable to perform a Valsalva maneuver. Left Atrium: The left atrium is mild to moderately dilated. Right Ventricle: The right ventricle wall thickness is mildly increased. The right ventricular cavity size is normal. The right ventricular global systolic function is low normal. Right Atrium: The right atrial cavity size is normal. There is evidence of an atrial septal aneurysm. with bowing into the RA. Aortic Valve: The aortic valve is trileaflet. Systolic excursion of the aortic valve is normal. There is a trace of aortic regurgitation. There is no evidence of aortic stenosis. Mitral Valve: There is mitral annular calcification. The mitral valve leaflets are moderately thickened.This is a mobile lesion attached to the anterior leafelt of the mitral valve. It seems to prolapse into the LA during systole and moves adjacent to the "Qtip" of the LA; consider ruptured chordae vs vegetation of uncertain age vs myxomatous degeneration. Cannot exclude a vegetation at the orifice of the CHARLES but the findings are more likely related to the prolapsing chordae. There is prolapse of the anterior leaflet and a possible flail segment. There is severe mitral regurgitation. There are multiple jets including prominent posterolateral directed wall jet which wraps around the LA and perhaps into a pulmonary vein. The is also a medially directed jet. There is no evidence of mitral stenosis. Tricuspid Valve: The tricuspid valve leaflets are normal. There is moderate tricuspid regurgitation. There is evidence of mild to moderate pulmonary hypertension. Pulmonic Valve: There is no evidence of pulmonic valve thickening. There is a trace pulmonic regurgitation. Pericardium: There is a moderate pericardial effusion.No consistent evidence of hemodynamic compromise. The effusion measures up to 2.2 cm in the short axis view. PLAX 1.9cm (LV), PSAX 2.2cm (LV-paps) and 0.9cm (RV), A4C 2.4cm (RA), 0.9cm (LV), A2C 1.7cm (LV inferior wall) resp variation MV 28% (may be exagerated due to technique and respiration related movement). LVOT 17% Aorta: The aortic root appears normal. There is no dilatation of the aortic arch. Pulmonary Artery: The main pulmonary artery is not well visualized. Venous: The inferior vena cava is not visualized. Conclusions The estimated ejection fraction is 55-60%. The left atrium is mild to moderately dilated. The right ventricle wall thickness is mildly increased. The right ventricular global systolic function is low normal. There is evidence of an atrial septal aneurysm with bowing into the RA. The mitral valve leaflets are moderately thickened.This is a mobile lesion attached to the anterior leafelt of the mitral valve. It seems to prolapse into the LA during systole and moves adjacent to the "Qtip" of the LA; consider ruptured chordae vs vegetation of uncertain age vs myxomatous degeneration. Cannot exclude a vegetation at the orifice of the CHARLES but the findings are more likely related to the prolapsing chordae. There is prolapse of the anterior leaflet and a possible flail segment. There is severe mitral regurgitation. There are multiple jets including a prominent posterolateral directed wall jet which wraps around the LA and perhaps into a pulmonary vein. The is also a medially directed jet. There is moderate tricuspid regurgitation. There is evidence of mild to moderate pulmonary hypertension. There is a moderate pericardial effusion. No consistent evidence of hemodynamic compromise. The effusion measures up to 2.2 cm in the short axis view. Compared to 2016, the lesion measures smaller at .5 x .9 cm this time compared to 1 x 1.8 last time; also, the MR has increased from moderate then to severe now. Measurements Name Value Normal Range RVIDd (AP) 2D 2 cm (0.9 - 2.6) RVDdMajor (2D) 1.8 cm (2.2 - 4.4) RAd ISD 4CH 3.8 cm (3.4 - 4.9) RA (A4C)W 1.7 cm (2.9 - 4.6) IVSd (2D) 1 cm (0.6 - 1) LVPWd (2D) 1.1 cm (0.6 - 1) LVIDd (2D) 5.1 cm (3.6 - 5.4) LVIDs (2D) 3.4 cm - LV FS (2D) 34 % (25 - 45) Aortic Annulus 2.3 cm (1.4 - 2.6) Ao root diameter (2D) 2.9 cm (2.1 - 3.5) Ascending Ao 2.5 cm (2.1 - 3.4) Aortic arch 2.5 cm (1.8 - 3.4) LAd ISD 4CH 6.8 cm (2.9 - 5.3) LA ISD 4CH W 4.5 cm (2.5 - 4.5) Name Value Normal Range LA ESV BP (A/L) index 36 ml/m2 - Name Value Normal Range MV E-wave Vmax 1.2 m/sec - MV deceleration time 177 msec - MV A-wave Vmax 0.9 m/sec - MV E:A ratio 1.2 ratio - LV septal e' Vmax 0.08 m/sec - LV lateral e' Vmax 0.11 m/sec - LV E:e' septal ratio 16 ratio - LV E:e' lateral ratio 11 ratio - Name Value Normal Range AV Vmax 0.7 m/sec - AV VTI 11 cm - AV peak gradient 2 mmHg - AV mean gradient 1 mmHg - LVOT Vmax 0.5 m/sec - LVOT VTI 8 cm - LVOT peak gradient 1 mmHg - LVOT mean gradient 1 mmHg - ABIEL Vmax 0.7 m/sec - Name Value Normal Range MV Vmax 1.3 m/sec - MV VTI 33 cm - MV peak gradient 7 mmHg - MV mean gradient 2 mmHg - MV PHT 71 msec - MR Vmax 5.2 m/sec - MR VTI 184 cm - MR flow (PISA) 499 ml/sec - MR ERO 1 cm2 - MR PISA radius 1.6 cm - MR alias Vmax 31 cm/sec - MVA (PHT) 3.1 cm2 - Name Value Normal Range TR Vmax 3 m/sec - TR peak gradient 36 mmHg - RAP 8 mmHg - RVSP 44 mmHg - Name Value Normal Range PV Vmax 0.5 m/sec - PV peak gradient 1 mmHg -
--- NOTE | 2018-10-22 15:36 | CONSULT ---
Subjective Date of Service: 10/22/18 Interval History: Admission Date: 10/21/18 Consult date 10/22/2018 Provider: Hospitalist/[employer] CHIEF COMPLAINT: Agitation noted by [facility] staff. Reason for consult: Severe MR, CHF HISTORY OF PRESENT ILLNESS: This is a 63-year-old man with intellectual disability secondary to cerebral palsy, lives at [facility] and nonverbal at baseline. Patient was recently treated for influenza. He is now admitted with respiratory failure, intubated and echocardiogram showing a flail mitral valve leaflet with very severe MR. He is critically ill. His only close relative is his mother who is reportedly suffering from dementia. PAST MEDICAL HISTORY: cerebral palsy hypertension, thrombocytopenia GERD BPH duodenal ulcer in 2014 cyst in the right kidney history of normal pressure hydrocephalus, history of endocarditis, history of C. diff, neurogenic bladder with indwelling Pena catheter, history of recurrent UTI. 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 ALLERGIES: To CODEINE, ERYTHROMYCIN BASE, ONDANSETRON, PROCHLORPERAZINE, PROMETHAZINE, and SULFA. FAMILY HISTORY: above SOCIAL HISTORY: Disabled. Lives at [facility]. No tobacco, alcohol, or illicit. Mother is a legal guardian. Medications Active Medications: Cetirizine HCl (Zyrtec*) 10 mg PO QPM [facility] Chlorhexidine Gluconate (Peridex Mouth Wash 0.12%*) 15 ml SWISH SPIT Q4HR [facility] Last Admin: 10/22/18 15:17 Dose: 15 ml Fluvoxamine Maleate (Fluvoxamine (Nf)) 75 mg PO DAILY [facility]; Protocol Last Admin: 10/22/18 08:00 Dose: 75 mg Propofol (Diprivan*) 100 mls @ 5.008 mls/hr IV .(Initial Rate) [facility]; Protocol Last Admin: 10/22/18 12:30 Dose: 10 mls/hr Sodium Chloride (Ns 0.9% 1000 Ml) 1,000 mls @ 150 mls/hr IV PER RATE [facility] Stop: 10/22/18 23:39 Last Admin: 10/22/18 04:37 Dose: 150 mls/hr Cefepime HCl 0.5 gm/ Sodium (Chloride) 50 mls @ 100 mls/hr IVPB Q24H [facility] Last Admin: 10/22/18 07:59 Dose: 100 mls/hr Vancomycin HCl 750 mg/ Sodium (Chloride) 250 mls @ 166.667 mls/hr IVPB Q24H [facility] Lactated Ringer's (Lactated Ringers 1000 Ml Bag*) 1,000 mls @ 150 mls/hr IV PER RATE [facility] Stop: 10/22/18 22:39 Last Admin: 10/22/18 15:19 Dose: 150 mls/hr Multivitamins/Minerals (Theragran/Minerals Tab*) 1 tab PO DAILY [facility] Last Admin: 10/22/18 08:00 Dose: 1 tab Oseltamivir Phosphate (Tamiflu Cap*) 30 mg PO 0900,2100 [facility] Stop: 10/25/18 09:01 Last Admin: 10/22/18 08:00 Dose: 30 mg Pantoprazole Sodium (Protonix Tab*) 40 mg PO DAILY [facility] Last Admin: 10/22/18 08:00 Dose: 40 mg Pantoprazole Sodium (Protonix Iv*) 40 mg IV Q24H [facility] Last Admin: 10/21/18 22:08 Dose: 40 mg Pharmacy Consult (Vancomycin Per Pharmacy*) 1 note FOLLOW UP .VANC PER PHARMACY [facility] Pharmacy Profile Note (Vancomycin Trough Check) 1 note FOLLOW UP 1630 ONE Stop: 10/24/18 16:31 Tamsulosin HCl (Flomax Cap*) 0.4 mg PO DAILY [facility] Last Admin: 10/22/18 08:00 Dose: 0.4 mg Home Medications: Tamsulosin CAP* [Flomax CAP*] 0.4 mg PO DAILY 06/18/13 [History Confirmed ] Multivitamins/Minerals TAB* [Theragran/minerals TAB*] 1 tab PO DAILY 05/01/15 [ History Confirmed 10/21/18] Ferrous Sulfate TAB* 325 mg PO DAILY #30 tab 12/21/15 [Rx Confirmed 10/21/18] Metoprolol Tartrate TAB* [Lopressor TAB*] 0.5 tab PO BID 01/01/16 [History Confirmed 10/21/18] Saccharomyces Boulardii(NF) [Florastor(NF)] 500 mg PO BID 04/21/16 [History Confirmed 10/21/18] FluvoxaMINE (NF) [Fluvoxamine (NF)] 75 mg PO DAILY 10/19/18 [History Confirmed 10/21/18] Oseltamivir CAP* [Tamiflu CAP*] 30 mg PO 0900,2100 #9 cap 10/20/18 [Rx Confirmed 10/21/18] LoraTADine TAB(NF) [Claritin 10 MG TAB(NF)] 10 mg PO DAILY 10/21/18 [History Confirmed 10/21/18] Omeprazole (Nf) [Prilosec (NF)] 40 mg PO DAILY 10/21/18 [History Confirmed 10/21] clonazePAM TAB(*) [KlonoPIN TAB(*)] 0.5 mg PO DAILY 10/21/18 [History Confirmed 10/21/18] Review of Systems - Measurements Intake and Output: Intake and Output Last 24 Hours 10/20/18 10/21/18 10/22/18 10/23/18 06:59 06:59 06:59 06:59 Intake Total 3424 1389 Output Total 300 162 Balance 3124 1227 Weight 103 lb 2.821 oz Intake: IV Fluids 3394 1254 LR 872 NS (0.9%) 3294 382 IVPB 55 Cefepime 55 Medicated IV 80 propofol 80 NG Tube Irrigate Amount 30 Output: Urine 180 Pena 120 162 Other: Date of Last Bowel 10/22/18 Movement # Bowel Movements 1 Estimated Stool Amount Small - Review of Systems Review of Systems Statement: unable to be obtained due to mental status Objective Vital Signs: Temp Pulse Resp BP Pulse Ox 96.3 F 51 14 81/54 100 10/22/18 15:00 10/22/18 15:01 10/22/18 15:00 10/22/18 15:00 10/22/18 15:01 Oxygen Devices in Use Now: Mechanical Ventilator Appearance: chronically ill and malnourished appearing Ears/Nose/Mouth/Throat: Clear Oropharnyx Neck: Trachea Midline, - - uncertain jvp Respiratory: - - transmitted breath sounds from ventilator, unable to lift to listen to back Cardiovascular: RRR, No Edema - rrr, 4/6 systolic murmur apex, - Abdominal: NL Sounds; No Tenderness; No Distention, No Hepatosplenomegaly Extremities: No Clubbing, Cyanosis, - - contracted appearnce Skin: No Rash or Ulcers Neurological: - - intubated, sedatioed Laboratory Results: 10/22/18 04:31 10/22/18 04:31 INR (Anticoag Therapy) 1.22 (0.77-1.02) H 10/21/18 16:00 Total Bilirubin 0.40 mg/dL (0.2-1.0) 10/21/18 16:00 AST 39 U/L (13-39) 10/21/18 16:00 ALT 24 U/L (7-52) 10/21/18 16:00 Alkaline Phosphatase 114 U/L (34-104) H 10/21/18 16:00 B-Natriuretic Peptide 262 pg/mL (<=100) H 10/21/18 16:00 Total Protein 6.9 g/dL (6.4-8.9) 10/21/18 16:00 Albumin 3.9 g/dL (3.2-5.2) 10/21/18 16:00 Globulin 3.0 g/dL (2-4) 10/21/18 16:00 Albumin/Globulin Ratio 1.3 (1-3) 10/21/18 16:00 10/21/18 16:00 Troponin I 0.01 Diagnostic Imaging: CXR 10/21/2018: post-intubation, enlarged cardiac silohuette, R>L diffuse patchy air space opacities appears related to pulmonary edema ekg 10/21/2018: ST 127 bpm, LAE 10/21/2018 echo I reviewed High normal ormal LVEF Dilated LA Flail MV leaflet with very severe MR, appearance of ruptured chordae tendinae ( less likely vegetation) Persisent L to R atrial bowing consistent with high LAP moderate sized pericardial effusion (relatively stable from 04/2016) Assessment/Plan 1. Flail mitral valve leaflet with severe HF, intubated - It appears he probably had MVP to begin with, was infected at one point. Now it appears more mechanical complication likely ruptured chordae rather than recurrent endocarditis although would continue to follow blood cultures 2. Pericardial effusion, stable 3. Cerebral palsy, non-verbal at baseline I discussed with Dr. Steve Oliveira at bedside and neither of us think he would benefit from mitral valve surgery or mitral clip. No role for afterload reduction in a BP this low and an IABP would only be a temporary measure Continue medical management, if infection at all involved may recover enough to be extubated Prognosis poor
[2018-10-22] MEDS ORDERED: Norepinephrine 16MCG/ML IVPRE* 4,000 MCG/250 ML BAG IV SCH (16:00)
[2018-10-22] MEDS: Vancomycin(*) 750 MG in NS 0.9% 250 ML* 250 ML IVPB SCH (18:20)
[2018-10-22] MEDS: Cetirizine* 10 MG TAB PO SCH (18:38)
[2018-10-22] MEDS: Pantoprazole IV* 40 MG IV SCH (21:01)
[2018-10-22] MEDS: Lactated Ringers 1000 ML Bag* 1,000 ML IV SCH (23:18)
[2018-10-23] MEDS: Chlorhexidine MOUTHWASH 0.12%* 15 ML UDC SWISH SPIT SCH ×6 (02:51→21:21)
[2018-10-23] MEDS: Propofol* 100 ML IV SCH ×2 (04:23→19:36)
[2018-10-23] MEDS: Lactated Ringers 1000 ML Bag* 1,000 ML IV SCH (05:18)
[2018-10-23] MEDS: Cefepime(*) 0.5 GM in NS 0.9% 50 ML* 50 ML IVPB SCH (07:26)
[2018-10-23] MEDS: Pantoprazole TAB * 40 MG TAB PO SCH (07:28)
[2018-10-23] MEDS: Oseltamivir CAP* 30 MG CAP PO SCH ×2 (07:28→21:19)
[2018-10-23] MEDS: CMCS:FluvoxaMINE (NF) 50 MG TAB PO SCH (07:28)
[2018-10-23] MEDS: Multivitamins/Minerals TAB PO SCH (07:29)
[2018-10-23] MEDS: Tamsulosin CAP* 0.4 MG PO SCH (07:30)
[2018-10-23] MEDS: Cetirizine* 10 MG TAB PO SCH (16:53)
[2018-10-23] MEDS: Vancomycin(*) 750 MG in NS 0.9% 250 ML* 250 ML IVPB SCH (16:53)
--- NOTE | 2018-10-23 17:37 | PN ---
Date of Service: 10/23/18 Critical Care Services: Patient remains on the ventilator and requires vasopressor (norepinephrine) for blood pressure support. Vital Signs: Temp Pulse Resp BP SpO2 FiO2 96.8 F 67 14 143/73 98 21 Physical Exam: Gen:Somnolent but arousable Lungs:Scaterred rhonchi. Cardiac: Reg rhythm. V/ holosystolic murmur persists Extremities:Warm. No cyanosis or edema. Fluid Balance (Past 24 Hours): 10/23/18 06:59 Intake Total 3727 Output Total 627 Balance 3100 Weight 107 lb Intake: IV Fluids 3091 LR 2562 NS (0.9%) 529 IVPB 310 ABX - VANCOMYCIN 255 Cefepime 55 Medicated IV 326 CC - Norepinephrine/ 72 Levophed propofol 254 NG Tube Irrigate Amount Output: Urine Pena 627 Other: Date of Last Bowel Movement # Bowel Movements Estimated Stool Amount Studies: Sputum culture: 1+ Staph aureus Nutrition: No feeding (because of vasopressor requirement). Impression: 1. Staph in sputum: probable contaminant. I still think the pulmonary picture ( inflitrate in right lung plus hemoptysis) is explained by mitral insufficiency. 2. Probable cardiogenic shock due to wide-open mitral regurgitation Plan: Because of the severity and irreversibility of the mitral valve damage in this case, the prognosis for recovery is extremely poor, and we are trying to get the appropriate end-of-life orders to prevent continued management that is futile and will neither improve the chances of survival or improve the quality of life.
--- NOTE | 2018-10-23 20:02 | PN ---
Subjective Date of Service: 10/23/18 - CC: pt non verbal Interval History: HISTORY OF PRESENT ILLNESS: This is a 63-year-old man with intellectual disability secondary to cerebral palsy, lives at [facility] and nonverbal at baseline. Patient was recently treated for influenza. He is now admitted with respiratory failure, intubated and echocardiogram showing a flail mitral valve leaflet with very severe MR. He is critically ill. His only close relative is his mother who is reportedly suffering from dementia. The patient is unable to communicate, on propfol gtt and pressors. Intubated. Medications Active Medications: Chlorhexidine Gluconate (Peridex Mouth Wash 0.12%*) 15 ml SWISH SPIT Q4HR [facility] Last Admin: 10/23/18 16:53 Dose: 15 ml Fluvoxamine Maleate (Fluvoxamine (Nf)) 75 mg PO DAILY [facility]; Protocol Last Admin: 10/23/18 07:28 Dose: 75 mg Heparin Sodium (Porcine) (Heparin Flush Picc/Ml/Cvc(*)) 1 - 3 ml FLUSH 0600, 1800 [facility]; Protocol Last Admin: 10/23/18 17:29 Dose: Not Given Propofol (Diprivan*) 100 mls @ 5.008 mls/hr IV .(Initial Rate) [facility]; Protocol Last Admin: 10/23/18 19:36 Dose: 15.7 mls/hr Vancomycin HCl 750 mg/ Sodium (Chloride) 250 mls @ 166.667 mls/hr IVPB Q24H [facility] Last Admin: 10/23/18 16:53 Dose: 166.667 mls/hr Norepinephrine Bitartrate (Levophed 16 Mcg/Ml Premix Bag*) 4,000 mcg in 250 mls @ 7.5 mls/hr IV .INITIAL RATE [facility]; Protocol Last Admin: 10/22/18 19:14 Dose: 7.5 mls/hr Lactated Ringer's (Lactated Ringers 1000 Ml Bag*) 1,000 mls @ 5 mls/hr IV PER RATE [facility] Multivitamins/Minerals (Theragran/Minerals Tab*) 1 tab PO DAILY [facility] Last Admin: 10/23/18 07:29 Dose: 1 tab Oseltamivir Phosphate (Tamiflu Cap*) 30 mg PO 0900,2100 [facility] Stop: 10/25/18 09:01 Last Admin: 10/23/18 07:28 Dose: 30 mg Pantoprazole Sodium (Protonix Iv*) 40 mg IV Q24H [facility] Last Admin: 10/22/18 21:01 Dose: 40 mg Pharmacy Consult (Vancomycin Per Pharmacy*) 1 note FOLLOW UP .VANC PER PHARMACY [facility] Pharmacy Profile Note (Vancomycin Trough Check) 1 note FOLLOW UP 1630 ONE Stop: 10/24/18 16:31 Tamsulosin HCl (Flomax Cap*) 0.4 mg PO DAILY [facility] Last Admin: 10/23/18 07:30 Dose: 0.4 mg Objective Vital Signs: Temp Pulse Resp BP Pulse Ox 98.9 F 56 14 105/62 94 10/23/18 19:25 10/23/18 19:30 10/23/18 19:49 10/23/18 19:30 10/23/18 19:30 Oxygen Devices in Use Now: Mechanical Ventilator Appearance: chronically ill intubated, appears chronically ill. Eyes: No Scleral Icterus Ears/Nose/Mouth/Throat: Clear Oropharnyx Neck: Trachea Midline, - - uncertain jvp Respiratory: - - transmitted breath sounds from ventilator, unable to lift to listen to back, loud rhonchi likely from ventilator tubing. Cardiovascular: RRR, No Edema - rrr, 4/6 systolic murmur apex radiating to axilla and RSB., - Abdominal: NL Sounds; No Tenderness; No Distention, No Hepatosplenomegaly Extremities: No Clubbing, Cyanosis, - - deformed toes R leg noted. No edema, legs warm. Skin: No Rash or Ulcers Neurological: - - intubated, sedatioed Laboratory Results: 10/22/18 04:31 10/22/18 04:31 INR (Anticoag Therapy) 1.22 (0.77-1.02) H 10/21/18 16:00 Total Bilirubin 0.40 mg/dL (0.2-1.0) 10/21/18 16:00 AST 39 U/L (13-39) 10/21/18 16:00 ALT 24 U/L (7-52) 10/21/18 16:00 Alkaline Phosphatase 114 U/L (34-104) H 10/21/18 16:00 B-Natriuretic Peptide 262 pg/mL (<=100) H 10/21/18 16:00 Total Protein 6.9 g/dL (6.4-8.9) 10/21/18 16:00 Albumin 3.9 g/dL (3.2-5.2) 10/21/18 16:00 Globulin 3.0 g/dL (2-4) 10/21/18 16:00 Albumin/Globulin Ratio 1.3 (1-3) 10/21/18 16:00 10/21/18 16:00 Troponin I 0.01 Diagnostic Imaging: CXR 10/21/2018: R>L diffuse patchy air space opacities appears related to pulmonary edema Monitor: sinus tachycardia 10/21/2018 echo I reviewed High normal LVEF Dilated LA Flail MV leaflet with very severe MR, appearance of ruptured chordae tendinae ( less likely vegetation) Persisent L to R atrial bowing consistent with high LAP moderate sized pericardial effusion (relatively stable from 04/2016) Assessment/Plan 63 yo resident of [facility] with recent influenza now admitted with CHF and has a flail mitral leaflet with severe MR. Dr. Oliveira did not recommend referral for repair or clip. The patient continues to require pressors, support to oxygenate and maintain BP. I agree with both Dr Wilson and Dr John Oliveira that even with aggressive supportive measures this patient is unlikely to recover from this presentation. I don't have new/additional recommendations, agree with Dr Steve Oliveira's current management.
[2018-10-23] MEDS: Pantoprazole IV* 40 MG IV SCH (22:35)
[2018-10-24] MEDS: Propofol* 100 ML IV SCH ×5 (01:48→22:50)
[2018-10-24] MEDS: Chlorhexidine MOUTHWASH 0.12%* 15 ML UDC SWISH SPIT SCH ×6 (03:13→21:24)
[2018-10-24 06:23] LABS: Hematocrit 29 % (42-52); Hemoglobin 9.6 g/dl (14.0-18.0); Mean Corpuscular HGB Conc 34 g/dl (31-36); Mean Corpuscular Hemoglobin 32 pg (27-31); Mean Corpuscular Volume 95 fL (80-94); Red Blood Count 3.01 10^6/ul (4.00-5.40); Red Cell Distribution Width 17 % (10.5-15); White Blood Count 4.8 10^3/ul (3.5-10.8)
[2018-10-24 06:54] LABS: Mean Platelet Volume 14.8 fL (7.4-10.4); Platelet Count 40 10^3/ul (150-450)
[2018-10-24] MEDS: CMCS:FluvoxaMINE (NF) 50 MG TAB PO SCH (09:28)
[2018-10-24] MEDS: Oseltamivir CAP* 30 MG CAP PO SCH ×2 (09:29→21:24)
[2018-10-24] MEDS: Tamsulosin CAP* 0.4 MG PO SCH (09:29)
[2018-10-24] MEDS: Multivitamins/Minerals TAB PO SCH (09:29)
[2018-10-24] MEDS ORDERED: Vancomycin Trough Check NOTE FOLLOW UP ONE (16:30)
[2018-10-24] MEDS: Vancomycin(*) 750 MG in NS 0.9% 250 ML* 250 ML IVPB SCH (17:37)
--- NOTE | 2018-10-24 18:26 | PN ---
Date of Service: 10/24/18 Critical Care Services: Patient remains on ventilator, but is off levophed (for BP support). Vital Signs: Temp Pulse Resp BP SpO2 FiO2 97.8 F 81 15 119/72 97 21 Physical Exam: Gen:Opens eyes occasionally but soes not respond to verbal commands HEENT: Orotracheal and orogastric tubes in place. Lungs: Scattered rhonchi Cardiac: V/ holosystolic murmur heard best in axilla Extremities: No cyanosis or edema Fluid Balance (Past 24 Hours): 10/24/18 06:59 Intake Total 1942 Output Total 566 Balance 1376 Weight 103 lb Intake: IV Fluids 1147 LR 927 NS (0.9%) 220 IVPB 310 ABX - VANCOMYCIN 255 Cefepime 55 Medicated IV 485.3 CC - Norepinephrine/ 155.3 Levophed propofol 330 NG Tube Irrigate Amount Output: Urine Pena 566 Other: Date of Last Bowel Movement # Bowel Movements Estimated Stool Amount Labs: 10/24/18 10/24/18 06:00 15:30 WBC 4.8 RBC 3.01 L Hgb 9.6 L Hct 29 L MCV 95 H MCH 32 H MCHC 34 RDW 17 H Plt Count 40 L MPV 14.8 H Vancomycin Trough 16.6 NOTE: Thrombocytopenia is chronic Studies: CXR: Infiltrate in right middle lobe (basically unchanged). Sputum culture: MRSA (probable contaminant) Nutrition: Tube feedings Impression: Clinical status unchanged - major problem continues to be severe, irreversible mitral regurgitation with probable rupture of chordae tendinae. Infiltrate in right lung may represent pneumonia - MRSA in sputum probably not relevant, but we are covering with vancomycin anyway. Plan: Continue mechanical ventilation. Will try diuretic RX to ? improve chances of weaning. We are trying to get a DNR/DNI order for this patient, with help from the [facility]. All appropriate forms have been completed. It is unlikely that patient will tolerate spontaneous breathing for a prolonged period of time. Critical Care Time: 35 minutes
[2018-10-24] MEDS ORDERED: Furosemide IV* 10 MG/ML 2 ML VIAL (20 MG) IV ONE (18:42)
[2018-10-24] MEDS: Pantoprazole IV* 40 MG IV SCH (21:24)
[2018-10-25] MEDS: Chlorhexidine MOUTHWASH 0.12%* 15 ML UDC SWISH SPIT SCH ×6 (02:25→22:11)
[2018-10-25] MEDS: Propofol* 100 ML IV SCH ×3 (05:49→10:31)
[2018-10-25 06:56] LABS: Calcium 8.5 mg/dL (8.6-10.3); EGFR African American 58.5 (>60); EGFR Non-African American 48.3 (>60); Potassium 3.3 mmol/L (3.5-5.0)
[2018-10-25] MEDS: Oseltamivir CAP* 30 MG CAP PO SCH (08:52)
[2018-10-25] MEDS: Tamsulosin CAP* 0.4 MG PO SCH (08:52)
[2018-10-25] MEDS: CMCS:FluvoxaMINE (NF) 50 MG TAB PO SCH (08:52)
[2018-10-25] MEDS: Multivitamins/Minerals TAB PO SCH (08:52)
[2018-10-25] MEDS: KCL 20 MEQ/100 ML IVPREMIX* 20 MEQ/100 ML BAG IV SCH ×3 (12:27→16:20)
--- NOTE | 2018-10-25 13:59 | PN ---
Progress Note - Progress Note Date of Service: 10/25/18 SOAP: Subjective: patient unresponsive on mechanical ventilation. He does not answer any questions or express any distress. Objective: Temp Pulse Resp BP Pulse Ox 98.8 F 104 19 124/81 92 10/25/18 12:00 10/25/18 13:01 10/25/18 13:15 10/25/18 13:00 10/25/18 13:01 Physical exam: General: Did not appear to be in any distress. Eyes were open, pupils are reactive HEENT because membranes are pink and endotracheal tube in place respiratory good air entry bilaterally cardiovascular S1-S2 regularplus systolic murmur . Abdomen soft nontender bowel sounds present extremities no edema or cyanosis neurologically opens eyes spontaneously however does not follow any commands Laboratory Results - last 24 hr 10/24/18 10/25/18 15:30 06:22 Sodium 148 H Potassium 3.3 L Chloride 122 H Carbon Dioxide 19 L Anion Gap 7 BUN 37 H Creatinine 1.48 H Est GFR ( Amer) 58.5 Est GFR (Non-Af Amer) 48.3 BUN/Creatinine Ratio 25.0 H Glucose 108 H Calcium 8.5 L Vancomycin Trough 16.6 Intake and Output Last 24 Hours 10/23/18 10/24/18 10/25/18 10/26/18 06:59 06:59 06:59 06:59 Intake Total 3727 1942.3 939.7 283 Output Total 277 231 6673 490 Balance 3100 1376.3 -1715.3 -207 Weight 107 lb 12.897 oz 103 lb 9.876 oz 109 lb 2.061 oz Intake: IV Fluids 3091 1147 323.2 LR 2562 927 119.9 NS (0.9%) 529 220 203.3 IVPB 310 310 255 ABX - VANCOMYCIN 255 255 255 Cefepime 55 55 Medicated IV 326 485.3 361.5 CC - Norepinephrine/ 72 155.3 16.5 Levophed propofol 254 330 345 Tube Feeding 283 Output: Pena 998 023 0328 490 Straight Cath 340 chest x-ray 10/25/2018 persistent right lower lobe infiltrate with hyperinflated lungs Assessment/ Plan: Patient is a 63-year-old Severe disability secondary to cerebral palsy,, baseline is nonverbal. Patient was recently treated for influenza and subsequently has MRSA in his sputum. He is currently on vancomycin. Patient was admitted to the hospital with respiratory failure and intubated shortly after. Echocardiogram revealed mitral valve dysfunction with severe MR.. He was on levophed which has been titrated down. Cardiology assessment has been a patient will have poor outcome with aggressive treatment for mitral valve regurg. Patient currently does not havea healthcare proxy, next of kin is his mother was also reported to suffer from severe dementia. social work has been working on trying to establish healthcare proxy. we will continue with supportive care in the ICU with ventilatory support and hemodynamic support. Continue antibiotic therapy with vancomycin for MRSA pneumonia. Continue tube feeds. Continue DVT GI prophylaxis. Currently full code.
[2018-10-25] MEDS ORDERED: Artificial Tear OPHTH.OINT* 3.5 GM BOTH EYES PRN (15:37)
[2018-10-25] MEDS: Vancomycin(*) 750 MG in NS 0.9% 250 ML* 250 ML IVPB SCH (16:20)
[2018-10-25] MEDS: Carboxymethylcellulose/Glyceri 10 ML OPHTH.GEL lubricant eye gel BOTH EYES PRN (17:57)
[2018-10-25] MEDS ORDERED: Metoprolol Tartrate TAB* 25 MG PO SCH (21:00)
[2018-10-25] MEDS: Pantoprazole IV* 40 MG IV SCH (22:11)
[2018-10-26] MEDS: Chlorhexidine MOUTHWASH 0.12%* 15 ML UDC SWISH SPIT SCH ×6 (03:10→21:56)
[2018-10-26] MEDS: Carboxymethylcellulose/Glyceri 10 ML OPHTH.GEL lubricant eye gel BOTH EYES PRN ×3 (05:44→17:09)
[2018-10-26 07:06] LABS: Hematocrit 31 % (42-52); Hemoglobin 10.4 g/dl (14.0-18.0); Mean Corpuscular HGB Conc 33 g/dl (31-36); Mean Corpuscular Hemoglobin 32 pg (27-31); Mean Corpuscular Volume 95 fL (80-94); Red Blood Count 3.29 10^6/ul (4.00-5.40); Red Cell Distribution Width 17 % (10.5-15); White Blood Count 4.6 10^3/ul (3.5-10.8)
[2018-10-26 07:12] LABS: BUN/Creatinine Ratio 27.2 (8-20); Calcium 8.2 mg/dL (8.6-10.3); EGFR African American 64.5 (>60); EGFR Non-African American 53.3 (>60)
--- NOTE | 2018-10-26 07:50 | PN ---
Date of Service: 10/26/18 Critical Care Services: No sig change overnight sedation held and the patient did open eyes and moved his upper ext spontaneously appeared to be in distress on CPAP 01/03 did well with TV 450-500 Vital Signs: Temp Pulse Resp BP SpO2 FiO2 99.1 F 83 15 104/65 93 21 10/26/18 06:25 10/26/18 07:01 10/26/18 07:00 10/26/18 07:00 10/26/18 07:01 10/26 05:48 Physical Exam: Gen: unresponsive and does not follow commands HEENT: MM pink and anectric Lungs: clear Cardiac: S1 S2 rrr Abdomen: soft + bs Extremities: no edema Neuro: no following command off sedation moves all ext Fluid Balance (Past 24 Hours): I= O= Net Intake & Output 10/24/18 10/25/18 10/26/18 10/27/18 06:59 06:59 06:59 06:59 Intake Total 1942.3 939.7 2910.1 Output Total 566 2655 1385 60 Balance 1376.3 -1715.3 1525.1 -60 Weight 103 lb 9.876 oz 109 lb 2.061 oz 110 lb 7.225 oz Intake: IV Fluids 1147 323.2 401 ABX - VANCOMYCIN 280 LR 927 119.9 NS (0.9%) 220 203.3 121 IVPB 310 255 ABX - VANCOMYCIN 255 255 Cefepime 55 Medicated IV 485.3 361.5 363.1 CC - Norepinephrine/ 155.3 16.5 29.8 Levophed potassium 183.3 propofol 330 345 150 Tube Feeding 1146 Tube Feeding Flush Amount 900 NG Tube Irrigate Amount 100 Output: Pena 566 2315 1385 60 Straight Cath 340 Labs: Laboratory Results - last 24 hr 10/26/18 10/26/18 05:53 05:53 WBC 4.6 RBC 3.29 L Hgb 10.4 L Hct 31 L MCV 95 H MCH 32 H MCHC 33 RDW 17 H Sodium 145 Potassium 4.0 Chloride 120 H Carbon Dioxide 19 L Anion Gap 6 BUN 37 H Creatinine 1.36 H Est GFR ( Amer) 64.5 Est GFR (Non-Af Amer) 53.3 BUN/Creatinine Ratio 27.2 H Glucose 114 H Calcium 8.2 L Studies: CRX rt lower lob pneumonia Nutrition: NG tube held due to constipation and ileus on abd xray Impression: patient is a 63-year-old male with history of cerebral palsy, admitted on 2018 with complaints of shortness of breath. During the hospitalization patient was intubated and placed on mechanical ventilatio, chest x-ray consistent with pneumonia and started on antibiotics with Zosyn and vancomycin. subsequently echocardiogram reveals mitral valve dysfunction with flail leaflet. Cardiology has evaluated the patient, do not believe the patient is a candidate for intervention to repair the valve. 1.pneumonia Influenza A Hypotension Thrombocytopenia Respiratory will con't to attempt to wean off the vent con't treatment with vanco for pneumonia Cardiovascular hypotension on levophed endocarditis with MR con't vanco No signs of Pul edema Neurologic GI Renal DVT Prophylaxis Has Been Held Due thrombocytopenia Disposition Plan: Critical Care Time:
[2018-10-26] MEDS: Tamsulosin CAP* 0.4 MG PO SCH (08:04)
[2018-10-26] MEDS: CMCS:FluvoxaMINE (NF) 50 MG TAB PO SCH (08:04)
[2018-10-26] MEDS: Multivitamins/Minerals TAB PO SCH (08:04)
[2018-10-26 08:33] LABS: Albumin 2.6 g/dL (3.2-5.2); Globulin 2.5 g/dL (2-4); Indirect Bilirubin 0.3 mg/dL (0.3-1.0); Total Bilirubin 0.4 mg/dL (0.2-1.0); Total Protein 5.1 g/dL (6.4-8.9)
[2018-10-26 08:57] LABS: ABS Basophils 0 10^3/ul (0-0.2); ABS Eosinophils 0 10^3/ul (0-0.6); ABS Lymphocytes 0.7 10^3/ul (1.0-4.8); ABS Monocytes 0.5 10^3/ul (0-0.8); ABS Neutrophils 3.3 10^3/ul (1.5-7.7); ABS Nucleated RBC 0.1 10^3/ul; Eosinophil % 0.9 %; Lymphocyte % 15.9 %; Mean Platelet Volume 12.1 fL (7.4-10.4); Nucleated Red Blood Cells % 1.4; Platelet Count 49 10^3/ul (150-450)
[2018-10-26] MEDS: Docusate LIQ* 100 MG/10 ML UDC G TUBE SCH ×2 (13:28→21:56)
[2018-10-26] MEDS: Lactated Ringers 1000 ML Bag* 1,000 ML IV SCH (14:24)
[2018-10-26 14:43] LABS: Magnesium 1.9 mg/dL (1.9-2.7); Phosphorus 3.2 mg/dL (2.5-5.0)
[2018-10-26] MEDS: Vancomycin(*) 750 MG in NS 0.9% 250 ML* 250 ML IVPB SCH (16:57)
[2018-10-26] MEDS: Alteplase (CATHFLO)* 2 MG VIAL IV ONE ×2 (17:43→17:49)
[2018-10-26] MEDS: Pantoprazole IV* 40 MG IV SCH (21:56)
[2018-10-26] MEDS: Propofol* 100 ML IV SCH (22:00)
[2018-10-27] MEDS: Chlorhexidine MOUTHWASH 0.12%* 15 ML UDC SWISH SPIT SCH ×6 (02:52→23:13)
[2018-10-27] MEDS: Lactated Ringers 1000 ML Bag* 1,000 ML IV SCH ×2 (02:55→14:38)
[2018-10-27] MEDS: Propofol* 100 ML IV SCH (06:21)
[2018-10-27 06:39] LABS: Hematocrit 28 % (42-52); Hemoglobin 9.4 g/dl (14.0-18.0); Mean Corpuscular HGB Conc 33 g/dl (31-36); Mean Corpuscular Hemoglobin 32 pg (27-31); Mean Corpuscular Volume 95 fL (80-94); Red Blood Count 2.98 10^6/ul (4.00-5.40); Red Cell Distribution Width 17 % (10.5-15); White Blood Count 4.6 10^3/ul (3.5-10.8)
[2018-10-27 07:08] LABS: BUN/Creatinine Ratio 30.2 (8-20); Calcium 8.2 mg/dL (8.6-10.3); EGFR African American 70.4 (>60); EGFR Non-African American 58.2 (>60); Potassium 4.5 mmol/L (3.5-5.0)
[2018-10-27 07:29] LABS: Platelet Count 52 10^3/ul (150-450)
[2018-10-27 07:31] LABS: ABS Basophils 0 10^3/ul (0-0.2); ABS Eosinophils 0 10^3/ul (0-0.6); ABS Neutrophils 3.1 10^3/ul (1.5-7.7); ABS Neutrophils 3.4 10^3/ul (1.5-7.7); Lymphocytes % 15 %; Monocytes % 11 %; Neutrophil % 73 %; Nucleated Red Blood Cells/100 1 (0-0); Polychromasia 1+
[2018-10-27] MEDS: Docusate LIQ* 100 MG/10 ML UDC G TUBE SCH ×2 (08:56→12:38)
[2018-10-27] MEDS: Multivitamins/Minerals TAB PO SCH (08:56)
[2018-10-27] MEDS: CMCS:FluvoxaMINE (NF) 50 MG TAB PO SCH (08:57)
[2018-10-27] MEDS ORDERED: Senna TAB G TUBE SCH (09:00)
--- NOTE | 2018-10-27 12:37 | PN ---
Date of Service: 10/27/18 Critical Care Services: No significant climate change risk assessor night Vital Signs: Temp Pulse Resp BP SpO2 FiO2 98.1 F 94 16 125/80 97 30 10/27/18 03:50 10/27/18 12:01 10/27/18 11:00 10/27/18 12:00 10/27/18 12:01 10/27 08:00 Physical Exam: Gen: on sedation and not responsive on sedation HEENT: MM pink Lungs: good air entry b/l Cardiac: s1 s2 +m Abdomen: soft NT ND bowel sounds deminished Extremities: No edema Neuro: sedated Fluid Balance (Past 24 Hours): I= O= Net Intake & Output 10/25/18 10/26/18 10/27/18 10/28/18 06:59 06:59 06:59 06:59 Intake Total 939.7 2910.1 1760 Output Total 2655 1385 1337 185 Balance -1715.3 1525.1 423 -185 Weight 109 lb 2.061 oz 110 lb 7.225 oz 111 lb 11.629 oz Intake: IV Fluids 323.2 401 933 ABX - VANCOMYCIN 280 260 LR 119.9 609 NS (0.9%) 203.3 121 64 IVPB 255 649 ABX - VANCOMYCIN 255 NS (0.9%) 649 Medicated IV 361.5 363.1 178 CC - Norepinephrine/ 16.5 29.8 Levophed potassium 183.3 propofol 345 150 178 Tube Feeding 1146 Tube Feeding Flush Amount 900 NG Tube Irrigate Amount 100 Output: Pena 2315 1385 1337 185 Straight Cath 340 Labs: Laboratory Results - last 24 hr 10/26/18 10/27/18 10/27/18 13:53 06:13 06:13 WBC 4.6 RBC 2.98 L Hgb 9.4 L Hct 28 L MCV 95 H MCH 32 H MCHC 33 RDW 17 H Plt Count 52 L MPV 12.0 H Neut % (Auto) Not Reportable Lymph % (Auto) Not Reportable Hooker % (Auto) Not Reportable Eos % (Auto) Not Reportable Baso % (Auto) Not Reportable Absolute Neuts (auto) 3.1 Absolute Lymphs (auto) Not Reportable Absolute Monos (auto) Not Reportable Absolute Eos (auto) Not Reportable Absolute Basos (auto) Not Reportable Absolute Nucleated RBC Not Reportable Neutrophils % 73 Lymphocytes % 15 Monocytes % 11 Eosinophils % 0 Basophils % 1 Nucleated RBC % Not Reportable Abs Neuts (Manual) 3.4 Abs Lymphs (Manual) 0.7 L Abs Monocytes (Manual) 0.5 Absolute Eos (Manual) 0 Abs Basophils (Manual) 0 Nucleated RBCs/100 WBC 1 H Normal RBC Morphology Not Reportable Polychromasia 1+ Hypochromasia 1+ Anisocytosis 1+ Sodium 147 H Potassium 4.5 Chloride 123 H Carbon Dioxide 19 L Anion Gap 5 BUN 38 H Creatinine 1.26 H Est GFR ( Amer) 70.4 Est GFR (Non-Af Amer) 58.2 BUN/Creatinine Ratio 30.2 H Glucose 75 Calcium 8.2 L Phosphorus 3.2 Magnesium 1.9 Studies: CXR no sig change Abd XR dilated bowel Nutrition: tube feeds Impression: Patient is a 63-year-old male with history of cerebral palsy, admitted on 2018 with complaints of shortness of breath. During the hospitalization patient was intubated and placed on mechanical ventilatio, chest x-ray consistent with pneumonia and started on antibiotics with Zosyn and vancomycin. subsequently echocardiogram reveals mitral valve dysfunction with flail leaflet. Cardiology has evaluated the patient, do not believe the patient is a candidate for intervention to repair the valve. 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 social work aware and working on a family meeting Plan: Critical Care Time: 40
[2018-10-27] MEDS ORDERED: Iodixanol* (CONTRAST) 320 MG/ML 100 ML SDV IV ONE (14:35)
--- NOTE | 2018-10-27 17:03 | PN ---
Progress Note - Progress Note Date of Service: 10/27/18 Note: Surgery Progress Note Please see full dictated H&P by JENNY Beck but briefly, patient is a 63 yo M with a history of cerebral palsy, [facility] who was readmitted on 10/21 for respiratory failure and PNA and had to be emergently intubated at that time. He has since been found to have endocarditis and is on broad spectrum abx. Surgery was consulted because of distended colon on AXR x 2 days and decreased BM. He underwent a CT scan today , final read pending, but on review of images it appears that small bowel is normal in diameter and the colon is distended with distal colon filled with stool. He also has a large splenic mass. On exam he has a distended, tympanic abdomen that is non tender. He has presence of BM now. We recommend an aggressive bowel regimen and resuming tube feeds when he resumes having normal BM. Please feel free to call with any further questions. Surgery will sign off at this time.
[2018-10-27] MEDS: Vancomycin(*) 750 MG in NS 0.9% 250 ML* 250 ML IVPB SCH (17:37)
--- NOTE | 2018-10-27 19:55 | CONS ---
SURGICAL CONSULT NOTE: DATE OF CONSULT: 10/27/18 ATTENDING SURGEON: Dr. Leeann Linares. CHIEF COMPLAINT: Ileus. HISTORY OF PRESENT ILLNESS: We were asked to consult on this patient for colonic ileus. He is a long-term resident at the [facility] and was admitted recently for what appeared initially to be influenza from 10/19/18 to 10/20/18. However, he was admitted again on 10/21/18 requiring intubation for what appeared to be a significant right middle lobe pneumonia. See admission history and physical from Dr. Mcclain for details. The patient has remained on ventilator since that time and apparently also has been diagnosed with endocarditis for which he is receiving antibiotic therapy. He was started on tube feedings via a nasogastric tube on 10/24/18. Apparently, because of lack of bowel activity, plain films were taken yesterday and today, and we were called regarding concern for both the lack of bowel activity as well as the significant colonic distention noted on the plain films. Since that time, CT scan of the abdomen and pelvis with oral contrast has been performed and reviewed directly by myself as well as by my attending, Dr. Linares. PHYSICAL EXAM: Temperature 99.2 with a T-max of 100.7, blood pressure 100/65, pulse 71, respirations 14. General: The patient is on a ventilator. He is apparently nonverbal at baseline. He appears comfortable. Exam is otherwise limited to abdomen and rectum. He is moderately distended and tympanitic. There are a few bowel sounds present. He is soft and with no apparent tenderness to palpation. There are no masses palpable (see below for CT scan as well). Rectal exam is notable for some stool outside of the rectum and a little or no stool within the rectal vault. DIAGNOSTIC STUDIES: CT scan shows bilateral lower lobe infiltrates as well as small bilateral pleural effusions, a small amount of ascites, a large splenic mass, which has increased in size from prior scan. Also noted was some thickening of the wall of rectum consistent with proctitis, though this is an unchanged finding from prior study. Contrast is present throughout the small bowel, which is nondistended and well into the colon, at least ascending and transverse colon. The colon appears to be fairly redundant with some dilation of the sigmoid colon, though no apparent obstruction point. There is some stool remaining in the distal descending colon. IMPRESSION AND PLAN: Colonic distention, in part likely to be chronic particularly in view of his plain films, both recent and past (2016). He does not appear to be obstructed. He may need some additional bowel regimen for the distal colonic stool. Tube feeds may be resumed. Per the weatherization administrator, there is also a planned family discussion in terms of goals of treatment. At this point, there are no surgical indications and we will be available to see the patient again on a p.r.n. basis. JENNY ALANIZ [id number]/[facility] #: [id number]
[2018-10-27] MEDS: Pantoprazole IV* 40 MG IV SCH (23:13)
[2018-10-28] MEDS: Chlorhexidine MOUTHWASH 0.12%* 15 ML UDC SWISH SPIT SCH ×3 (02:15→08:46)
[2018-10-28] MEDS: Lactated Ringers 1000 ML Bag* 1,000 ML IV SCH (05:42)
[2018-10-28] MEDS: Propofol* 100 ML IV SCH (05:47)
[2018-10-28 06:04] LABS: Hematocrit 31 % (42-52); Hemoglobin 10.2 g/dl (14.0-18.0); Mean Corpuscular HGB Conc 33 g/dl (31-36); Mean Corpuscular Hemoglobin 31 pg (27-31); Mean Corpuscular Volume 96 fL (80-94); Mean Platelet Volume 11.7 fL (7.4-10.4); Platelet Count 74 10^3/ul (150-450); Red Blood Count 3.24 10^6/ul (4.00-5.40); Red Cell Distribution Width 17 % (10.5-15); White Blood Count 5.4 10^3/ul (3.5-10.8)
[2018-10-28 06:22] LABS: ABS Basophils 0 10^3/ul (0-0.2); ABS Eosinophils 0.1 10^3/ul (0-0.6); ABS Lymphocytes 0.6 10^3/ul (1.0-4.8); ABS Monocytes 0.9 10^3/ul (0-0.8); ABS Neutrophils 3.8 10^3/ul (1.5-7.7); ABS Nucleated RBC 0 10^3/ul; Eosinophil % 2.1 %; Lymphocyte % 10.7 %; Nucleated Red Blood Cells % 0.2
[2018-10-28 06:24] LABS: Calcium 8.6 mg/dL (8.6-10.3); EGFR African American 70.4 (>60); EGFR Non-African American 58.2 (>60); Potassium 4.4 mmol/L (3.5-5.0)
[2018-10-28] MEDS: CMCS:FluvoxaMINE (NF) 50 MG TAB PO SCH (08:46)
[2018-10-28] MEDS: Multivitamins/Minerals TAB PO SCH (08:46)
--- NOTE | 2018-10-28 14:12 | PN ---
Date of Service: 10/28/18 Critical Care Services: pt extubated in am and doing well Vital Signs: Temp Pulse Resp BP SpO2 FiO2 99.6 F 93 16 132/77 94 25 10/28/18 07:28 10/28/18 13:01 10/28/18 13:01 10/28/18 13:00 10/28/18 13:01 10/28 08:00 Physical Exam: Gen: awake HEENT: mm pink Lungs: good air entry Cardiac: s 1s2 +M Abdomen: no edema Fluid Balance (Past 24 Hours): I= O= Net Intake & Output 10/26/18 10/27/18 10/28/18 10/29/18 06:59 06:59 06:59 06:59 Intake Total 2910.1 1760 2694 180 Output Total 1385 1337 1610 455 Balance 1525.1 423 1084 -275 Weight 110 lb 7.225 oz 111 lb 11.629 oz 111 lb 5.335 oz Intake: IV Fluids 290 539 9789 ABX - VANCOMYCIN 280 260 285 LR 609 1721 NS (0.9%) 121 64 IVPB 649 NS (0.9%) 649 Medicated IV 363.1 178 188 CC - Norepinephrine/ 29.8 Levophed potassium 183.3 propofol 150 178 188 Oral 0 180 Tube Feeding 1146 Tube Feeding Flush Amount 900 500 NG Tube Irrigate Amount 100 Output: Pena 1385 1337 1610 455 ADLs: Meal Record Start: 10/21/18 17: 46 Freq: 09,13,18 Status: Active Protocol: Created 10/21/18 17:46 System (Rec: 10/21/18 17:46 System ICU-M33) Document 10/22/18 09:00 RAP2677 (Rec: 10/22/18 10:14 FYW3685 ICU-C15) Document 10/22/18 13:00 AUS1990 (Rec: 10/22/18 13:08 CSF3082 ICU-C15) Document 10/22/18 18:00 JHT2882 (Rec: 10/22/18 18:16 RWA7558 ICU-C15) Document 10/23/18 08:14 MOK1844 (Rec: 10/23/18 08:14 ART5681 ICU-C16) Document 10/23/18 12:53 THP5308 (Rec: 10/23/18 12:53 ZEQ1819 ICU-C16) Document 10/23/18 17:07 EKU6767 (Rec: 10/23/18 17:07 SKX1908 ICU-C16) Document 10/24/18 18:00 XYI6890 (Rec: 10/24/18 19:06 ADR4782 ICU-M33) Document 10/26/18 09:00 OKX1617 (Rec: 10/26/18 09:03 ANY9187 ICU-C16) Document 10/26/18 12:50 WHY8303 (Rec: 10/26/18 12:50 DNJ6430 ICU-C16) Document 10/26/18 17:52 SEW7747 (Rec: 10/26/18 17:52 XEO6423 ICU-C16) Document 10/27/18 09:00 DSD6430 (Rec: 10/27/18 09:20 RUV3934 ICU-C15) Document 10/27/18 13:00 ISE0540 (Rec: 10/27/18 14:28 PJL0821 ICU-C15) Document 10/27/18 18:00 QKF7628 (Rec: 10/27/18 18:06 MGU2150 ICU-C15) Document 10/28/18 09:00 RZP9539 (Rec: 10/28/18 09:18 YEH6770 ICU-C16) Document 10/28/18 13:00 SYO6411 (Rec: 10/28/18 13:53 RQC5702 ICU-C16) Intake and Output Start: 10/21/18 15: 27 Freq: 06,14,2200 Status: Active Protocol: Created 10/21/18 15:27 System (Rec: 10/21/18 15:27 System ED-C24) Document 10/28/18 12:05 OXI6843 (Rec: 10/28/18 12:05 MSQ9352 ICU-C16) Intake and Output Start: 10/21/18 17: 46 Freq: Q1HR Status: Inactive Protocol: Created 10/21/18 17:46 System (Rec: 10/21/18 17:46 System ICU-M33) Document 10/21/18 19:00 MPC6536 (Rec: 10/21/18 20:31 SJK1062 ICU-C16) Document 10/21/18 20:00 STD6053 (Rec: 10/21/18 23:52 ICS8923 ICU-C16) Document 10/21/18 21:00 FIA2443 (Rec: 10/21/18 23:52 XFR6460 ICU-C16) Document 10/21/18 22:00 XHY4527 (Rec: 10/21/18 23:52 FCM2930 ICU-C16) Document 10/21/18 23:00 EAE3511 (Rec: 10/21/18 23:52 XYX2201 ICU-C16) Document 10/22/18 00:00 VFX9517 (Rec: 10/22/18 00:34 JPZ3297 ICU-C16) Document 10/22/18 02:00 RZO8065 (Rec: 10/22/18 02:47 PNK6003 ICU-C16) Document 10/22/18 03:00 KGD2059 (Rec: 10/22/18 05:10 PDV5722 ICU-M33) Document 10/22/18 04:00 LPK8876 (Rec: 10/22/18 05:10 DPU9546 ICU-M33) Document 10/22/18 05:00 MYA9671 (Rec: 10/22/18 05:10 LGB4115 ICU-M33) Document 10/22/18 05:55 ZAA0872 (Rec: 10/22/18 05:57 TXE9402 ICU-M33) Document 10/22/18 07:49 ZVS6045 (Rec: 10/22/18 07:49 JJF6656 ICU-M33) Document 10/22/18 10:49 OTO7740 (Rec: 10/22/18 10:49 TMW9352 ICU-M33) Document 10/22/18 13:34 SLF8179 (Rec: 10/22/18 13:34 AOF1108 ICU-C15) Document 10/22/18 15:00 QMW8254 (Rec: 10/22/18 15:16 DVM5266 ICU-M33) Document 10/22/18 16:55 QXU4962 (Rec: 10/22/18 16:55 TRY2545 ICU-C15) Document 10/22/18 18:19 MGU2148 (Rec: 10/22/18 18:19 GTX0105 ICU-M33) Document 10/22/18 19:00 DTN9605 (Rec: 10/22/18 19:34 CJU9640 ICU-M33) Document 10/22/18 20:00 IDM3304 (Rec: 10/22/18 20:36 ZIT6336 ICU-C10) Document 10/22/18 21:00 BAU2564 (Rec: 10/22/18 21:19 HXG9779 ICU-C10) Document 10/22/18 21:53 NKK8967 (Rec: 10/22/18 21:56 LKU5745 ICU-M33) Document 10/22/18 23:00 CWP2014 (Rec: 10/22/18 23:19 MIH1968 ICU-M33) Document 10/22/18 23:51 TCA7076 (Rec: 10/23/18 00:07 EAP0419 ICU-C10) Document 10/23/18 01:00 PLQ7012 (Rec: 10/23/18 01:11 YQU5412 ICU-C10) Document 10/23/18 02:00 XBA7793 (Rec: 10/23/18 02:50 ROO7797 ICU-M33) Document 10/23/18 03:00 SUY2407 (Rec: 10/23/18 03:14 TZJ2711 ICU-C10) Document 10/23/18 04:00 ENK5489 (Rec: 10/23/18 04:53 VES1270 ICU-C10) Document 10/23/18 05:00 SVW9556 (Rec: 10/23/18 05:03 IBN0772 ICU-C10) Document 10/23/18 06:00 CIV5626 (Rec: 10/23/18 06:05 DQF5734 ICU-M33) Document 10/23/18 07:43 RVO4781 (Rec: 10/23/18 07:43 WTV1128 ICU-M33) Document 10/23/18 10:32 EDJ6219 (Rec: 10/23/18 10:32 CJN5009 ICU-C16) Document 10/23/18 12:49 QQB9446 (Rec: 10/23/18 12:50 GDQ7959 ICU-M33) Document 10/23/18 14:26 EWE9512 (Rec: 10/23/18 14:26 IYG0861 ICU-C16) Document 10/23/18 16:43 YMQ5728 (Rec: 10/23/18 16:43 YCL3435 ICU-M33) Document 10/23/18 17:05 QEE2189 (Rec: 10/23/18 17:05 PDM0545 ICU-C16) Document 10/23/18 18:05 AUB6019 (Rec: 10/23/18 18:05 RPL8769 ICU-C16) Document 10/23/18 19:00 MDM0742 (Rec: 10/23/18 19:42 EOK3442 ICU-C16) Document 10/23/18 20:00 ESY5096 (Rec: 10/23/18 21:24 YUK6402 ICU-C16) Document 10/23/18 21:00 VAU4305 (Rec: 10/23/18 21:24 LRZ3284 ICU-C16) Document 10/23/18 22:00 TUP1812 (Rec: 10/23/18 22:59 AQH3664 ICU-C25) Document 10/23/18 23:00 DAW8614 (Rec: 10/23/18 23:12 WKE6760 ICU-C16) Document 10/24/18 01:00 PTK1527 (Rec: 10/24/18 01:06 UKJ7391 ICU-M33) Document 10/24/18 03:00 OIF1596 (Rec: 10/24/18 03:25 PGY9463 ICU-L03) Document 10/24/18 04:00 YQJ7781 (Rec: 10/24/18 04:21 RYE9215 ICU-L03) Document 10/24/18 06:00 HDA4395 (Rec: 10/24/18 06:14 QNQ4368 ICU-M33) Document 10/24/18 07:00 TZV3045 (Rec: 10/24/18 10:11 PDU7998 ICU-M33) Document 10/24/18 08:00 CGD7010 (Rec: 10/24/18 10:11 AGP3466 ICU-M33) Document 10/24/18 09:00 VNG3940 (Rec: 10/24/18 10:11 OTK3428 ICU-M33) Document 10/24/18 10:00 AHV0190 (Rec: 10/24/18 10:11 SQR9514 ICU-M33) Document 10/24/18 11:05 OWR0783 (Rec: 10/24/18 11:06 ERV9061 ICU-M33) Document 10/24/18 12:20 VMB1779 (Rec: 10/24/18 12:28 PYP5284 ICU-M33) Document 10/24/18 13:05 CCI2814 (Rec: 10/24/18 13:05 KFH8351 ICU-M33) Document 10/24/18 14:00 JTI8834 (Rec: 10/24/18 15:33 NUD8457 ICU-M33) Document 10/24/18 15:00 JSU9096 (Rec: 10/24/18 15:33 IDU7132 ICU-M33) Document 10/24/18 16:00 CSB2431 (Rec: 10/24/18 17:38 FZO4578 ICU-M33) Document 10/24/18 17:00 JNS9222 (Rec: 10/24/18 17:38 SBA9132 ICU-M33) Document 10/24/18 18:00 NRS8009 (Rec: 10/24/18 19:08 MCP4427 ICU-M33) Document 10/24/18 19:00 JTC3129 (Rec: 10/24/18 19:08 SBK3179 ICU-M33) Document 10/24/18 20:00 SXE4432 (Rec: 10/24/18 20:53 SLN8151 ICU-C10) Document 10/24/18 21:00 UVU8872 (Rec: 10/24/18 22:01 ODX5671 ICU-C10) Document 10/24/18 22:00 HIK2020 (Rec: 10/24/18 22:01 GQC4516 ICU-C10) Document 10/24/18 23:00 MZE4178 (Rec: 10/24/18 23:50 GFZ2498 ICU-C10) Document 10/25/18 00:00 JUU3751 (Rec: 10/25/18 00:51 PZV3612 ICU-C10) Document 10/25/18 01:00 NGB1357 (Rec: 10/25/18 01:18 CYH6901 ICU-C10) Document 10/25/18 02:00 IXE8456 (Rec: 10/25/18 02:10 TOH2729 ICU-C10) Document 10/25/18 03:00 NUG0676 (Rec: 10/25/18 03:00 PJI0027 ICU-C10) Document 10/25/18 04:00 SHM0887 (Rec: 10/25/18 04:21 TOK6260 ICU-C10) Document 10/25/18 05:00 ESD0640 (Rec: 10/25/18 05:10 ZRX0909 ICU-C10) Document 10/25/18 06:00 ZIS2204 (Rec: 10/25/18 06:34 YCC3265 ICU-C10) Document 10/25/18 07:00 WFO1293 (Rec: 10/25/18 08:19 BSW7503 ICU-L03) Document 10/25/18 08:00 AAJ2855 (Rec: 10/25/18 08:19 FER1399 ICU-L03) Document 10/25/18 09:05 LNQ8368 (Rec: 10/25/18 09:05 TZJ0411 ICU-M33) Document 10/25/18 10:15 SMF2630 (Rec: 10/25/18 10:31 PAU7951 ICU-M33) Document 10/25/18 10:51 FVS1013 (Rec: 10/25/18 10:51 SUI2514 ICU-M33) Document 10/25/18 12:30 GIB2302 (Rec: 10/25/18 12:40 EZU1747 ICU-M33) Document 10/25/18 13:15 YEQ3629 (Rec: 10/25/18 13:22 WAC3852 ICU-M33) Document 10/25/18 13:52 REK6977 (Rec: 10/25/18 13:54 PIX4072 ICU-M33) Document 10/25/18 15:03 VWB5724 (Rec: 10/25/18 15:04 STE7440 ICU-M33) Document 10/25/18 16:21 MXW6534 (Rec: 10/25/18 16:22 KFI2966 ICU-M33) Document 10/25/18 17:18 DBC8327 (Rec: 10/25/18 17:18 JGH9822 ICU-M33) Document 10/25/18 18:03 HEL9493 (Rec: 10/25/18 18:04 KME5086 ICU-M33) Document 10/25/18 19:09 NNO9864 (Rec: 10/25/18 19:09 YYS8657 ICU-M33) Document 10/25/18 22:21 EWD8110 (Rec: 10/25/18 22:22 GNO9998 ICU-M33) Document 10/25/18 22:22 GHL9231 (Rec: 10/25/18 22:22 UZC8103 ICU-M33) Document 10/25/18 22:24 RCB3115 (Rec: 10/25/18 22:24 HPS2086 ICU-M33) Document 10/26/18 01:36 EKH8832 (Rec: 10/26/18 01:36 EFE1568 ICU-M33) Document 10/26/18 03:12 PDW5192 (Rec: 10/26/18 03:12 RYK5953 ICU-M33) Document 10/26/18 06:24 XDT3102 (Rec: 10/26/18 06:25 ZTC8205 ICU-M33) Document 10/26/18 07:00 DUJ2095 (Rec: 10/26/18 07:12 KXH3723 ICU-C16) Document 10/26/18 07:45 JKD1633 (Rec: 10/26/18 07:46 DXN0657 ICU-M33) Document 10/26/18 09:08 MSV6782 (Rec: 10/26/18 09:08 IDR0190 ICU-C16) Document 10/26/18 09:53 OMS9803 (Rec: 10/26/18 09:53 HKS6788 ICU-M33) Document 10/26/18 10:46 WVB9573 (Rec: 10/26/18 10:46 LNH3964 ICU-C16) Document 10/26/18 12:00 GAO0618 (Rec: 10/26/18 12:06 TGB4375 ICU-M33) Document 10/26/18 12:55 QBW2649 (Rec: 10/26/18 12:55 TXS7135 ICU-M33) Document 10/26/18 13:59 PET2255 (Rec: 10/26/18 13:59 VMK6096 ICU-M33) Document 10/26/18 15:00 SZJ7208 (Rec: 10/26/18 15:10 YEF5373 ICU-C16) Document 10/26/18 15:53 ZOX0832 (Rec: 10/26/18 15:53 CYZ6935 ICU-M33) Document 10/26/18 16:56 XGJ6443 (Rec: 10/26/18 16:56 PKL2629 ICU-M33) Document 10/26/18 17:50 UGP5562 (Rec: 10/26/18 17:50 PWR7256 ICU-M33) Document 10/26/18 19:51 NSA6929 (Rec: 10/26/18 19:51 UYP6777 ICU-M30) Document 10/26/18 21:56 GRT3445 (Rec: 10/26/18 21:56 NHL8414 ICU-M33) Document 10/27/18 00:00 LBX2238 (Rec: 10/27/18 00:56 LQX5498 ICU-M33) Document 10/27/18 02:52 SAA6572 (Rec: 10/27/18 02:52 QBE9042 ICU-M33) Document 10/27/18 04:55 NWH3576 (Rec: 10/27/18 04:55 LHR3296 ICU-C16) Document 10/27/18 06:15 LLK7948 (Rec: 10/27/18 06:15 XAO3166 ICU-M33) Document 10/27/18 07:00 PZQ7193 (Rec: 10/27/18 07:53 MAF5331 ICU-C15) Document 10/27/18 08:00 JCV1460 (Rec: 10/27/18 09:06 VPL2863 ICU-M33) Document 10/27/18 09:00 NJG4711 (Rec: 10/27/18 09:06 CJR5858 ICU-M33) Document 10/27/18 10:00 UGD0589 (Rec: 10/27/18 12:38 SAA8667 ICU-C15) Document 10/27/18 11:00 YIO8098 (Rec: 10/27/18 12:38 IEM2460 ICU-C15) Document 10/27/18 12:00 FOI4254 (Rec: 10/27/18 12:38 NZK3181 ICU-C15) Document 10/27/18 13:00 DNV2401 (Rec: 10/27/18 14:28 WSQ9000 ICU-C15) Document 10/27/18 14:00 HZN1414 (Rec: 10/27/18 14:40 MDT6792 ICU-M33) Document 10/27/18 15:00 SWD8895 (Rec: 10/27/18 15:10 YJL5339 ICU-C15) Document 10/27/18 16:00 KCU7724 (Rec: 10/27/18 17:12 BHB6744 ICU-C15) Document 10/27/18 17:00 XUE9437 (Rec: 10/27/18 17:39 RWO9307 ICU-M33) Document 10/27/18 18:00 SAO3220 (Rec: 10/27/18 18:06 TTR7049 ICU-C15) Document 10/27/18 20:00 LTA2525 (Rec: 10/27/18 20:57 ORD6600 ICU-C16) Document 10/27/18 23:11 MMZ6581 (Rec: 10/27/18 23:11 VZS2421 ICU-M33) Document 10/28/18 02:14 WYM2483 (Rec: 10/28/18 02:14 OCS7449 ICU-C16) Document 10/28/18 03:27 RXO4123 (Rec: 10/28/18 03:27 LIN6527 ICU-C16) Document 10/28/18 04:00 PGL6596 (Rec: 10/28/18 04:50 JKL6245 ICU-C16) Document 10/28/18 05:43 KHM3620 (Rec: 10/28/18 05:47 VPT5944 ICU-M33) Document 10/28/18 07:00 EGT8454 (Rec: 10/28/18 07:28 QKP3741 ICU-C16) Document 10/28/18 08:00 YDR3709 (Rec: 10/28/18 08:59 GCV7540 ICU-C16) Document 10/28/18 09:00 GBU0627 (Rec: 10/28/18 09:21 SGH5395 ICU-C16) Document 10/28/18 10:00 MAN6717 (Rec: 10/28/18 10:09 VNG3423 ICU-C16) Labs: Laboratory Results - last 24 hr 10/28/18 10/28/18 05:47 05:47 WBC 5.4 RBC 3.24 L Hgb 10.2 L Hct 31 L MCV 96 H MCH 31 MCHC 33 RDW 17 H Plt Count 74 L MPV 11.7 H Neut % (Auto) 69.7 Lymph % (Auto) 10.7 [place] % (Auto) 17.1 Eos % (Auto) 2.1 Baso % (Auto) 0.4 Absolute Neuts (auto) 3.8 Absolute Lymphs (auto) 0.6 L Absolute Monos (auto) 0.9 H Absolute Eos (auto) 0.1 Absolute Basos (auto) 0 Absolute Nucleated RBC 0 Nucleated RBC % 0.2 Sodium 146 H Potassium 4.4 Chloride 120 H Carbon Dioxide 19 L Anion Gap 7 BUN 39 H Creatinine 1.26 H Est GFR ( Amer) 70.4 Est GFR (Non-Af Amer) 58.2 BUN/Creatinine Ratio 31.0 H Glucose 74 Calcium 8.6 Impression: Patient is a 63-year-old male with history of cerebral palsy, admitted on 2018 with complaints of shortness of breath. 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
[2018-10-28] MEDS ORDERED: Vancomycin Trough Check NOTE FOLLOW UP ONE (16:30)
[2018-10-29] MEDS: CMCS:FluvoxaMINE (NF) 50 MG TAB PO SCH ×2 (11:53→18:08)
[2018-10-29] MEDS: clonazePAM TAB(*) 0.5 MG PO SCH (11:57)
[2018-10-29] MEDS: Metoprolol Tartrate TAB* 25 MG PO SCH ×2 (11:58→22:27)
--- NOTE | 2018-10-29 17:13 | PN ---
Subjective Date of Service: 10/29/18 Interval History: Pt reportedly has not slept since arriving to the floor from the ICU. His house aide thinks he has been mildly SOB. He coughs intermittently. The patient is non -verbal and therefore does not answer any of my questions. Objective Active Medications: Carboxymethylcellulose/Glycerin (Refresh Optive Gel Eye Gel) 1 applic BOTH EYES Q4H PRN PRN Reason: DRY EYE Last Admin: 10/26/18 17:09 Dose: 1 applic Clonazepam (Klonopin Tab(*)) 0.5 mg PO DAILY CONSTANZA Last Admin: 10/29/18 11:57 Dose: 0.5 mg Fluvoxamine Maleate (Fluvoxamine (Nf)) 75 mg PO 1700 CONSTANZA; Protocol Heparin Sodium (Porcine) (Heparin Flush Picc/Ml/Cvc(*)) 1 - 3 ml FLUSH 0600, 1800 CONSTANZA; Protocol Last Admin: 10/29/18 05:12 Dose: 3 ml Metoprolol Tartrate (Lopressor Tab*) 12.5 mg PO Q12HR CONSTANZA Last Admin: 10/29/18 11:58 Dose: 12.5 mg Tamsulosin HCl (Flomax Cap*) 0.4 mg PO BEDTIME CONSTANZA Vital Signs - 8 hr 10/29/18 10/29/18 10/29/18 11:51 11:57 15:34 Temperature 97.9 F 98.2 F Pulse Rate 115 92 Respiratory 22 20 20 Rate Blood Pressure 164/88 146/89 (mmHg) O2 Sat by Pulse 98 99 Oximetry Oxygen Devices in Use Now: Nasal Cannula Appearance: Middle aged male sitting up in bed, NAD Eyes: No Scleral Icterus, - - ? subconjunctival hemorrhage of the R medial eye Ears/Nose/Mouth/Throat: Mucous Membranes Moist Respiratory: Symmetrical Chest Expansion and Respiratory Effort, Clear to Auscultation, - - slightly tachypnic Cardiovascular: NL Sounds; No Murmurs; No JVD, RRR, - - 3+ edema of the feet, trace edema of the legs Abdominal: NL Sounds; No Tenderness; No Distention Extremities: No Clubbing, Cyanosis Skin: No Nodules or Sclerosis, - - bruising of both forearms noted Neurological: - - alert, looking around Result Diagrams: 10/28/18 05:47 10/28/18 05:47 Microbiology and Other Data: Microbiology 10/21/18 16:33 Aerobic Blood Culture - Final Blood Venous No Growth Day 5 Anaerobic Blood Culture - Final No Growth Day 5 10/21/18 16:00 Aerobic Blood Culture - Final Blood Venous No Growth Day 5 Anaerobic Blood Culture - Final No Growth Day 5 10/22/18 08:10 Gram Stain - Final Sputum Sputum Culture - Final MRSA 10/21/18 18:34 Nasal Screen MRSA (PCR) - Final Nasal Mrsa Detected 10/21/18 18:34 Legionella Urinary Antigen - Final Urine Negative Legionella Antigen Streptococcus pneumoniae Ag Screen - Final Negative S. pneumo Antigen Assess/Plan/Problems-Billing Mr Sutton is a 63 yo M with intellectual developmental delay who presented to the ER, a day after being discharged where he was diagnosed with influenza, with c/o SOB and was diagnosed with acute hypoxic respiratory failure secondary to superimposed pneumonia. - Patient Problems (1) Acute respiratory failure with hypoxia Current Visit: Yes Status: Acute Code(s): J96.01 - ACUTE RESPIRATORY FAILURE WITH HYPOXIA SNOMED Code(s): 08832057 Comment: The patient was promptly intubated in the ER for hypoxic respiratory failure secondary to influenza and possible RLL pneumonia. He was extubated on 10/28/18. He has remained stable on 2L O2 saturating quite well. He at times has appeared tachypnic but he does not appear to be in any distress. He is now a DNI at the request of his mother who is his HCP. The patient was treated for possible superimposed pneumonia with vanco and zosyn x6 days. He is not febrile and his WBC count is in normal range. (2) Septic shock Current Visit: Yes Status: Acute Code(s): A41.9 - SEPSIS, UNSPECIFIED ORGANISM; R65.21 - SEVERE SEPSIS WITH SEPTIC SHOCK SNOMED Code(s): 64762778 Comment: The patient developed septic shock and required pressors for a period of time. His BP is now much improved. Resume home dose of metoprolol tartrate. (3) Influenza Current Visit: Yes Status: Acute Code(s): J11.1 - FLU DUE TO UNIDENTIFIED INFLUENZA VIRUS W OTH RESP MANIFEST SNOMED Code(s): 0152199 Comment: The patient has completed treatment with tamiflu. (4) Thrombocytopenia Current Visit: No Status: Acute Code(s): D69.6 - THROMBOCYTOPENIA, UNSPECIFIED SNOMED Code(s): 810655152 Comment: Likely secondary to sepsis. Plt count is recovering. Get follow up labs tomorrow. (5) Mitral regurgitation Current Visit: Yes Status: Acute Comment: The patient underwent echocardiogram on 10/22/18 where he was found to have severe mitral regurgitation. There was a question of mitral valve endocarditis vs ruptured chordae. Leaning towards ruptured chordae as the patient's blood cultures are negative to date. Cardiology eval did not recommend evaluation for mitral valve surgery. (6) Stage III chronic kidney disease Current Visit: Yes Status: Acute Code(s): N18.3 - CHRONIC KIDNEY DISEASE, STAGE 3 (MODERATE) SNOMED Code(s): 844392359 Comment: The patient's creatinine is back to baseline. He is mildy hypernatremic. Monitor BMP. (7) HTN (hypertension) Current Visit: Yes Status: Acute Code(s): I10 - ESSENTIAL (PRIMARY) HYPERTENSION SNOMED Code(s): 10698854 Comment: Metoprolol resumed today. (8) DVT prophylaxis Current Visit: Yes Status: Acute Code(s): GXT1426 - SNOMED Code(s): 785515679 Comment: start SQ heparin as plt count recovering (9) DNR (do not resuscitate) Current Visit: Yes Status: Acute
[2018-10-29] MEDS: Tamsulosin CAP* 0.4 MG PO SCH (22:12)
[2018-10-29] MEDS: Heparin VIAL(*) 5000 UNITS/ML VIAL (FIVE THOUSAND) SUBCUT SCH (22:14)
[2018-10-30 05:01] LABS: Hematocrit 36 % (42-52); Hemoglobin 11.7 g/dl (14.0-18.0); Mean Corpuscular HGB Conc 33 g/dl (31-36); Mean Corpuscular Hemoglobin 31 pg (27-31); Mean Corpuscular Volume 96 fL (80-94); Mean Platelet Volume 12.2 fL (7.4-10.4); Platelet Count 95 10^3/ul (150-450); Red Blood Count 3.76 10^6/ul (4.00-5.40); Red Cell Distribution Width 17 % (10.5-15); White Blood Count 8.2 10^3/ul (3.5-10.8)
[2018-10-30 05:16] LABS: BUN/Creatinine Ratio 28.3 (8-20); Calcium 8.7 mg/dL (8.6-10.3); EGFR African American 79.8 (>60); Potassium 4.2 mmol/L (3.5-5.0)
[2018-10-30] MEDS: clonazePAM TAB(*) 0.5 MG PO SCH (10:38)
[2018-10-30] MEDS: Metoprolol Tartrate TAB* 25 MG PO SCH ×2 (10:39→21:30)
[2018-10-30] MEDS: Heparin VIAL(*) 5000 UNITS/ML VIAL (FIVE THOUSAND) SUBCUT SCH ×2 (10:40→21:30)
[2018-10-30] MEDS: Artificial Tears* 15 ML BTL BOTH EYES SCH ×3 (17:03→21:30)
[2018-10-30] MEDS: CMCS:FluvoxaMINE (NF) 50 MG TAB PO SCH (17:14)
--- NOTE | 2018-10-30 17:23 | PN ---
Subjective Date of Service: 10/30/18 Interval History: Pt seen and examined. Meds and labs reviewed. Per house aid at bedside, pt not currently at baseline where pt known to transfer himself from bed to chair and more interactive. CC: Weakness and lethargy from baseline per aid ROS: Pt could not provide reliable ROS due to known CP PHYSICAL EXAM: GEN APPEARANCE: Asleep, arousable, not in acute distress, pt appears weak and decompensated HEENT: NC/AT, PERRLA, moist oral mucosa, (-) throat erythema, (+)erythematous sclerae NECK: Soft, supple, (-) cervical LAD, (-)JVD HEART: S1S2 WNL, RRR, (+)4/6 murmur CHEST: CTA, BL, GAE, No W/R/R ABD: Soft, ND/NT, NABS 4x Q EXT: No C/C/E SKIN: Warm to touch PSYCH: No active psychosis, hallucinations, depression, SI/HI Objective Active Medications: Carboxymethylcellulose/Glycerin (Refresh Optive Gel Eye Gel) 1 applic BOTH EYES Q4H PRN PRN Reason: DRY EYE Last Admin: 10/26/18 17:09 Dose: 1 applic Clonazepam (Klonopin Tab(*)) 0.5 mg PO DAILY [facility] Last Admin: 10/30/18 10:38 Dose: 0.5 mg Fluvoxamine Maleate (Fluvoxamine (Nf)) 75 mg PO 1700 [facility]; Protocol Last Admin: 10/29/18 18:08 Dose: 75 mg Heparin Sodium (Porcine) (Heparin Flush Picc/Ml/Cvc(*)) 1 - 3 ml FLUSH 0600, 1800 [facility]; Protocol Last Admin: 10/30/18 17:05 Dose: 3 ml Heparin Sodium (Porcine) (Heparin Vial(*)) 5,000 units SUBCUT Q12HR [facility] Last Admin: 10/30/18 10:40 Dose: 5,000 units Dextrose/Sodium Chloride (D5w 1/2 Ns 1000 Ml Bag*) 1,000 mls @ 100 mls/hr IV PER RATE [facility] Stop: 11/01/18 03:59 Metoprolol Tartrate (Lopressor Tab*) 12.5 mg PO Q12HR [facility] Last Admin: 10/30/18 10:39 Dose: 12.5 mg Polyvinyl Alcohol (Polyvinyl Alcohol 1.4% Opth*) 1 drop BOTH EYES QID [facility] Last Admin: 10/30/18 17:04 Dose: 1 drop Tamsulosin HCl (Flomax Cap*) 0.4 mg PO BEDTIME [facility] Last Admin: 10/29/18 22:12 Dose: 0.4 mg Vital Signs - 8 hr 10/30/18 10/30/18 10/30/18 10:30 10:38 11:55 Temperature 97.4 F Pulse Rate 99 Respiratory 20 20 20 Rate Blood Pressure 130/84 (mmHg) O2 Sat by Pulse 94 Oximetry 10/30/18 10/30/18 15:49 17:05 Temperature 98.8 F Pulse Rate 91 Respiratory 18 18 Rate Blood Pressure 126/76 (mmHg) O2 Sat by Pulse 100 Oximetry Oxygen Devices in Use Now: Nasal Cannula Result Diagrams: 10/30/18 04:40 10/30/18 04:40 Microbiology and Other Data: Microbiology 10/21/18 16:33 Aerobic Blood Culture - Final Blood Venous No Growth Day 5 Anaerobic Blood Culture - Final No Growth Day 5 10/21/18 16:00 Aerobic Blood Culture - Final Blood Venous No Growth Day 5 Anaerobic Blood Culture - Final No Growth Day 5 10/22/18 08:10 Gram Stain - Final Sputum Sputum Culture - Final MRSA 10/21/18 18:34 Nasal Screen MRSA (PCR) - Final Nasal Mrsa Detected 10/21/18 18:34 Legionella Urinary Antigen - Final Urine Negative Legionella Antigen Streptococcus pneumoniae Ag Screen - Final Negative S. pneumo Antigen Assess/Plan/Problems-Billing Mr Sutton is a 63 yo M with intellectual developmental delay who presented to the ER, a day after being discharged where he was diagnosed with influenza, with c/o SOB and was diagnosed with acute hypoxic respiratory failure secondary to superimposed pneumonia. - Patient Problems (1) Weakness Current Visit: Yes Status: Acute Code(s): R53.1 - WEAKNESS SNOMED Code(s) : 02262183 Comment: -Possibly due to mild DHN/needs free water -Continue PT/OT given pt significantly changed from baseline per aid (2) Dry eyes Current Visit: Yes Status: Acute Code(s): H04.123 - DRY EYE SYNDROME OF BILATERAL LACRIMAL GLANDS SNOMED Code(s): 954460392 Comment: -Likely caused of erythematous sclerae per hx -Placed pt on artificial tears as ordered (3) Acute respiratory failure with hypoxia Current Visit: Yes Status: Acute Code(s): J96.01 - ACUTE RESPIRATORY FAILURE WITH HYPOXIA SNOMED Code(s): 40221943 Comment: -The patient was promptly intubated in the ER for hypoxic respiratory failure secondary to influenza and possible RLL pneumonia. He was extubated on 10/28/18. He has remained stable on 2L O2 saturating quite well. He at times has appeared tachypnic but he does not appear to be in any distress. He is now a DNI at the request of his mother who is his HCP. The patient was treated for possible superimposed pneumonia with vanco and zosyn x6 days. He is not febrile and his WBC count is in normal range. -Completed abx therapy; currently not on any antibiotics (4) Septic shock Current Visit: Yes Status: Acute Code(s): A41.9 - SEPSIS, UNSPECIFIED ORGANISM; R65.21 - SEVERE SEPSIS WITH SEPTIC SHOCK SNOMED Code(s): 02431928 Comment: -Resolved -The patient developed septic shock and required pressors for a period of time. His BP is now much improved. Resume home dose of metoprolol tartrate. (5) Influenza Current Visit: Yes Status: Acute Code(s): J11.1 - FLU DUE TO UNIDENTIFIED INFLUENZA VIRUS W OTH RESP MANIFEST SNOMED Code(s): 2472384 Comment: The patient has completed treatment with tamiflu. (6) Thrombocytopenia Current Visit: No Status: Acute Code(s): D69.6 - THROMBOCYTOPENIA, UNSPECIFIED SNOMED Code(s): 541696858 Comment: -Likely secondary to sepsis -Platelet continues to improve -Continue watchful waiting (7) Mitral regurgitation Current Visit: Yes Status: Acute Comment: The patient underwent echocardiogram on 10/22/18 where he was found to have severe mitral regurgitation. There was a question of mitral valve endocarditis vs ruptured chordae. Leaning towards ruptured chordae as the patient's blood cultures are negative to date. Cardiology eval did not recommend evaluation for mitral valve surgery. (8) Stage III chronic kidney disease Current Visit: Yes Status: Acute Code(s): N18.3 - CHRONIC KIDNEY DISEASE, STAGE 3 (MODERATE) SNOMED Code(s): 746526074 Comment: -The patient's creatinine is back to baseline. -Given mild hypernatremia, will place pt on D51/2NS especially in the setting of net negative I/Os (9) HTN (hypertension) Current Visit: Yes Status: Acute Code(s): I10 - ESSENTIAL (PRIMARY) HYPERTENSION SNOMED Code(s): 32789794 Comment: -Continue current regimen (10) DVT prophylaxis Current Visit: Yes Status: Acute Code(s): DLD1772 - SNOMED Code(s): 743252439 Comment: -Continue Heparin SQ Status and Disposition: -D/C to [facility] on Friday if back to baseline; spoke w/Chuckie his RN in [facility] and his mother is aware and might be open for hospice since there was some discussion for end-of-life care in ICU -Will continue to observe -Continue PT
[2018-10-30] MEDS: D5W 1/2 NS 1000 ML BAG* 1,000 ML IV SCH (17:49)
[2018-10-30] MEDS: Tamsulosin CAP* 0.4 MG PO SCH (21:30)
[2018-10-31] MEDS: D5W 1/2 NS 1000 ML BAG* 1,000 ML IV SCH (04:56)
[2018-10-31 05:22] LABS: Hematocrit 34 % (42-52); Hemoglobin 11.2 g/dl (14.0-18.0); Mean Corpuscular HGB Conc 33 g/dl (31-36); Mean Corpuscular Hemoglobin 32 pg (27-31); Mean Corpuscular Volume 95 fL (80-94); Mean Platelet Volume 11.2 fL (7.4-10.4); Platelet Count 87 10^3/ul (150-450); Red Blood Count 3.55 10^6/ul (4.00-5.40); Red Cell Distribution Width 17 % (10.5-15)
[2018-10-31 05:35] LABS: Albumin 2.8 g/dL (3.2-5.2); BUN/Creatinine Ratio 28.6 (8-20); Calcium 8.4 mg/dL (8.6-10.3); EGFR African American 80.7 (>60); EGFR Non-African American 66.7 (>60); Globulin 2.8 g/dL (2-4); Magnesium 1.8 mg/dL (1.9-2.7); Phosphorus 2.5 mg/dL (2.5-5.0); Potassium 4.1 mmol/L (3.5-5.0); Total Bilirubin 0.6 mg/dL (0.2-1.0); Total Protein 5.6 g/dL (6.4-8.9)
[2018-10-31 05:49] LABS: ABS Basophils 0 10^3/ul (0-0.2); ABS Eosinophils 0 10^3/ul (0-0.6); ABS Lymphocytes 0.4 10^3/ul (1.0-4.8); ABS Monocytes 0.5 10^3/ul (0-0.8); ABS Neutrophils 7.1 10^3/ul (1.5-7.7); ABS Nucleated RBC 0 10^3/ul; Eosinophil % 0.3 %; Large Platelets Present; Lymphocyte % 4.5 %; Nucleated Red Blood Cells % 0; Polychromasia 1+
[2018-10-31] MEDS: Metoprolol Tartrate TAB* 25 MG PO SCH ×3 (09:14→21:00)
[2018-10-31] MEDS: Artificial Tears* 15 ML BTL BOTH EYES SCH ×4 (09:14→21:07)
[2018-10-31] MEDS: clonazePAM TAB(*) 0.5 MG PO SCH ×2 (09:17→11:04)
[2018-10-31] MEDS ORDERED: Ondansetron INJ* 2 MG/ML VIAL IV PRN (09:52)
[2018-10-31] MEDS ORDERED: Magnesium Sulfate 2 GM IV* 2 GM/50 ML BAG IVPB ONE (10:00)
[2018-10-31] MEDS: Heparin VIAL(*) 5000 UNITS/ML VIAL (FIVE THOUSAND) SUBCUT SCH ×2 (10:13→21:07)
--- NOTE | 2018-10-31 16:47 | PN ---
Subjective Date of Service: 10/31/18 Interval History: Pt seen and examined. Meds and labs reviewed. CC: Nausea/vomiting in AM, relieved by Zofran per nursing staff ROS: Pt could not provide reliable ROS due to known CP PHYSICAL EXAM: GEN APPEARANCE: Asleep, arousable, not in acute distress, pt appears weak and decompensated HEENT: NC/AT, PERRLA, moist oral mucosa, (-) throat erythema, (+)erythematous sclerae, improved NECK: Soft, supple, (-) cervical LAD, (-)JVD HEART: S1S2 WNL, RRR, (+)4/6 murmur CHEST: CTA, BL, GAE, No W/R/R ABD: Soft, ND/NT, NABS 4x Q EXT: No C/C/E SKIN: Warm to touch PSYCH: No active psychosis, hallucinations, depression, SI/HI Objective Active Medications: Carboxymethylcellulose/Glycerin (Refresh Optive Gel Eye Gel) 1 applic BOTH EYES Q4H PRN PRN Reason: DRY EYE Last Admin: 10/26/18 17:09 Dose: 1 applic Clonazepam (Klonopin Tab(*)) 0.5 mg PO DAILY [facility] Last Admin: 10/31/18 11:04 Dose: 0.5 mg Fluvoxamine Maleate (Fluvoxamine (Nf)) 75 mg PO 1700 [facility]; Protocol Last Admin: 10/30/18 17:14 Dose: 75 mg Heparin Sodium (Porcine) (Heparin Flush Picc/Ml/Cvc(*)) 1 - 3 ml FLUSH 0600, 1800 [facility]; Protocol Last Admin: 10/31/18 04:58 Dose: 3 ml Heparin Sodium (Porcine) (Heparin Vial(*)) 5,000 units SUBCUT Q12HR [facility] Last Admin: 10/31/18 10:13 Dose: 5,000 units Dextrose/Sodium Chloride (D5w 1/2 Ns 1000 Ml Bag*) 1,000 mls @ 100 mls/hr IV PER RATE [facility] Stop: 11/01/18 03:59 Last Admin: 10/31/18 04:56 Dose: 100 mls/hr Metoprolol Tartrate (Lopressor Tab*) 12.5 mg PO Q12HR [facility] Last Admin: 10/31/18 11:05 Dose: 12.5 mg Ondansetron HCl (Zofran Inj*) 4 mg IV Q6H PRN PRN Reason: NAUSEA Last Admin: 10/31/18 10:14 Dose: 4 mg Polyvinyl Alcohol (Polyvinyl Alcohol 1.4% Opth*) 1 drop BOTH EYES QID [facility] Last Admin: 10/31/18 13:37 Dose: 1 drop Tamsulosin HCl (Flomax Cap*) 0.4 mg PO BEDTIME [facility] Last Admin: 10/30/18 21:30 Dose: 0.4 mg Vital Signs - 8 hr 10/31/18 10/31/18 10/31/18 09:00 09:17 11:04 Temperature Pulse Rate Respiratory 18 18 18 Rate Blood Pressure (mmHg) O2 Sat by Pulse Oximetry 10/31/18 10/31/18 10/31/18 11:37 13:38 15:26 Temperature 98.8 F 97.7 F Pulse Rate 94 76 Respiratory 16 18 16 Rate Blood Pressure 140/83 104/61 (mmHg) O2 Sat by Pulse 92 93 Oximetry Oxygen Devices in Use Now: Nasal Cannula Result Diagrams: 10/31/18 05:00 10/31/18 05:00 Microbiology and Other Data: Microbiology 10/21/18 16:33 Aerobic Blood Culture - Final Blood Venous No Growth Day 5 Anaerobic Blood Culture - Final No Growth Day 5 10/21/18 16:00 Aerobic Blood Culture - Final Blood Venous No Growth Day 5 Anaerobic Blood Culture - Final No Growth Day 5 10/22/18 08:10 Gram Stain - Final Sputum Sputum Culture - Final MRSA 10/21/18 18:34 Nasal Screen MRSA (PCR) - Final Nasal Mrsa Detected 10/21/18 18:34 Legionella Urinary Antigen - Final Urine Negative Legionella Antigen Streptococcus pneumoniae Ag Screen - Final Negative S. pneumo Antigen Assess/Plan/Problems-Billing Mr Sutton is a 63 yo M with intellectual developmental delay who presented to the ER, a day after being discharged where he was diagnosed with influenza, with c/o SOB and was diagnosed with acute hypoxic respiratory failure secondary to superimposed pneumonia. - Patient Problems (1) Weakness Current Visit: Yes Status: Acute Code(s): R53.1 - WEAKNESS SNOMED Code(s) : 26565751 Comment: -Possibly due to mild DHN/needs free water along w/complicated ICU course and likely decompensated from recent illness -Continue PT/OT given pt significantly changed from baseline per aid (2) Dry eyes Current Visit: Yes Status: Acute Code(s): H04.123 - DRY EYE SYNDROME OF BILATERAL LACRIMAL GLANDS SNOMED Code(s): 655815311 Comment: -Likely caused of erythematous sclerae per hx -Continue artificial tears (3) Acute respiratory failure with hypoxia Current Visit: Yes Status: Acute Code(s): J96.01 - ACUTE RESPIRATORY FAILURE WITH HYPOXIA SNOMED Code(s): 00794663 Comment: -The patient was promptly intubated in the ER for hypoxic respiratory failure secondary to influenza and possible RLL pneumonia. He was extubated on 10/28/18. He has remained stable on 2L O2 saturating quite well. He at times has appeared tachypnic but he does not appear to be in any distress. He is now a DNI at the request of his mother who is his HCP. The patient was treated for possible superimposed pneumonia with vanco and zosyn x6 days. He is not febrile and his WBC count is in normal range. -Completed abx therapy; currently not on any antibiotics (4) Septic shock Current Visit: Yes Status: Acute Code(s): A41.9 - SEPSIS, UNSPECIFIED ORGANISM; R65.21 - SEVERE SEPSIS WITH SEPTIC SHOCK SNOMED Code(s): 52602855 Comment: -Resolved -The patient developed septic shock and required pressors for a period of time. His BP is now much improved. Resume home dose of metoprolol tartrate. (5) Influenza Current Visit: Yes Status: Acute Code(s): J11.1 - FLU DUE TO UNIDENTIFIED INFLUENZA VIRUS W OTH RESP MANIFEST SNOMED Code(s): 0614860 Comment: The patient has completed treatment with tamiflu. (6) Thrombocytopenia Current Visit: No Status: Acute Code(s): D69.6 - THROMBOCYTOPENIA, UNSPECIFIED SNOMED Code(s): 429117624 Comment: -Likely secondary to sepsis -Platelet continues to improve -Continue watchful waiting (7) Mitral regurgitation Current Visit: Yes Status: Acute Comment: The patient underwent echocardiogram on 10/22/18 where he was found to have severe mitral regurgitation. There was a question of mitral valve endocarditis vs ruptured chordae. Leaning towards ruptured chordae as the patient's blood cultures are negative to date. Cardiology eval did not recommend evaluation for mitral valve surgery. (8) Stage III chronic kidney disease Current Visit: Yes Status: Acute Code(s): N18.3 - CHRONIC KIDNEY DISEASE, STAGE 3 (MODERATE) SNOMED Code(s): 667812190 Comment: -The patient's creatinine is back to baseline. -Continue IVFs as ordered (9) HTN (hypertension) Current Visit: Yes Status: Acute Code(s): I10 - ESSENTIAL (PRIMARY) HYPERTENSION SNOMED Code(s): 64598604 Comment: -Continue current regimen (10) DVT prophylaxis Current Visit: Yes Status: Acute Code(s): OJI7490 - SNOMED Code(s): 706010680 Comment: -Continue Heparin SQ Status and Disposition: -D/C to [facility] on Friday if back to baseline; spoke w/Chuckie his RN in [facility] ([phone]) and his mother is aware and might be open for hospice since there was some discussion for end-of-life care in ICU -Will continue to observe -Continue PT
[2018-10-31] MEDS: CMCS:FluvoxaMINE (NF) 50 MG TAB PO SCH (17:09)
[2018-10-31] MEDS: Tamsulosin CAP* 0.4 MG PO SCH (21:06)
[2018-11-01 05:07] LABS: Hematocrit 28 % (42-52); Hemoglobin 9.1 g/dl (14.0-18.0); Mean Corpuscular HGB Conc 33 g/dl (31-36); Mean Corpuscular Hemoglobin 32 pg (27-31); Mean Corpuscular Volume 96 fL (80-94); Mean Platelet Volume 12.9 fL (7.4-10.4); Platelet Count 77 10^3/ul (150-450); Red Blood Count 2.87 10^6/ul (4.00-5.40); Red Cell Distribution Width 17 % (10.5-15); White Blood Count 4.1 10^3/ul (3.5-10.8)
[2018-11-01 05:14] LABS: Calcium 8.1 mg/dL (8.6-10.3); EGFR African American 66.7 (>60); EGFR Non-African American 55.1 (>60); Magnesium 2.1 mg/dL (1.9-2.7); Potassium 4.2 mmol/L (3.5-5.0)
[2018-11-01] MEDS: Artificial Tears* 15 ML BTL BOTH EYES SCH ×4 (08:55→22:32)
[2018-11-01] MEDS: clonazePAM TAB(*) 0.5 MG PO SCH (08:57)
[2018-11-01] MEDS: Metoprolol Tartrate TAB* 25 MG PO SCH ×2 (08:57→22:31)
[2018-11-01] MEDS: Heparin VIAL(*) 5000 UNITS/ML VIAL (FIVE THOUSAND) SUBCUT SCH ×2 (08:58→22:31)
[2018-11-01] MEDS: CMCS:FluvoxaMINE (NF) 50 MG TAB PO SCH (17:25)
[2018-11-01] MEDS: D5W 1000 ML BAG* 1,000 ML IV SCH (17:25)
--- NOTE | 2018-11-01 18:14 | PN ---
Subjective Date of Service: 11/01/18 Interval History: Pt seen and examined. Meds and labs reviewed. CC: N/A ROS: Unable to reliably provide 14-point ROS PHYSICAL EXAM: GEN APPEARANCE: Asleep, arousable, not in acute distress, pt appears weak and decompensated HEENT: NC/AT, PERRLA, moist oral mucosa, (-) throat erythema, (+)erythematous sclerae, improved NECK: Soft, supple, (-) cervical LAD, (-)JVD HEART: S1S2 WNL, RRR, (+)4/6 murmur CHEST: CTA, BL, GAE, No W/R/R ABD: Soft, ND/NT, NABS 4x Q EXT: No C/C/E SKIN: Warm to touch PSYCH: No active psychosis, hallucinations, depression, SI/HI ASSESSMENT AND PLAN: Objective Active Medications: Carboxymethylcellulose/Glycerin (Refresh Optive Gel Eye Gel) 1 applic BOTH EYES Q4H PRN PRN Reason: DRY EYE Last Admin: 10/26/18 17:09 Dose: 1 applic Clonazepam (Klonopin Tab(*)) 0.5 mg PO DAILY [facility] Last Admin: 11/01/18 08:57 Dose: 0.5 mg Fluvoxamine Maleate (Fluvoxamine (Nf)) 75 mg PO 1700 [facility]; Protocol Last Admin: 11/01/18 17:25 Dose: 75 mg Heparin Sodium (Porcine) (Heparin Flush Picc/Ml/Cvc(*)) 1 - 3 ml FLUSH 0600, 1800 [facility]; Protocol Last Admin: 11/01/18 17:19 Dose: Not Given Heparin Sodium (Porcine) (Heparin Vial(*)) 5,000 units SUBCUT Q12HR [facility] Last Admin: 11/01/18 08:58 Dose: 5,000 units Dextrose (D5w 1000 Ml Bag*) 1,000 mls @ 100 mls/hr IV PER RATE [facility] Stop: 11/02/18 18:59 Last Admin: 11/01/18 17:25 Dose: 100 mls/hr Metoprolol Tartrate (Lopressor Tab*) 12.5 mg PO Q12HR [facility] Last Admin: 11/01/18 08:57 Dose: 12.5 mg Ondansetron HCl (Zofran Inj*) 4 mg IV Q6H PRN PRN Reason: NAUSEA Last Admin: 10/31/18 10:14 Dose: 4 mg Polyvinyl Alcohol (Polyvinyl Alcohol 1.4% Opth*) 1 drop BOTH EYES QID [facility] Last Admin: 11/01/18 17:26 Dose: 1 drop Tamsulosin HCl (Flomax Cap*) 0.4 mg PO BEDTIME [facility] Last Admin: 10/31/18 21:06 Dose: 0.4 mg Vital Signs - 8 hr 11/01/18 11/01/18 11/01/18 11:08 13:00 15:51 Temperature 98.6 F 98.0 F Pulse Rate 71 71 Respiratory 14 16 16 Rate Blood Pressure 100/63 113/73 (mmHg) O2 Sat by Pulse 100 100 Oximetry Oxygen Devices in Use Now: Nasal Cannula Result Diagrams: 11/01/18 04:35 11/01/18 14:19 Microbiology and Other Data: Microbiology 10/21/18 16:33 Aerobic Blood Culture - Final Blood Venous No Growth Day 5 Anaerobic Blood Culture - Final No Growth Day 5 10/21/18 16:00 Aerobic Blood Culture - Final Blood Venous No Growth Day 5 Anaerobic Blood Culture - Final No Growth Day 5 10/22/18 08:10 Gram Stain - Final Sputum Sputum Culture - Final MRSA 10/21/18 18:34 Nasal Screen MRSA (PCR) - Final Nasal Mrsa Detected 10/21/18 18:34 Legionella Urinary Antigen - Final Urine Negative Legionella Antigen Streptococcus pneumoniae Ag Screen - Final Negative S. pneumo Antigen Assess/Plan/Problems-Billing Mr Sutton is a 63 yo M with intellectual developmental delay who presented to the ER, a day after being discharged where he was diagnosed with influenza, with c/o SOB and was diagnosed with acute hypoxic respiratory failure secondary to superimposed pneumonia. - Patient Problems (1) Weakness Current Visit: Yes Status: Acute Code(s): R53.1 - WEAKNESS SNOMED Code(s) : 23286415 Comment: -Pt had one time fever yesterday and pt still appears weak and debilitated and lethargic -Sent for blood Cx, CXR, and U/A and will await findings -Possibly due to mild DHN/needs free water along w/complicated ICU course and likely decompensated from recent illness---improving hyponatremia -Continue PT/OT given pt significantly changed from baseline per aid (2) Dry eyes Current Visit: Yes Status: Acute Code(s): H04.123 - DRY EYE SYNDROME OF BILATERAL LACRIMAL GLANDS SNOMED Code(s): 288124373 Comment: -Likely caused of erythematous sclerae per hx -Continue artificial tears (3) Acute respiratory failure with hypoxia Current Visit: Yes Status: Acute Code(s): J96.01 - ACUTE RESPIRATORY FAILURE WITH HYPOXIA SNOMED Code(s): 24375523 Comment: -The patient was promptly intubated in the ER for hypoxic respiratory failure secondary to influenza and possible RLL pneumonia. He was extubated on 10/28/18. He has remained stable on 2L O2 saturating quite well. He at times has appeared tachypnic but he does not appear to be in any distress. He is now a DNI at the request of his mother who is his HCP. The patient was treated for possible superimposed pneumonia with vanco and zosyn x6 days. He is not febrile and his WBC count is in normal range. -Completed abx therapy; currently not on any antibiotics (4) Septic shock Current Visit: Yes Status: Acute Code(s): A41.9 - SEPSIS, UNSPECIFIED ORGANISM; R65.21 - SEVERE SEPSIS WITH SEPTIC SHOCK SNOMED Code(s): 43635413 Comment: -Resolved -The patient developed septic shock and required pressors for a period of time. His BP is now much improved. Resume home dose of metoprolol tartrate. (5) Influenza Current Visit: Yes Status: Acute Code(s): J11.1 - FLU DUE TO UNIDENTIFIED INFLUENZA VIRUS W OTH RESP MANIFEST SNOMED Code(s): 2924001 Comment: The patient has completed treatment with tamiflu. (6) Thrombocytopenia Current Visit: No Status: Acute Code(s): D69.6 - THROMBOCYTOPENIA, UNSPECIFIED SNOMED Code(s): 918955406 Comment: -Likely secondary to sepsis -Platelet continues to improve -Continue watchful waiting (7) Mitral regurgitation Current Visit: Yes Status: Acute Comment: The patient underwent echocardiogram on 10/22/18 where he was found to have severe mitral regurgitation. There was a question of mitral valve endocarditis vs ruptured chordae. Leaning towards ruptured chordae as the patient's blood cultures are negative to date. Cardiology eval did not recommend evaluation for mitral valve surgery. (8) Stage III chronic kidney disease Current Visit: Yes Status: Acute Code(s): N18.3 - CHRONIC KIDNEY DISEASE, STAGE 3 (MODERATE) SNOMED Code(s): 608481088 Comment: -The patient's creatinine is back to baseline. -Continue IVFs as ordered (9) HTN (hypertension) Current Visit: Yes Status: Acute Code(s): I10 - ESSENTIAL (PRIMARY) HYPERTENSION SNOMED Code(s): 08868970 Comment: -Continue current regimen (10) DVT prophylaxis Current Visit: Yes Status: Acute Code(s): UMZ8803 - SNOMED Code(s): 568776273 Comment: -Continue Heparin SQ Status and Disposition: -Spoke w/pts mother Charlotte on the phone and asked her how I can update her. She then interrupted my person midsentence and asked All I want to know is if he is going to make it, I proceeded to explain his complicated course and the low probability of recovery back to [place] and it was my opinion that hospice end-of-life care would be appropriate given that he appears to be getting weaker with poor PO intake with multiple medical problems. She then handed the phone to her aid to talk to me but she can be heard on the phone asking her aid to ask her question to me. She mentioned that she is open to hospice but if he stays in the hospital. I informed aid over the phone that I will consult Social workers on the matter if this is even possible. She also requests that the doctor who will talk to her regarding hospice care come to her house. I informed aid that I am not sure if Dr. Bishop does house calls, but mentioned if this is not possible, she will likely give her a call. -Will continue to observe -Continue PT
[2018-11-01] MEDS: Tamsulosin CAP* 0.4 MG PO SCH (22:31)
[2018-11-02] MEDS: D5W 1000 ML BAG* 1,000 ML IV SCH (04:34)
[2018-11-02 05:27] LABS: Urine Appearance Cloudy; Urine Bacteria Absent (Absent); Urine Bilirubin Negative (Negative); Urine Blood 2+ (Negative); Urine Color Yellow; Urine Glucose Negative (Negative); Urine Ketones Negative (Negative); Urine Nitrite Negative (Negative); Urine Protein Negative (Negative); Urine Red Blood Cell 2+(6-10/hpf) (Absent); Urine Urobilinogen Negative (Negative); Urine White Blood Cell 3+(>20/hpf) (Absent)
[2018-11-02 05:38] LABS: Hematocrit 29 % (42-52); Hemoglobin 9.3 g/dl (14.0-18.0); Mean Corpuscular HGB Conc 33 g/dl (31-36); Mean Corpuscular Hemoglobin 31 pg (27-31); Mean Corpuscular Volume 96 fL (80-94); Red Blood Count 2.98 10^6/ul (4.00-5.40); Red Cell Distribution Width 18 % (10.5-15); White Blood Count 5.1 10^3/ul (3.5-10.8)
[2018-11-02 05:54] LABS: Albumin 2.7 g/dL (3.2-5.2); Albumin/Globulin Ratio 1.1 (1-3); BUN/Creatinine Ratio 29.8 (8-20); Calcium 8.2 mg/dL (8.6-10.3); EGFR African American 71.7 (>60); EGFR Non-African American 59.3 (>60); Globulin 2.5 g/dL (2-4); Phosphorus 2.9 mg/dL (2.5-5.0); Potassium 4.2 mmol/L (3.5-5.0); Total Bilirubin 0.3 mg/dL (0.2-1.0); Total Protein 5.2 g/dL (6.4-8.9)
[2018-11-02 06:14] LABS: ABS Basophils 0 10^3/ul (0-0.2); ABS Eosinophils 0.1 10^3/ul (0-0.6); ABS Lymphocytes 0.8 10^3/ul (1.0-4.8); ABS Monocytes 0.6 10^3/ul (0-0.8); ABS Neutrophils 3.6 10^3/ul (1.5-7.7); ABS Nucleated RBC 0 10^3/ul; Eosinophil % 1.4 %; Large Platelets Present; Mean Platelet Volume 12.5 fL (7.4-10.4); Nucleated Red Blood Cells % 0.1; Platelet Count 82 10^3/ul (150-450)
[2018-11-02] MEDS: Metoprolol Tartrate TAB* 25 MG PO SCH ×2 (08:46→22:28)
[2018-11-02] MEDS: clonazePAM TAB(*) 0.5 MG PO SCH (08:49)
[2018-11-02] MEDS: Furosemide IV* 10 MG/ML VIAL (40 MG) IV SLOW PU SCH (08:51)
[2018-11-02] MEDS: Heparin VIAL(*) 5000 UNITS/ML VIAL (FIVE THOUSAND) SUBCUT SCH ×2 (08:51→22:29)
[2018-11-02] MEDS: Artificial Tears* 15 ML BTL BOTH EYES SCH ×4 (09:11→23:12)
[2018-11-02] MEDS: cefTRIAXone(*) 1 GM in NS 0.9% 50 ML* 50 ML IVPB SCH (10:48)
--- NOTE | 2018-11-02 15:19 | PN ---
Subjective Date of Service: 11/02/18 Interval History: Pt seen and examined. Meds and labs reviewed. CC: N/A ROS: Unable to reliably provide 14 point ROS PHYSICAL EXAM: GEN APPEARANCE: Awake, not in acute distress HEENT: NC/AT, PERRLA, moist oral mucosa, (-) throat erythema NECK: Soft, supple, (-) cervical LAD, (-)JVD HEART: S1S2 WNL, RRR, No MRG CHEST: CTA, BL, GAE, No W/R/R ABD: Soft, ND/NT, NABS 4x Q EXT: No C/C/E SKIN: Warm to touch PSYCH: No active psychosis, hallucinations, depression, SI/HI Objective Active Medications: Carboxymethylcellulose/Glycerin (Refresh Optive Gel Eye Gel) 1 applic BOTH EYES Q4H PRN PRN Reason: DRY EYE Last Admin: 10/26/18 17:09 Dose: 1 applic Clonazepam (Klonopin Tab(*)) 0.5 mg PO DAILY [facility] [place] Last Admin: 11/02/18 08:49 Dose: 0.5 mg Fluvoxamine Maleate (Fluvoxamine (Nf)) 75 mg PO 1700 CONSTANZA; Protocol Last Admin: 11/01/18 17:25 Dose: 75 mg Furosemide (Lasix Iv*) 40 mg IV SLOW PU DAILY [facility] [place] Last Admin: 11/02/18 08:51 Dose: 40 mg Heparin Sodium (Porcine) (Heparin Flush Picc/Ml/Cvc(*)) 1 - 3 ml FLUSH 0600, 1800 CONSTANZA; Protocol Last Admin: 11/02/18 04:48 Dose: 1 ml Heparin Sodium (Porcine) (Heparin Vial(*)) 5,000 units SUBCUT Q12HR [facility] [place] Last Admin: 11/02/18 08:51 Dose: 5,000 units Ceftriaxone Sodium 1 gm/ (Sodium Chloride) 50 mls @ 200 mls/hr IVPB Q24H [facility] [place] Last Admin: 11/02/18 10:48 Dose: 200 mls/hr Metoprolol Tartrate (Lopressor Tab*) 12.5 mg PO Q12HR [facility] [place] Last Admin: 11/02/18 08:46 Dose: 12.5 mg Ondansetron HCl (Zofran Inj*) 4 mg IV Q6H PRN PRN Reason: NAUSEA Last Admin: 10/31/18 10:14 Dose: 4 mg Polyvinyl Alcohol (Polyvinyl Alcohol 1.4% Opth*) 1 drop BOTH EYES QID [facility] [place] Last Admin: 11/02/18 14:07 Dose: 1 drop Tamsulosin HCl (Flomax Cap*) 0.4 mg PO BEDTIME [facility] [place] Last Admin: 11/01/18 22:31 Dose: 0.4 mg Vital Signs - 8 hr 11/02/18 11/02/18 11/02/18 08:00 08:18 08:49 Temperature 98.3 F Pulse Rate 85 Respiratory 12 18 12 Rate Blood Pressure 159/98 (mmHg) O2 Sat by Pulse 100 Oximetry 11/02/18 14:08 Temperature Pulse Rate Respiratory 16 Rate Blood Pressure (mmHg) O2 Sat by Pulse Oximetry Oxygen Devices in Use Now: Nasal Cannula Result Diagrams: 11/02/18 05:00 11/02/18 05:00 Microbiology and Other Data: Microbiology 10/21/18 16:33 Aerobic Blood Culture - Final Blood Venous No Growth Day 5 Anaerobic Blood Culture - Final No Growth Day 5 10/21/18 16:00 Aerobic Blood Culture - Final Blood Venous No Growth Day 5 Anaerobic Blood Culture - Final No Growth Day 5 10/22/18 08:10 Gram Stain - Final Sputum Sputum Culture - Final MRSA 10/21/18 18:34 Nasal Screen MRSA (PCR) - Final Nasal Mrsa Detected 10/21/18 18:34 Legionella Urinary Antigen - Final Urine Negative Legionella Antigen Streptococcus pneumoniae Ag Screen - Final Negative S. pneumo Antigen Assess/Plan/Problems-Billing Mr Sutton is a 63 yo M with intellectual developmental delay who presented to the ER, a day after being discharged where he was diagnosed with influenza, with c/o SOB and was diagnosed with acute hypoxic respiratory failure secondary to superimposed pneumonia. - Patient Problems (1) UTI (urinary tract infection) Current Visit: Yes Status: Acute Comment: -Placed pt on Rocephin; likely the reason why pt appeared ill and weak -Continue to follow Blood Cx -Continue to follow Urine Cx (2) CHF (congestive heart failure) Current Visit: Yes Status: Acute Code(s): I50.9 - HEART FAILURE, UNSPECIFIED SNOMED Code(s): 09289359 Comment: -Diastolic -Likely due to MR -Continue Lasix as ordered (3) Weakness Current Visit: Yes Status: Acute Code(s): R53.1 - WEAKNESS SNOMED Code(s) : 60396320 Comment: -Pt had one time fever yesterday and pt still appears weak and debilitated and lethargic -Sent for blood Cx, CXR, and U/A and will await findings -Possibly due to mild DHN/needs free water along w/complicated ICU course and likely decompensated from recent illness---improving hyponatremia -Continue PT/OT given pt significantly changed from baseline per aid (4) Dry eyes Current Visit: Yes Status: Acute Code(s): H04.123 - DRY EYE SYNDROME OF BILATERAL LACRIMAL GLANDS SNOMED Code(s): 364830189 Comment: -Likely caused of erythematous sclerae per hx -Continue artificial tears (5) Acute respiratory failure with hypoxia Current Visit: Yes Status: Acute Code(s): J96.01 - ACUTE RESPIRATORY FAILURE WITH HYPOXIA SNOMED Code(s): 32755826 Comment: -The patient was promptly intubated in the ER for hypoxic respiratory failure secondary to influenza and possible RLL pneumonia. He was extubated on 10/28/18. He has remained stable on 2L O2 saturating quite well. He at times has appeared tachypnic but he does not appear to be in any distress. He is now a DNI at the request of his mother who is his HCP. The patient was treated for possible superimposed pneumonia with vanco and zosyn x6 days. He is not febrile and his WBC count is in normal range. -Completed abx therapy; currently not on any antibiotics (6) Septic shock Current Visit: Yes Status: Acute Code(s): A41.9 - SEPSIS, UNSPECIFIED ORGANISM; R65.21 - SEVERE SEPSIS WITH SEPTIC SHOCK SNOMED Code(s): 80022535 Comment: -Resolved -The patient developed septic shock and required pressors for a period of time. His BP is now much improved. Resume home dose of metoprolol tartrate. (7) Influenza Current Visit: Yes Status: Acute Code(s): J11.1 - FLU DUE TO UNIDENTIFIED INFLUENZA VIRUS W OTH RESP MANIFEST SNOMED Code(s): 0928943 Comment: The patient has completed treatment with tamiflu. (8) Thrombocytopenia Current Visit: No Status: Acute Code(s): D69.6 - THROMBOCYTOPENIA, UNSPECIFIED SNOMED Code(s): 947086929 Comment: -Likely secondary to sepsis -Platelet continues to improve -Continue watchful waiting (9) Mitral regurgitation Current Visit: Yes Status: Acute Comment: -The patient underwent echocardiogram on 10/22/18 where he was found to have severe mitral regurgitation. There was a question of mitral valve endocarditis vs ruptured chordae. Leaning towards ruptured chordae as the patient's blood cultures are negative to date. Cardiology eval did not recommend evaluation for mitral valve surgery. -Pt a poor candidate for corrective surgery and agree w/Dr. Shook s eval (10) Stage III chronic kidney disease Current Visit: Yes Status: Acute Code(s): N18.3 - CHRONIC KIDNEY DISEASE, STAGE 3 (MODERATE) SNOMED Code(s): 325317607 Comment: -The patient's creatinine is back to baseline. -Continue IVFs as ordered (11) HTN (hypertension) Current Visit: Yes Status: Acute Code(s): I10 - ESSENTIAL (PRIMARY) HYPERTENSION SNOMED Code(s): 22557842 Comment: -Continue current regimen (12) DVT prophylaxis Current Visit: Yes Status: Acute Code(s): [id number] - SNOMED Code(s): 485603115 Comment: -Continue Heparin SQ Status and Disposition: -D/W Chuckie and who will be seeing pt for Hospice consult and given multiple conditions above as well as risks for nosocomials agree pt is likely candidate for hospice -Will continue to observe -Continue PT
[2018-11-02] MEDS: CMCS:FluvoxaMINE (NF) 50 MG TAB PO SCH (17:29)
--- NOTE | 2018-11-02 20:47 | CONSULT ---
Palliative / Hospice Consult Ordering Provider: Jhonny Alberts - PCP Dewayne - Subjective Code Status: DNR Advance Directives Location: Filed at Another Location MOLST Part A Completed: Yes - on chart MOLST Part E Completed:: Yes - on chart - History or Present Illness History or Present Illness: 63 yo male with cerebral palsy resident of [facility] presented to the hospital with SOB and diagnosed with pneumonia. All history is from the medical records and [facility]([phone][facility]. On admission he was intubated secondary to hypoxic respiratory failure and in the ICU. He was extubated and transferred to the floor. He is a pleasant gentleman with limited verbal skills. PMH is significant for recent influenza A infection, CHF, HTN, GERD, thrombocytopenia, CKD stage 3, BPH, duodenal ulcer, cyst in the R kidney, Normal pressure hydrocephalus, episode of endocarditis in the past, splenic mass biopsied in 10/2015 wh was benign, frequent UTI and indwelling alamo secondary to neurogenic bladdder. CT abd showed splenic mass, ECHO showed mod TR , mild-mod pul HTN, severe MR mod pericardial effusion, ruptured chordae, EF 55- 60% diastolic dysfunction CXR -RML pneumonia. H/H 9.3/29, plt 82, tprot 5.2, alb 2.7, CRP 62, BNP 262. No weight loss noted. Lab Values: Abnormal Lab Results 11/02/18 11/02/18 11/02/18 04:38 05:00 05:00 WBC 5.1 RBC 2.98 L Hgb 9.3 L Hct 29 L MCV 96 H MCH 31 MCHC 33 RDW 18 H Plt Count 82 L MPV 12.5 H Neut % (Auto) 70.8 Lymph % (Auto) 15.0 [place] % (Auto) 12.4 Eos % (Auto) 1.4 Baso % (Auto) 0.4 Absolute Neuts (auto) 3.6 Absolute Lymphs (auto) 0.8 L Absolute Monos (auto) 0.6 Absolute Eos (auto) 0.1 Absolute Basos (auto) 0 Absolute Nucleated RBC 0 Nucleated RBC % 0.1 Large Platelets Present Giant Platelets Present Sodium 144 Potassium 4.2 Chloride 116 H Carbon Dioxide 24 Anion Gap 4 BUN 37 H Creatinine 1.24 H Est GFR ( Amer) 71.7 Est GFR (Non-Af Amer) 59.3 BUN/Creatinine Ratio 29.8 H Glucose 93 Calcium 8.2 L Phosphorus 2.9 Magnesium 2.0 Total Bilirubin 0.30 AST 21 ALT 19 Alkaline Phosphatase 97 Total Protein 5.2 L Albumin 2.7 L Globulin 2.5 Albumin/Globulin Ratio 1.1 Urine Color Yellow Urine Appearance Cloudy Urine pH 6.0 Ur Specific [place] 1.010 Urine Protein Negative Urine Ketones Negative Urine Blood 2+ A Urine Nitrate Negative Urine Bilirubin Negative Urine Urobilinogen Negative Ur Leukocyte Esterase 3+ A Urine WBC (Auto) 3+(>20/hpf) A Urine RBC (Auto) 2+(6-10/hpf) A Urine Bacteria Absent Urine Glucose Negative Laboratory Last Values WBC 5.1 10^3/ul (3.5-10.8) 11/02/18 05:00 RBC 2.98 10^6/ul (4.00-5.40) L 11/02/18 05:00 Hgb 9.3 g/dl (14.0-18.0) L 11/02/18 05:00 Hct 29 % (42-52) L 11/02/18 05:00 MCV 96 fL (80-94) H 11/02/18 05:00 MCH 31 pg (27-31) 11/02/18 05:00 MCHC 33 g/dl (31-36) 11/02/18 05:00 RDW 18 % (10.5-15) H 11/02/18 05:00 Plt Count 82 10^3/ul (150-450) L 11/02/18 05:00 MPV 12.5 fL (7.4-10.4) H 11/02/18 05:00 Neut % (Auto) 70.8 % 11/02/18 05:00 Lymph % (Auto) 15.0 % 11/02/18 05:00 [place] % (Auto) 12.4 % 11/02/18 05:00 Eos % (Auto) 1.4 % 11/02/18 05:00 Baso % (Auto) 0.4 % 11/02/18 05:00 Absolute Neuts (auto) 3.6 10^3/ul (1.5-7.7) 11/02/18 05:00 Absolute Lymphs (auto) 0.8 10^3/ul (1.0-4.8) L 11/02/18 05:00 Absolute Monos (auto) 0.6 10^3/ul (0-0.8) 11/02/18 05:00 Absolute Eos (auto) 0.1 10^3/ul (0-0.6) 11/02/18 05:00 Absolute Basos (auto) 0 10^3/ul (0-0.2) 11/02/18 05:00 Absolute Nucleated RBC 0 10^3/ul 11/02/18 05:00 Neutrophils % 73 % 10/27/18 06:13 Lymphocytes % 15 % 10/27/18 06:13 Monocytes % 11 % 10/27/18 06:13 Eosinophils % 0 % 10/27/18 06:13 Basophils % 1 % 10/27/18 06:13 Nucleated RBC % 0.1 11/02/18 05:00 Abs Neuts (Manual) 3.4 10^3/ul (1.5-7.7) 10/27/18 06:13 Abs Lymphs (Manual) 0.7 10^3/ul (1.0-4.8) L 10/27/18 06:13 Abs Monocytes (Manual) 0.5 10^3/ul (0-0.8) 10/27/18 06:13 Absolute Eos (Manual) 0 10^3/ul (0-0.6) 10/27/18 06:13 Abs Basophils (Manual) 0 10^3/ul (0-0.2) 10/27/18 06:13 Nucleated RBCs/100 WBC 1 (0-0) H 10/27/18 06:13 Large Platelets Present 11/02/18 05:00 Giant Platelets Present 11/02/18 05:00 Normal RBC Morphology Not Reportable 10/27/18 06:13 Polychromasia 1+ 10/31/18 05:00 Hypochromasia 1+ 10/27/18 06:13 Anisocytosis 1+ 10/27/18 06:13 [place] Cells 1+ 10/22/18 04:31 INR (Anticoag Therapy) 1.22 (0.77-1.02) H 10/21/18 16:00 D-Dimer, Quantitative 338 ng/mL (Less Than 230) H 10/21/18 16:00 Patient Temperature Not Reportable 10/21/18 18:30 ABG pH 7.32 (7.35-7.45) L 10/21/18 18:30 ABG pH (Temp Correct) Not Reportable 10/21/18 18:30 ABG pCO2 32 mmHg (35-45) L 10/21/18 18:30 ABG pCO2 (Temp Corrct Not Reportable 10/21/18 18:30 ABG pO2 104 mmHg (80-100) H 10/21/18 18:30 ABG pO2 (Temp Correct Not Reportable 10/21/18 18:30 ABG HCO3 18.3 mmol/L (19-31) L 10/21/18 18:30 ABG O2 Saturation 99.7 % (94.0-98.0) H 10/21/18 18:30 ABG Base Excess -8.5 mmol/L (-2.0-2.0) L 10/21/18 18:30 Respiration Rate 14 10/21/18 18:30 Ventilator Type 500 10/21/18 18:30 Vent Mode cmv 10/21/18 18:30 FiO2 3 10/21/18 18:30 Inspiratory Time Not Reportable 10/21/18 18:30 PEEP 5 10/21/18 18:30 Pressure Support Not Reportable 10/21/18 18:30 Pressure Control Not Reportable 10/21/18 18:30 EPAP Not Reportable 10/21/18 18:30 IPAP Not Reportable 10/21/18 18:30 BiPAP Not Reportable 10/21/18 18:30 Sodium 144 mmol/L (135-145) 11/02/18 05:00 Potassium 4.2 mmol/L (3.5-5.0) 11/02/18 05:00 Chloride 116 mmol/L (101-111) H 11/02/18 05:00 Carbon Dioxide 24 mmol/L (22-32) 11/02/18 05:00 Anion Gap 4 mmol/L (2-11) 11/02/18 05:00 BUN 37 mg/dL (6-24) H 11/02/18 05:00 Creatinine 1.24 mg/dL (0.67-1.17) H 11/02/18 05:00 Est GFR ( Amer) 71.7 (>60) 11/02/18 05:00 Est GFR (Non-Af Amer) 59.3 (>60) 11/02/18 05:00 BUN/Creatinine Ratio 29.8 (8-20) H 11/02/18 05:00 Glucose 93 mg/dL (70-100) 11/02/18 05:00 Lactic Acid 0.6 mmol/L (0.5-2.0) 10/21/18 21:14 Calcium 8.2 mg/dL (8.6-10.3) L 11/02/18 05:00 Ionized Calcium 1.21 mmol/L (1.16-1.32) 10/26/18 07:53 Phosphorus 2.9 mg/dL (2.5-5.0) 11/02/18 05:00 Magnesium 2.0 mg/dL (1.9-2.7) 11/02/18 05:00 Total Bilirubin 0.30 mg/dL (0.2-1.0) 11/02/18 05:00 Direct Bilirubin 0.10 mg/dL (0.03-0.18) 10/26/18 07:53 Indirect Bilirubin 0.3 mg/dL (0.3-1.0) 10/26/18 07:53 AST 21 U/L (13-39) 11/02/18 05:00 ALT 19 U/L (7-52) 11/02/18 05:00 Alkaline Phosphatase 97 U/L (34-104) 11/02/18 05:00 Troponin I 0.01 ng/mL (<0.04) 10/21/18 16:00 C-Reactive Protein 62.46 mg/L (<8.01) H 10/21/18 16:00 B-Natriuretic Peptide 262 pg/mL (<=100) H 10/21/18 16:00 Total Protein 5.2 g/dL (6.4-8.9) L 11/02/18 05:00 Albumin 2.7 g/dL (3.2-5.2) L 11/02/18 05:00 Globulin 2.5 g/dL (2-4) 11/02/18 05:00 Albumin/Globulin Ratio 1.1 (1-3) 11/02/18 05:00 Urine Color Yellow 11/02/18 04:38 Urine Appearance Cloudy 11/02/18 04:38 Urine pH 6.0 (5-9) 11/02/18 04:38 Ur Specific [place] 1.010 (1.010-1.030) 11/02/18 04:38 Urine Protein Negative (Negative) 11/02/18 04:38 Urine Ketones Negative (Negative) 11/02/18 04:38 Urine Blood 2+ (Negative) A 11/02/18 04:38 Urine Nitrate Negative (Negative) 11/02/18 04:38 Urine Bilirubin Negative (Negative) 11/02/18 04:38 Urine Urobilinogen Negative (Negative) 11/02/18 04:38 Ur Leukocyte Esterase 3+ (Negative) A 11/02/18 04:38 Urine WBC (Auto) 3+(>20/hpf) (Absent) A 11/02/18 04:38 Urine RBC (Auto) 2+(6-10/hpf) (Absent) A 11/02/18 04:38 Urine Bacteria Absent (Absent) 11/02/18 04:38 Urine Glucose Negative (Negative) 11/02/18 04:38 Vancomycin Trough 16.6 mcg/mL 10/24/18 15:30 - Objective Active Medications: Carboxymethylcellulose/Glycerin (Refresh Optive Gel Eye Gel) 1 applic BOTH EYES Q4H PRN PRN Reason: DRY EYE Last Admin: 10/26/18 17:09 Dose: 1 applic Clonazepam (Klonopin Tab(*)) 0.5 mg PO DAILY [facility] Last Admin: 11/02/18 08:49 Dose: 0.5 mg Fluvoxamine Maleate (Fluvoxamine (Nf)) 75 mg PO 1700 CONSTANZA; Protocol Last Admin: 11/02/18 17:29 Dose: 75 mg Furosemide (Lasix Iv*) 40 mg IV SLOW PU DAILY [facility] Last Admin: 11/02/18 08:51 Dose: 40 mg Heparin Sodium (Porcine) (Heparin Flush Picc/Ml/Cvc(*)) 1 - 3 ml FLUSH 0600, 1800 CONSTANZA; Protocol Last Admin: 11/02/18 17:34 Dose: 3 ml Heparin Sodium (Porcine) (Heparin Vial(*)) 5,000 units SUBCUT Q12HR [facility] Last Admin: 11/02/18 08:51 Dose: 5,000 units Ceftriaxone Sodium 1 gm/ (Sodium Chloride) 50 mls @ 200 mls/hr IVPB Q24H [facility] Last Admin: 11/02/18 10:48 Dose: 200 mls/hr Metoprolol Tartrate (Lopressor Tab*) 12.5 mg PO Q12HR [facility] Last Admin: 11/02/18 08:46 Dose: 12.5 mg Ondansetron HCl (Zofran Inj*) 4 mg IV Q6H PRN PRN Reason: NAUSEA Last Admin: 10/31/18 10:14 Dose: 4 mg Polyvinyl Alcohol (Polyvinyl Alcohol 1.4% Opth*) 1 drop BOTH EYES QID [facility] Last Admin: 11/02/18 17:34 Dose: 1 drop Tamsulosin HCl (Flomax Cap*) 0.4 mg PO BEDTIME [facility] Last Admin: 11/01/18 22:31 Dose: 0.4 mg Vital Signs: Vital Signs: Temp Pulse Resp BP Pulse Ox 96.8 F 88 16 104/52 99 11/02/18 15:27 11/02/18 15:27 11/02/18 15:27 11/02/18 16:00 11/02/18 15:27 Patient Weight: Weight 50.5 kg Intake and Output: Intake & Output 10/31/18 11/01/18 11/02/18 11/03/18 06:59 06:59 06:59 06:59 Intake Total 960 0 720 10 Output Total 798 198 8592 1350 Balance 55 -750 555 -4000 Intake: Oral 960 0 720 10 Output: Urine 950 [place] 750 1275 1350 Other: Estimated Void Medium # Bowel Movements 1 0 2 Estimated Stool Amount Medium Medium # Voids 1 ADLs: Meal Record Start: 10/21/18 17: 46 Freq: 09,13,18 Status: Active Protocol: Created 10/21/18 17:46 System (Rec: 10/21/18 17:46 System ICU-M33) Document 10/22/18 09:00 SKI1303 (Rec: 10/22/18 10:14 IAX0568 ICU-C15) Document 10/22/18 13:00 NQR3763 (Rec: 10/22/18 13:08 LAF1367 ICU-C15) Document 10/22/18 18:00 GUT9617 (Rec: 10/22/18 18:16 HQQ3151 ICU-C15) Document 10/23/18 08:14 CAO4509 (Rec: 10/23/18 08:14 IZA1304 ICU-C16) Document 10/23/18 12:53 GFQ1847 (Rec: 10/23/18 12:53 ENG2601 ICU-C16) Document 10/23/18 17:07 XRE1829 (Rec: 10/23/18 17:07 WHX8023 ICU-C16) Document 10/24/18 18:00 TCZ5715 (Rec: 10/24/18 19:06 TMT8156 ICU-M33) Document 10/26/18 09:00 AZG7362 (Rec: 10/26/18 09:03 FCZ6426 ICU-C16) Document 10/26/18 12:50 YKP3571 (Rec: 10/26/18 12:50 ZNO3412 ICU-C16) Document 10/26/18 17:52 ZAT8608 (Rec: 10/26/18 17:52 LKB7097 ICU-C16) Document 10/27/18 09:00 SQU3049 (Rec: 10/27/18 09:20 IYK7581 ICU-C15) Document 10/27/18 13:00 SAE7747 (Rec: 10/27/18 14:28 MAH3912 ICU-C15) Document 10/27/18 18:00 LGA9103 (Rec: 10/27/18 18:06 QBX5097 ICU-C15) Document 10/28/18 09:00 IHG8330 (Rec: 10/28/18 09:18 DDM5385 ICU-C16) Document 10/28/18 13:00 ZEA1580 (Rec: 10/28/18 13:53 AZT3108 ICU-C16) Document 10/28/18 18:00 SNK5938 (Rec: 10/28/18 20:53 HAE2049 MED-C09) Document 10/29/18 09:00 KUM9530 (Rec: 10/29/18 16:56 KLL2153 MED-C14) Document 10/29/18 13:00 APS9725 (Rec: 10/29/18 16:57 ZQB2625 MED-C14) Document 10/29/18 18:00 UGA8764 (Rec: 10/29/18 18:37 JWU8437 MED-C14) Document 10/30/18 09:00 ETP9312 (Rec: 10/30/18 12:27 UYD1172 MED-C14) Document 10/30/18 13:00 GTM9485 (Rec: 10/30/18 16:20 LUP6256 MED-C13) Document 10/30/18 18:00 KGT4229 (Rec: 10/30/18 18:44 OKK5319 MED-C11) Document 10/31/18 09:00 UBT3855 (Rec: 10/31/18 09:29 ZII7664 MED-C09) Document 10/31/18 13:00 RHX9366 (Rec: 10/31/18 13:41 YSZ8494 MED-C09) Document 10/31/18 17:47 SZB8387 (Rec: 10/31/18 17:48 FVM6145 MED-C09) Document 11/01/18 09:00 JGI5313 (Rec: 11/01/18 09:06 SFR4713 MED-C05) Document 11/01/18 13:00 FJM2550 (Rec: 11/01/18 13:25 TQY8800 MED-C05) Document 11/01/18 17:37 VYT5728 (Rec: 11/01/18 17:38 VWK3293 MED-C05) Document 11/02/18 09:00 WNJ4677 (Rec: 11/02/18 14:23 WEO0526 MED-C16) Intake and Output Start: 10/21/18 15: 27 Freq: 06,14,2200 Status: Active Protocol: Created 10/21/18 15:27 System (Rec: 10/21/18 15:27 System ED-C24) Document 10/28/18 12:05 VTC8800 (Rec: 10/28/18 12:05 OXB1730 ICU-C16) Intake and Output Start: 10/21/18 17: 46 Freq: Q1HR Status: Inactive Protocol: Created 10/21/18 17:46 System (Rec: 10/21/18 17:46 System ICU-M33) Document 10/21/18 19:00 VXD6760 (Rec: 10/21/18 20:31 HCZ8673 ICU-C16) Document 10/21/18 20:00 RPJ1163 (Rec: 10/21/18 23:52 CRK4612 ICU-C16) Document 10/21/18 21:00 DHW2305 (Rec: 10/21/18 23:52 GGU0455 ICU-C16) Document 10/21/18 22:00 GMX3430 (Rec: 10/21/18 23:52 UWM8724 ICU-C16) Document 10/21/18 23:00 VOB1128 (Rec: 10/21/18 23:52 OEV1789 ICU-C16) Document 10/22/18 00:00 KCQ5977 (Rec: 10/22/18 00:34 QXX5952 ICU-C16) Document 10/22/18 02:00 APD6345 (Rec: 10/22/18 02:47 DHL8856 ICU-C16) Document 10/22/18 03:00 CLF9963 (Rec: 10/22/18 05:10 KJY5060 ICU-M33) Document 10/22/18 04:00 MNF8709 (Rec: 10/22/18 05:10 ATY4372 ICU-M33) Document 10/22/18 05:00 OCJ9702 (Rec: 10/22/18 05:10 JPJ9921 ICU-M33) Document 10/22/18 05:55 HHQ6918 (Rec: 10/22/18 05:57 FPK4015 ICU-M33) Document 10/22/18 07:49 ETE1863 (Rec: 10/22/18 07:49 QWY1161 ICU-M33) Document 10/22/18 10:49 HGO6550 (Rec: 10/22/18 10:49 OSF1292 ICU-M33) Document 10/22/18 13:34 CKO3097 (Rec: 10/22/18 13:34 KVU5762 ICU-C15) Document 10/22/18 15:00 JSW5990 (Rec: 10/22/18 15:16 NQX6437 ICU-M33) Document 10/22/18 16:55 IGB1951 (Rec: 10/22/18 16:55 ZJF3533 ICU-C15) Document 10/22/18 18:19 YYS1876 (Rec: 10/22/18 18:19 YRF1530 ICU-M33) Document 10/22/18 19:00 GMV0935 (Rec: 10/22/18 19:34 ZPB6769 ICU-M33) Document 10/22/18 20:00 IOL7078 (Rec: 10/22/18 20:36 CPI8294 ICU-C10) Document 10/22/18 21:00 SVK0480 (Rec: 10/22/18 21:19 PKB6224 ICU-C10) Document 10/22/18 21:53 JBD5956 (Rec: 10/22/18 21:56 YNN4231 ICU-M33) Document 10/22/18 23:00 HYD1695 (Rec: 10/22/18 23:19 NQE4082 ICU-M33) Document 10/22/18 23:51 FNK0523 (Rec: 10/23/18 00:07 RFH3919 ICU-C10) Document 10/23/18 01:00 OYJ4203 (Rec: 10/23/18 01:11 DVW7990 ICU-C10) Document 10/23/18 02:00 LEI9625 (Rec: 10/23/18 02:50 RBP1009 ICU-M33) Document 10/23/18 03:00 MYE4820 (Rec: 10/23/18 03:14 OKS6956 ICU-C10) Document 10/23/18 04:00 JHB9757 (Rec: 10/23/18 04:53 LJA3598 ICU-C10) Document 10/23/18 05:00 SXD1631 (Rec: 10/23/18 05:03 PIC0647 ICU-C10) Document 10/23/18 06:00 OKM0080 (Rec: 10/23/18 06:05 IMO5144 ICU-M33) Document 10/23/18 07:43 MEF5205 (Rec: 10/23/18 07:43 JZA9965 ICU-M33) Document 10/23/18 10:32 HQA9101 (Rec: 10/23/18 10:32 WNF2497 ICU-C16) Document 10/23/18 12:49 RKD3507 (Rec: 10/23/18 12:50 BTL1113 ICU-M33) Document 10/23/18 14:26 AMH8418 (Rec: 10/23/18 14:26 KPN5316 ICU-C16) Document 10/23/18 16:43 PUK3928 (Rec: 10/23/18 16:43 VZB6175 ICU-M33) Document 10/23/18 17:05 ONV6242 (Rec: 10/23/18 17:05 OXI9847 ICU-C16) Document 10/23/18 18:05 AUC4309 (Rec: 10/23/18 18:05 DXK2896 ICU-C16) Document 10/23/18 19:00 NSJ8572 (Rec: 10/23/18 19:42 NHH0746 ICU-C16) Document 10/23/18 20:00 ZPS3155 (Rec: 10/23/18 21:24 PAA6751 ICU-C16) Document 10/23/18 21:00 VZL3142 (Rec: 10/23/18 21:24 TSA8856 ICU-C16) Document 10/23/18 22:00 JXF8147 (Rec: 10/23/18 22:59 AEF0830 ICU-C25) Document 10/23/18 23:00 EIM9969 (Rec: 10/23/18 23:12 WHL9041 ICU-C16) Document 10/24/18 01:00 VIQ7652 (Rec: 10/24/18 01:06 LID5922 ICU-M33) Document 10/24/18 03:00 QME5070 (Rec: 10/24/18 03:25 FZM0710 ICU-L03) Document 10/24/18 04:00 JVM0949 (Rec: 10/24/18 04:21 IGF9073 ICU-L03) Document 10/24/18 06:00 WLV1233 (Rec: 10/24/18 06:14 KVC9052 ICU-M33) Document 10/24/18 07:00 LDA7900 (Rec: 10/24/18 10:11 EJQ9383 ICU-M33) Document 10/24/18 08:00 BSR9147 (Rec: 10/24/18 10:11 YIE2354 ICU-M33) Document 10/24/18 09:00 LZN7638 (Rec: 10/24/18 10:11 HXY1475 ICU-M33) Document 10/24/18 10:00 MZE4657 (Rec: 10/24/18 10:11 SLT0335 ICU-M33) Document 10/24/18 11:05 QHO4470 (Rec: 10/24/18 11:06 AST5976 ICU-M33) Document 10/24/18 12:20 CCS7151 (Rec: 10/24/18 12:28 AFV6901 ICU-M33) Document 10/24/18 13:05 ISP4420 (Rec: 10/24/18 13:05 WKK3348 ICU-M33) Document 10/24/18 14:00 QEM7744 (Rec: 10/24/18 15:33 KMG0357 ICU-M33) Document 10/24/18 15:00 DCB5473 (Rec: 10/24/18 15:33 IAU0033 ICU-M33) Document 10/24/18 16:00 PYQ5478 (Rec: 10/24/18 17:38 DZL3597 ICU-M33) Document 10/24/18 17:00 EFX5634 (Rec: 10/24/18 17:38 SFH4488 ICU-M33) Document 10/24/18 18:00 PHC1491 (Rec: 10/24/18 19:08 IGM4022 ICU-M33) Document 10/24/18 19:00 BTJ4788 (Rec: 10/24/18 19:08 NHI2178 ICU-M33) Document 10/24/18 20:00 HKK1218 (Rec: 10/24/18 20:53 ADG2376 ICU-C10) Document 10/24/18 21:00 UVD1211 (Rec: 10/24/18 22:01 YZH4842 ICU-C10) Document 10/24/18 22:00 HWL5547 (Rec: 10/24/18 22:01 BEX7434 ICU-C10) Document 10/24/18 23:00 IQU0690 (Rec: 10/24/18 23:50 EEH0604 ICU-C10) Document 10/25/18 00:00 MDL1445 (Rec: 10/25/18 00:51 RAR6887 ICU-C10) Document 10/25/18 01:00 YHE9115 (Rec: 10/25/18 01:18 VVP3924 ICU-C10) Document 10/25/18 02:00 PHN0291 (Rec: 10/25/18 02:10 XAX3180 ICU-C10) Document 10/25/18 03:00 EIA9036 (Rec: 10/25/18 03:00 OOE1368 ICU-C10) Document 10/25/18 04:00 CYZ5264 (Rec: 10/25/18 04:21 ZCP1433 ICU-C10) Document 10/25/18 05:00 CSP4774 (Rec: 10/25/18 05:10 WJX5369 ICU-C10) Document 10/25/18 06:00 YVW5179 (Rec: 10/25/18 06:34 TKM6123 ICU-C10) Document 10/25/18 07:00 QYR6586 (Rec: 10/25/18 08:19 ULG9773 ICU-L03) Document 10/25/18 08:00 WOR0290 (Rec: 10/25/18 08:19 IEM6280 ICU-L03) Document 10/25/18 09:05 NQY9393 (Rec: 10/25/18 09:05 KEV3899 ICU-M33) Document 10/25/18 10:15 RWT7104 (Rec: 10/25/18 10:31 OEG2787 ICU-M33) Document 10/25/18 10:51 DRM5781 (Rec: 10/25/18 10:51 JWB0111 ICU-M33) Document 10/25/18 12:30 SGU4418 (Rec: 10/25/18 12:40 SWM9398 ICU-M33) Document 10/25/18 13:15 WNS8635 (Rec: 10/25/18 13:22 DPI0065 ICU-M33) Document 10/25/18 13:52 XCH2210 (Rec: 10/25/18 13:54 PMA5028 ICU-M33) Document 10/25/18 15:03 JGN4411 (Rec: 10/25/18 15:04 HNX2396 ICU-M33) Document 10/25/18 16:21 OFV5571 (Rec: 10/25/18 16:22 TJJ7311 ICU-M33) Document 10/25/18 17:18 XNU1143 (Rec: 10/25/18 17:18 TGW1365 ICU-M33) Document 10/25/18 18:03 QIS8976 (Rec: 10/25/18 18:04 RPI0010 ICU-M33) Document 10/25/18 19:09 QNH1191 (Rec: 10/25/18 19:09 HLY6030 ICU-M33) Document 10/25/18 22:21 TIU0008 (Rec: 10/25/18 22:22 PWS5434 ICU-M33) Document 10/25/18 22:22 JHQ8804 (Rec: 10/25/18 22:22 HBV8337 ICU-M33) Document 10/25/18 22:24 XUK7124 (Rec: 10/25/18 22:24 ZZF5150 ICU-M33) Document 10/26/18 01:36 DMI1750 (Rec: 10/26/18 01:36 AOV7996 ICU-M33) Document 10/26/18 03:12 ZLE8696 (Rec: 10/26/18 03:12 SCX4647 ICU-M33) Document 10/26/18 06:24 VDO0244 (Rec: 10/26/18 06:25 PIN6521 ICU-M33) Document 10/26/18 07:00 DFQ4250 (Rec: 10/26/18 07:12 UMQ3921 ICU-C16) Document 10/26/18 07:45 NKT8536 (Rec: 10/26/18 07:46 IHN0784 ICU-M33) Document 10/26/18 09:08 USV8940 (Rec: 10/26/18 09:08 CYT2505 ICU-C16) Document 10/26/18 09:53 QKK9153 (Rec: 10/26/18 09:53 NIC7245 ICU-M33) Document 10/26/18 10:46 IXG2825 (Rec: 10/26/18 10:46 HAU3584 ICU-C16) Document 10/26/18 12:00 HTX5459 (Rec: 10/26/18 12:06 QWL0866 ICU-M33) Document 10/26/18 12:55 BJT9188 (Rec: 10/26/18 12:55 PRK6866 ICU-M33) Document 10/26/18 13:59 ESR9858 (Rec: 10/26/18 13:59 [id number] ICU-M33) Document 10/26/18 15:00 SKU6788 (Rec: 10/26/18 15:10 [id number] ICU-C16) Document 10/26/18 15:53 KIC1931 (Rec: 10/26/18 15:53 OAE1731 ICU-M33) Document 10/26/18 16:56 PUU7512 (Rec: 10/26/18 16:56 [id number] ICU-M33) Document 10/26/18 17:50 EJS4062 (Rec: 10/26/18 17:50 [id number] ICU-M33) Document 10/26/18 19:51 WMX2006 (Rec: 10/26/18 19:51 QSQ5100 ICU-M30) Document 10/26/18 21:56 QRY0243 (Rec: 10/26/18 21:56 YSL1968 ICU-M33) Document 10/27/18 00:00 TJO6768 (Rec: 10/27/18 00:56 OWC2774 ICU-M33) Document 10/27/18 02:52 KTI0059 (Rec: 10/27/18 02:52 BMV4254 ICU-M33) Document 10/27/18 04:55 CXT2732 (Rec: 10/27/18 04:55 GJO3024 ICU-C16) Document 10/27/18 06:15 NSQ0430 (Rec: 10/27/18 06:15 QCK4075 ICU-M33) Document 10/27/18 07:00 YTJ5226 (Rec: 10/27/18 07:53 [id number] ICU-C15) Document 10/27/18 08:00 GFM0430 (Rec: 10/27/18 09:06 [id number] ICU-M33) Document 10/27/18 09:00 [id number] (Rec: 10/27/18 09:06 NSX8705 ICU-M33) Document 10/27/18 10:00 HKM5457 (Rec: 10/27/18 12:38 [id number] ICU-C15) Document 10/27/18 11:00 TIL5191 (Rec: 10/27/18 12:38 EEZ3099 ICU-C15) Document 10/27/18 12:00 [id number] (Rec: 10/27/18 12:38 QYU0100 ICU-C15) Document 10/27/18 13:00 KDQ8587 (Rec: 10/27/18 14:28 [id number] ICU-C15) Document 10/27/18 14:00 OST5319 (Rec: 10/27/18 14:40 PRQ6574 ICU-M33) Document 10/27/18 15:00 VRJ2365 (Rec: 10/27/18 15:10 YGZ2750 ICU-C15) Document 10/27/18 16:00 ORB1280 (Rec: 10/27/18 17:12 TBO7349 ICU-C15) Document 10/27/18 17:00 FXZ6710 (Rec: 10/27/18 17:39 [id number] ICU-M33) Document 10/27/18 18:00 TWM4976 (Rec: 10/27/18 18:06 [id number] ICU-C15) Document 10/27/18 20:00 MTG3196 (Rec: 10/27/18 20:57 [id number] ICU-C16) Document 10/27/18 23:11 SOB3677 (Rec: 10/27/18 23:11 UWF2608 ICU-M33) Document 10/28/18 02:14 KAN0366 (Rec: 10/28/18 02:14 [id number] ICU-C16) Document 10/28/18 03:27 KLS7957 (Rec: 10/28/18 03:27 [id number] ICU-C16) Document 10/28/18 04:00 CLL2371 (Rec: 10/28/18 04:50 DOB0127 ICU-C16) Document 10/28/18 05:43 LRG3679 (Rec: 10/28/18 05:47 [id number] ICU-M33) Document 10/28/18 07:00 DCZ2968 (Rec: 10/28/18 07:28 ZBV2179 ICU-C16) Document 10/28/18 08:00 GPM7449 (Rec: 10/28/18 08:59 RSY4574 ICU-C16) Document 10/28/18 09:00 PNC1249 (Rec: 10/28/18 09:21 UAL0059 ICU-C16) Document 10/28/18 10:00 PAW0323 (Rec: 10/28/18 10:09 [id number] ICU-C16) Head: Normal Eyes: No Scleral Icterus, - - ? subconjunctival hemorrhage of the R medial eye Ears/Nose/Mouth/Throat: Mucous Membranes Moist Cardiovascular: NL Sounds; No Murmurs; No JVD - murmur, - - 3+ edema of the feet , trace edema of the legs Respiratory: Clear to Auscultation - limited respiratory effort Abdominal: NL Sounds; No Tenderness; No Distention Extremities: No Clubbing, Cyanosis Neurological: - - alert, looking around - Assessment Assessment: 63yo malewith cerebral palsy with hypoxic respiratory failure secondary to RML pneumonia, CKD, CHF eligible for hospice - Plan Consult Plan (MU): Hospice Plan: Spoke with his mom briefly about pt returning to the hospital in the future or being cared for by hospice [facility]. She elected hospice. Spoke with Chuckie from his [facility] who felt he was appropriate for hospice and she has had several other residence use hospice in the past. On his return to [facility] hospice will evaluate him for home hospice. Spoke with CM who will notify [facility]. KPS 40%, PPS 40%. Hospice eligibility based on severe valve disease ( not a candidate for valve repair) and CHF diastolic, malnutrition( alb 2.7, tprot 5.2), CKD stage 3 and recent hypoxic respiratory failure. - Time On Unit Date of Evaluation: 11/02/18 Hospice Consult Time in: 03:00 Hospice Consult Time Out: 04:30 Hospice Consult Time Total: 90 > 50% of Time Spend In Counseling or Coordinating Care: Yes
[2018-11-02] MEDS: Tamsulosin CAP* 0.4 MG PO SCH (22:29)
[2018-11-03 05:54] LABS: Hematocrit 28 % (42-52); Hemoglobin 9.2 g/dl (14.0-18.0); Mean Corpuscular HGB Conc 33 g/dl (31-36); Mean Corpuscular Hemoglobin 32 pg (27-31); Mean Corpuscular Volume 96 fL (80-94); Mean Platelet Volume 12.7 fL (7.4-10.4); Platelet Count 90 10^3/ul (150-450); Red Blood Count 2.91 10^6/ul (4.00-5.40); Red Cell Distribution Width 18 % (10.5-15); White Blood Count 3.9 10^3/ul (3.5-10.8)
[2018-11-03 06:06] LABS: Albumin 2.6 g/dL (3.2-5.2); BUN/Creatinine Ratio 25.4 (8-20); Calcium 8.2 mg/dL (8.6-10.3); EGFR African American 67.9 (>60); EGFR Non-African American 56.1 (>60); Globulin 2.6 g/dL (2-4); Magnesium 1.8 mg/dL (1.9-2.7); Potassium 4.3 mmol/L (3.5-5.0); Total Bilirubin 0.4 mg/dL (0.2-1.0); Total Protein 5.2 g/dL (6.4-8.9)
[2018-11-03] MEDS: Metoprolol Tartrate TAB* 25 MG PO SCH (11:30)
[2018-11-03] MEDS: clonazePAM TAB(*) 0.5 MG PO SCH (11:30)
[2018-11-03] MEDS: Artificial Tears* 15 ML BTL BOTH EYES SCH ×3 (11:33→17:06)
--- NOTE | 2018-11-03 11:34 | PN ---
Progress Note - Progress Note Date of Service: 11/03/18 Note: Time spent on discharge including exam of patient, discussion with CM, nurse, review of EMR and preparation of discharge documents is 45 minutes.
[2018-11-03] MEDS: Heparin VIAL(*) 5000 UNITS/ML VIAL (FIVE THOUSAND) SUBCUT SCH (11:56)
[2018-11-03] MEDS: cefTRIAXone(*) 1 GM in NS 0.9% 50 ML* 50 ML IVPB SCH (11:56)
[2018-11-03] MEDS: Furosemide IV* 10 MG/ML VIAL (40 MG) IV SLOW PU SCH (11:56)
--- NOTE | 2018-11-03 12:34 | DS ---
CC: Nav Buchanan MD DISCHARGE SUMMARY: DATE OF ADMISSION: 10/21/18 DATE OF DISCHARGE: 11/03/18. HISTORY: This 63-year-old man was admitted with shortness of breath. He has cerebral palsy and intellectual delay and was resident of [facility]. He was found to have influenza A, cough and fever, and probable pneumonia, although the official read showed no pneumonia. The patient later was thought to have congestive heart failure, echocardiogram showed severe mitral regurgitation with abnormal anatomy of the mitral valve possibly a ruptured chordae or even a vegetation. He was found to be eligible for hospice and I believe his caretakers would like to go that route. The patient was treated with antibiotics. He did show improvement, he was treated with renally dosed oseltamivir. He was found to be hospice eligible. He will need to be evaluated formally for hospice care at his alf. He was thought to have a urinary tract infection initially but the urine culture showed mixed denise, possibly a contamination. Echocardiogram showed severe mitral regurgitation with abnormal anatomy of the mitral valve, possibly ruptured chordae or vegetation or other cause. He was treated for a full course of oseltamivir, adjusted for renal insufficiency. His Pena catheter was changed on the day of discharge. I am going to continue him on furosemide 20 mg p.o. daily. He received 40 mg IV here with negative balance. I noticed BMP was about 260. DISCHARGE MEDICATIONS: 1. Tamsulosin 0.4 mg daily. 2. Multivitamins with minerals one daily. 3. Ferrous sulfate 325 mg daily. 4. Metoprolol tartrate one-half tablet twice daily. 5. Saccharomyces 500 mg b.i.d. 6. Fluvoxamine 75 mg daily. 7. Loratadine 10 mg daily. 8. Clonazepam 0.5 mg daily. 9. Omeprazole 40 mg daily. CONDITION ON DISCHARGE: Guarded. DISPOSITION ON DISCHARGE: Discharged home. [id number]/[facility] #: [id number] MTDD
[2018-11-03 13:41] VITALS: BP 110/71
[2018-11-03] MEDS: CMCS:FluvoxaMINE (NF) 50 MG TAB PO SCH (17:06)
[2018-11-04] MEDS ORDERED: Furosemide TAB* 20 MG PO SCH (09:00)
== END 2018-11-03 17:40 | disposition home or self-care (01) | DRG 207 ==
LOC: ED 15:12 → ICU 17:06 → MED 10-28 10:54
PROVIDERS: ADMIT Internal Medicine; ATTEND Internal Medicine
PROC: 0BH17EZ Insertion of Endotracheal Airway into Trachea, Via Natural or Artificial Opening (ICD-10-PCS; principal; 2018-10-21)
PROC: 5A1955Z Respiratory Ventilation, Greater than 96 Consecutive Hours (ICD-10-PCS; 2018-10-21)
DX: J96.01 Acute respiratory failure with hypoxia (principal); I51.1 Rupture of chordae tendineae, not elsewhere classified; J10.08 Influenza due to other identified influenza virus with other specified pneumonia; E87.2 Acidosis; N17.9 Acute kidney failure, unspecified; I31.3 Pericardial effusion (noninflammatory); R18.8 Other ascites; I13.0 Hypertensive heart and chronic kidney disease with heart failure and stage 1 through stage 4 chronic kidney disease, or unspecified chronic kidney disease; E46 Unspecified protein-calorie malnutrition; Z68.1 Body mass index [BMI] 19.9 or less, adult; N39.0 Urinary tract infection, site not specified; I50.30 Unspecified diastolic (congestive) heart failure; I05.9 Rheumatic mitral valve disease, unspecified; G80.9 Cerebral palsy, unspecified; D69.6 Thrombocytopenia, unspecified; E78.00 Pure hypercholesterolemia, unspecified; F41.9 Anxiety disorder, unspecified; K21.9 Gastro-esophageal reflux disease without esophagitis; N40.0 Benign prostatic hyperplasia without lower urinary tract symptoms; N31.9 Neuromuscular dysfunction of bladder, unspecified; R62.50 Unspecified lack of expected normal physiological development in childhood; Z66 Do not resuscitate; N18.3 Chronic kidney disease, stage 3 (moderate); D73.9 Disease of spleen, unspecified; Z90.5 Acquired absence of kidney; Z85.72 Personal history of non-Hodgkin lymphomas; Z88.5 Allergy status to narcotic agent; Z87.11 Personal history of peptic ulcer disease; Z87.440 Personal history of urinary (tract) infections; Z88.2 Allergy status to sulfonamides; Z88.8 Allergy status to other drugs, medicaments and biological substances; Z88.1 Allergy status to other antibiotic agents; H04.123 Dry eye syndrome of bilateral lacrimal glands
CPT/HCPCS: 36415; 71045; 74018; 74019; 74177; 80048; 80053; 80076; 80202; 81003; 81015; 82330; 82803; 83605; 83735; 83880; 84100; 84300; 84484; 85025; 85027; 85379; 85610; 86140; 87040; 87070; 87077; 87086; 87186; 87205; 87641; 87899; 93005; 94003; 99285; A9270-GY; C1751; G8978-GP-CM; G8979-GP-CK; J0330; J0692; J0696; J1644; J1940; J2405; J2543; J2704; J2920; J2997; J3370; J3475; J3480; Q9967

== ENCOUNTER 2018-11-26 19:37 | Emergency (ER) | payer BC, MEDICAID, MEDICARE, OTHER ==
--- OUTSIDE RECORDS SUMMARY | 2018-11-26 19:50 | XMS REPORT | Continuity of Care Document ---
:1955 External Reference #:[id number] Author Name Nav Buchanan MD Address [address] [place] [address] Care Team Providers Name Role Phone Nav Buchanan MD Care Team Information Cluster Bore Operator Unavailable Payers Date Identification Numbers Payment Provider Subscriber Effective: Policy Number: [id number] Medicare - Bswny Umd Octavio Arreguin 1985 PayID: [id number] [address] [place] [address] Effective: 2014 Policy Number: [id number] [facility] Charlotte Arreguin Expires: 2017 Group Name: [place] [address] PayID: [id number] [place] [address] Effective: 2009 Policy Number: Medicaid/Computer [employer] Octavio Arreguin [id number] Expires: 2017 Group Name: 1 1 [address] PayID: [id number] [place] [address] Effective: 2017 Policy Number: [id number] [facility] Octavio Arreguin Group Name: [facility] [address] PayID: [id number] [place] [id number] Advance Directives Description No Information Available Problems Date Description Provider Status Onset: Urinary [...] kidney Active Family History Date Family Member(s) Observation Comments General Cancer, Colon Father Cancer, Colon Social History Type Date Description Comments Sex Unknown Marital Status Single Lives With Caregiver [employer] [place] patient. His mid 90's mother retains guardianship, Rocky is looking into trying to change this. Diet Healthy, Well Balanced Occupation Disabled Tobacco Use Start: Unknown Never Smoked Cigarettes ETOH Use Denies alcohol use Recreational Drug Use Denies Drug Use Exercise Type/Frequency Does not exercise Allergies, Adverse Reactions, Alerts Date Description Reaction Status Severity Comments 02/15/2016 Erythromycin Active 02/15/2016 Codeine Active 02/15/2016 Sulfa Antibiotics Active 02/15/2016 Compazine Active 02/15/2016 Phenergan Active 02/15/2016 Zofran Active Medications Medication Date Status Form Strength Qnty SIG Indications Ordering Provider Polymyxin B 11/20 Active Solution 51782-1.1 10ml 1 drop to Nav Sulfate/Trimethop /2019 Unit/ML-% both eyes Heet[place]ks rim Sulfate four times , MD a day for 7 days Use Eyedrops In 11/20 Active Nav Both Eyes For [place]ks Week as Directed. MD Swallowing 11/18 Active as Nav Evaluation directed MD Dewayne Acetaminophen 11/18 Active Suppository 650mg 12uni tab every Nav ts 6 hours as Heetdivya needed MD pain/fever Levsin 11/18 Active Tablets 0.125mg 30tab by mouth Nav /2018 s every 4 Heetderks hours as MD needed for secretions Crush Medication 11/18 Active Nav /2018 MD Dewayne Haloperidol 11/18 Active Concentrate 2mg/ml 15ml 0.5 Nav Lactate /2019 milliliter He[place]ks s under , tongue prn for agitation up to 4 times daily Metoclopramide 11/18 Active Tablets 10mg 90tab 1 tab by Nav HCL s mouth Heetderks every 6 , MD hours for nausea New Simplythick 11/15 Active 55uni Use For Nav Food Thickener ts Honey Heetdivya Thick , Liquids Morphine Sulfate 11/05 Active Solution 20mg/ml 30ml 5mg=0.25ml Telly (Concentrate) every 3 Arshad, hours as M.D. needed for pain or sob Lorazepam 11/05 Active Tablets 0.5mg 14tab take 1 Telly s tablet by Arshad, mouth M.D. every 6 hours as needed for anxiety Levsin/SL 11/05 Active Tablets Sub 0.125mg 14tab 1 tab Nav s sublingual [place] every 4 , MD hours as needed Bisacodyl 11/05 Active Suppository 10mg 12uni 1 every Nav ts day as [place] needed , [facility] 11/03 Active wnt Radha Chacko, NEONATAL INTENSIVE CARE NURSE-C Amoxicillin 08/18 Active Capsules 500mg 14cap 4 Pills Nav s One HR [place] Prior To , Dental Appt Shoe Lifts 06/25 Active For M21.759 correction Heet[place]ks of unequal , limb length. Nebulizer D/C 12/16 Active MD Dewayne Ventolin 08/29 Active Nebulizer 0.083% 30uni Q6H ts New Shoes 05/28 Active as needed G80.8 Nav DXcode Dewayne g80.9 , Robitussin 05/27 Active Liquid 100mg/5ML 118ml 5mL twice J20.9 Nav Mucus+Chest /2016 a day for [place] Congestion cough x 5 , days Shoe Repair 05/26 Active as needed G80.8 Nav dx code Dewayne g80.8 , Centrum Tab 130Ea 05/26 Active 30uni Take 1 ts Tablet By [place] Mouth Once , Daily (Supplemen t) Klonopin 02/12 Active Tablets 0.5mg 30tab take one F41.9 s tablet by Dewayne mouth at , MD bedtime mdd 1 mdd 1 mdd 1 mdd 1 MDD 1 Florastor 250MG 01/07 Active Caps 120ca Take 2 ps Capsules Levietdivya By Mouth MD Two Times A Day (Prophy) Benadryl Allergy 11/11 Active Capsules 25mg 30cap 1 capsule F51.02 s take by Heetdivya mouth q6 , MD as needed. Hold scheduled evening dose if given within 6 hours. Refresh 09/13 Active MD Dewayne Hospital Bed 08/30 Active adjustable G80.9 bed for Dewayne sleep. MD severe physical disabiliti es. Zeasorb-AF 07/15 Active Powder 2% 85uni Apply To ts Interspace Dewayne (Toes) MD Every Day (Tinea Pedis) Sudafed 07/05 Active Tablets 30mg 90tab 1 tab by s mouth Dewayne three MD times a day as needed Bacitracin Zinc 07/05 Active Ointment 500Unit/G 14.17 apply to M 0gm rash on Heet[place]ks face twice , MD a day as needed Resource 2.0 05/28 Active Liquid QS 8 oz twice R63.4 a day MD Dewayne Hydrocortisone 04/21 Active Cream 1% 28.35 twice 0gm daily MD Dewayne Ferrous Sulfate 12/20 Active Tablets 325(65Fe) 30tab every day mg s MD Dewayne Multivitamin & Active Tablet 30tab take 1 Nav s tablet by Dewayne mouth once , daily. Florastor Active Capsules 250mg 120ca take two Nav ps capsules Dewayne by MD alicia twice a day [place] Active Liquid 60uni 2 times a Nav Breakfast / ts day Dewayne [place] MD Acetaminophen Active Tablets 325mg 120ta 2 tabs by Nav / bs mouth Heetderemmanuel every 6 , MD hours as needed for pain or fever. Pepto-Bismol Active Chewtabs 262mg 30uni take two Nav /0000 ts tab by Dewayne pearson MD every 4 as needed Claritin Active Tablets 10mg 30tab 1 by mouth Nav /0000 s every day Heet[place]ks as needed , Robitussin DM Active Syrup 100-10mg/ 118ml 10 Nav /0000 5ML milliliter [place] s by mouth , every 6 hours as needed Lotrimin AF Active Cream 1% 12gm apply to Nav /0000 digits Heet[place]ks once daily , twice a week for 3 months Vigamox Active Solution 0.5% 3ml instill 1 Nav /0000 drop into Heetderemmanuel both eyes , every day Tamsulosin HCL Active Capsules 0.4mg 30cap 1 by mouth Nav /0000 s every day MD Dewayne Omeprazole Active Capsules DR 40mg 30cap Take 1 Nav /0000 s Capsule By Heetderemmanuel Mouth Once , Daily (GERD) Systane Ultra Active Solution 0.4-0.3% 20uni Instill 1 Nav /0000 ts Drop 4 [place]ks Timesa Day , Both Eyes (One Bottle For Program) (Dry Eye Syndrome) Metoprolol Active Tablets 25mg 30tab Take 1/2 Nav Tartrate /0000 s Tablet By Dewayne Pearson MD Twice A Day (Hypertens ion) Crash Medication 11/18 Hx Nav Dewayne Arcos MD 11/18 Levaquin 08/29 Hx Tablets 750mg 5tabs Every Day - 06/25 Deltasone 08/29 Hx Tablets 50mg 5tabs Every Day - 06/25 Cefuroxime Axetil 05/27 Hx Tablets 500mg 20tab one by J20.9 Dorota s mouth P. - twice a Blegen, 06/25 day x 10 M.D. /2017 days for Bronchitis / Pneumonia Discontinue Xanax 02/17 Hx Nav Dewayne Arcos MD 05/27 Klonopin 02/12 Hx Tablets 0.5mg 30tab Take One s Tablet By Dewayne - Mouth AT MD 05/27 Bedtime MDD 1 Xanax 01/08 Hx Tablets 0.25mg 30tab 1 tab by F41.9 s mouth [place] - daily as MD 02/12 needed for sleep MDD 1 Benadryl Allergy 11/11 Hx Capsules 25mg 30cap 1 tab by Lisa Falk s mouth Levietmimiks - every MD 05/27 night. Stop taking the morning dose of benadryl. Benadryl 09/13 Hx Capsules 25mg 30cap 1 tab by Lisa Falk s mouth Levietmimiks - MD kevin 11/11 night. Stop taking the morning dose of benadryl. Benadryl 09/13 Hx Capsules 25mg 30cap 1 capsule Lisa s take by [place] - mouth q6 , 11/11 as needed. Hold scheduled evening dose if given within 6 hours. Discontinue Boost 05/28 Hx Dewayne - MD 06/24 Nystatin 05/13 Hx Cream 188322Yku 60gm apply t/GM twice a Heetderks - day to MD 06/24 rash in inguinal creases for 2 weeks Augmentin 05/05 Hx Tablets 500-125mg 42tab Twice s Daily - 06/24 Benadryl Allergy 04/21 Hx Tablets 25mg 30tab see s instructio Dewaynederks - ns as MD 05/27 needed for itching Benadryl Allergy 04/21 Hx Tablets 25mg 0900 - 06/24 Vicodin 04/21 Hx Tablets 5-300mg Discontinu e He[place]ks - medication MD 09/13 [place] PM 04/03 Hx Ointment 85-15% 3.5un apply (09/02 its in) both Heetderks - eyes every MD 09/13 (moisture) Prilosec Hx Capsules DR 20mg 30cap every day s Dewayne - MD 09/13 Benadryl 00 Hx Capsules 25mg Take one Unknown /0000 capsule by - mouth 06/24 morning. Hydrochlorothiazi Hx Tablets 25mg Take one Unknown de /0000 tablet by - mouth 05/13 every day. Boost / Hx Unknown /0000 - 05/28 Benadryl 00/00 Hx Capsules 25mg Take one Unknown /0000 capsule by - mouth as 06/24 needed in the afternoon. Zeasorb Hx Powder 71gm apply to Nav /0000 interspace He[place]derks - toes every , Bacitracin Hx Solution 5000U/ GM 1unit apply to Nav /0000 Rec s small Heetderks - cuts, MD 07/05 wounds needed Amoxicillin Hx Capsules 500mg 14cap 4 pills Nav /0000 s one hr. Dewayne - prior to MD 10/07 appt. Immunizations CPT Code Status Date Vaccine Lot # [id number] Given 06/25/2018 Hep B Vaccine Adult, 3 Dose age >20 yrs [id number] 04829 Given 06/15/2018 Influenza Virus Vaccine, Quadrivalent, 3 Yr > Quad, Preserv Free 76546 Given 06/04/2018 Influenza Virus Vaccine, Quadrivalent, 3 Yr > Quad, Preserv Free 50549 Given 01/01/2018 Hep B Vaccine Adult, 3 Dose age >20 yrs [id number] 56477 Given 01/01/2018 Menactra (meningococcal conjugate vaccine) [id number] 28208 Given 01/01/2018 Prevnar-13 Pneumococcal Conjugate Vaccine [id number] 28627 Given 01/01/2018 Menb - Serogroup B Meningococcal Vaccine(Trumenba) [id number] 77048 Given 06/26/2017 Zoster Vaccine [id number] 23299 Given 06/01/2017 Influenza Virus Vaccine, Quadrivalent, 3 Yr > Quad, Preserv Free 77546 Given 06/27/2016 Influenza Virus Vaccine, Quadrivalent, 3 Yr > Quad, Preserv Free 55862 Given 11/20/2009 Tdap (Adacel) Vital Signs Date Vital Result Comment 11/05/2018 12:54pm BP Systolic Lying Down 112 mmHg BP Diastolic Lying Down 67 mmHg Heart Rate 87 /min Respiratory Rate 18 /min O2 % BldC Oximetry 99 % 06/25/2018 9:11am Weight 97.00 lb Weight 43.999 kg BP Systolic 120 mmHg BP Diastolic 80 mmHg Body Temperature 98.7 F Respiratory Rate 20 /min 01/01/2018 11:14am BP Systolic 100 mmHg BP Diastolic 64 mmHg Heart Rate 98 /min Body Temperature 97.6 F Respiratory Rate 20 /min O2 % BldC Oximetry 94 % 11/14/2017 11:47am BP Systolic 108 mmHg BP Diastolic 78 mmHg Heart Rate 62 /min Body Temperature 98.7 F Respiratory Rate 18 /min O2 % BldC Oximetry 95 % 09/03/2017 11:43am BP Systolic 80 mmHg BP Diastolic 60 mmHg Heart Rate 106 /min Body Temperature 97.8 F O2 % BldC Oximetry 97 % 08/26/2017 10:14am BP Systolic 120 mmHg BP Diastolic 60 mmHg Heart Rate 64 /min Body Temperature 99.1 F Respiratory Rate 16 /min O2 % BldC Oximetry 95 % 06/26/2017 1:16pm BP Systolic 90 mmHg BP Diastolic 64 mmHg Heart Rate 64 /min Body Temperature 95.8 F Respiratory Rate 20 /min O2 % BldC Oximetry 99 % 05/27/2017 4:39pm BP Systolic 110 mmHg BP Diastolic 80 mmHg Heart Rate 100 /min Body Temperature 99.6 F Respiratory Rate 20 /min O2 % BldC Oximetry 94 % 01/23/2017 11:18am BP Systolic 100 mmHg BP Diastolic 66 mmHg Heart Rate 96 /min Body Temperature 97.8 F Respiratory Rate 16 /min O2 % BldC Oximetry 96 % 01/08/2017 9:46am BP Systolic 120 mmHg BP Diastolic 78 mmHg Heart Rate 72 /min Body Temperature 97.0 F Respiratory Rate 24 /min 12/20/2016 10:51am BP Systolic 90 mmHg BP Diastolic 60 mmHg Heart Rate 88 /min Body Temperature 97.6 F Respiratory Rate 20 /min O2 % BldC Oximetry 96 % 09/30/2016 4:58pm BP Systolic 112 mmHg BP Diastolic 84 mmHg Heart Rate 108 /min Body Temperature 99.2 F O2 % BldC Oximetry 95 % 09/13/2016 10:23am Weight 91.00 lb Per aide Weight 41.278 kg BP Systolic 88 mmHg BP Diastolic 66 mmHg Heart Rate 69 /min Body Temperature 97.3 F Respiratory Rate 12 /min O2 % BldC Oximetry 96 % 06/24/2016 1:18pm BP Systolic 96 mmHg BP Diastolic 60 mmHg Heart Rate 97 /min Body Temperature 96.4 F Respiratory Rate 18 /min O2 % BldC Oximetry 97 % 05/13/2016 10:12am BP Systolic 105 mmHg BP Diastolic 70 mmHg Heart Rate 80 /min Body Temperature 98.1 F O2 % BldC Oximetry 94 % 05/05/2016 12:00am BP Systolic 120 mmHg BP Diastolic 68 mmHg Heart Rate 102 /min Body Temperature 97.9 F Respiratory Rate 16 /min O2 % BldC Oximetry 99 % 04/26/2016 12:00am Weight 93.00 lb Weight 42.184 kg Height 68 inches BMI (Body Mass Index) 14.1 kg/m2 03/21/2016 10:00am BP Systolic 110 mmHg BP Diastolic 60 mmHg Heart Rate 91 /min Body Temperature 97.6 F Respiratory Rate 13 /min O2 % BldC Oximetry 98 % 02/12/2016 9:06am Weight 90.00 lb Weight 40.824 kg BP Systolic 122 mmHg BP Diastolic 87 mmHg Heart Rate 88 /min Body Temperature 95.9 F O2 % BldC Oximetry 98 % Results Test Date Facility Test Result H/L Range Note Inr/Protime [facility] Inr 1.22 High 0.77 -1.02 9 [phone] Laboratory test [facility] D Dimer 338 ng/ mL High Less Than 1 finding 9 [phone] Quantitative 230 B-Type Natriuretic Peptide BNP 262 pg/mL High <=100 Lactic Acid 2.1 mmol/L High 0.5-2.0 2 Comp Metabolic Panel 10/21/2018 [facility] Sodium 145 mmol/L N 135-145 [phone] Potassium 4.1 mmol/L N 3.5-5.0 Co2 Carbon Dioxide 23 mmol/L N 22-32 Glucose 144 mg/dL High 70-100 Blood Urea Nitrogen 40 mg/dL High 6-24 Creatinine 1.76 mg/dL High 0.67-1.17 BUN/Creatinine Ratio 22.7 High 8-20 Calcium 8.7 mg/dL N 8.6-10.3 Total Protein 6.9 g/dL N 6.4-8.9 Albumin 3.9 g/dL N 3.2-5.2 Globulin 3.0 g/dL N 2-4 Albumin/Globulin Ratio 1.3 N 1-3 Total Bilirubin 0.40 mg/dL N 0.2-1.0 Alkaline Phosphatase 114 U/L High 34-104 Alt 24 U/L N 7-52 Ast 39 U/L N 13-39 Egfr Non- 39.6 >60 Egfr 47.9 >60 3 Chloride 115 mmol/L High 101-111 Anion Gap 7 mmol/L N 2-11 Laboratory test 10/21/2018 [facility] Troponin-I (TnI ) 0.01 ng/mL <0.04 4 finding [phone] C Reactive Protein 62.46 mg/L High <8.01 Arterial Blood 10/21/2018 [facility] PH Arterial 7.23 Low 7.35-7.45 Gas [phone] Pco2 Arterial 45 mmHg N 35-45 Po2 Arterial 104 mmHg High 80-100 O2 Saturation Arterial 99.4 % High 94.0-98.0 Base Excess Arterial -8.6 mmol/L Low -2.0-2.0 5 Hco3 Arterial 18.2 mmol/L Low 19-31 CBC Auto Diff 10/21/2018 [facility] White Blood 5.7 10^3/uL N 3.5-10.8 [phone] Count Red Blood Count 4.17 10^6/uL N 4.00-5.40 Hemoglobin 13.3 g/dL Low 14.0-18.0 Hematocrit 41 % Low 42-52 Mean Corpuscular Volume 97 fL High 80-94 Mean Corpuscular Hemoglobin 32 pg High 27-31 Mean Corpuscular HGB Conc 33 g/dL N 31-36 Red Cell Distribution Width 16 % High 10.5-15 Platelet Count 59 10^3/uL Low 150-450 6 Mean Platelet Volume 12.8 fL High 7.4-10.4 Abs Neutrophils 4.3 10^3/uL N 1.5-7.7 Abs Lymphocytes 1.0 10^3/uL N 1.0-4.8 Abs Monocytes 0.2 10^3/uL N 0-0.8 Abs Eosinophils 0 10^3/uL N 0-0.6 Abs Basophils 0.1 10^3/uL N 0-0.2 Abs Nucleated RBC 0 10^3/uL Granulocyte % 76.6 % Lymphocyte % 18.3 % Monocyte % 4.2 % Eosinophil % 0 % Basophil % 0.9 % Nucleated Red Blood Cells % 0 Laboratory test 10/21/2018 [facility] Blood Culture SEE RESULT 7 finding [phone] BELOW Laboratory test 10/19/2018 [facility] Influenza A & B SEE RESULT 8 finding [phone] Request BELOW Inr/Protime 10/19/2018 [facility] Inr 1.42 High 0.77- [phone] 1.02 Laboratory test 10/19/2018 [facility] Partial Thrombo 32.2 seconds N 26.0- finding [phone] Time PTT 36.3 Laboratory test 10/19/2018 [facility] B-Type 207 pg/ mL High <=100 finding [phone] Natriuretic Peptide BNP CBC Auto Diff 10/19/2018 [facility] White Blood 5.9 10^3/uL N 3.5-5 [phone] Count 0.8 Red Blood Count 4.34 10^6/uL N 4.00-5.40 Hemoglobin 13.7 g/dL Low 14.0-18.0 Hematocrit 42 % N 42-52 Mean Corpuscular Volume 96 fL High 80-94 Mean Corpuscular Hemoglobin 32 pg High 27-31 Mean Corpuscular HGB Conc 33 g/dL N 31-36 Red Cell Distribution Width 16 % High 10.5-15 Platelet Count 45 10^3/uL Low 150-450 9 Mean Platelet Volume 11.6 fL High 7.4-10.4 Abs Neutrophils 5.0 10^3/uL N 1.5-7.7 Abs Lymphocytes 0.3 10^3/uL Low 1.0-4.8 Abs Monocytes 0.6 10^3/uL N 0-0.8 Abs Eosinophils 0 10^3/uL N 0-0.6 Abs Basophils 0 10^3/uL N 0-0.2 Abs Nucleated RBC 0 10^3/uL Granulocyte % 84.1 % Lymphocyte % 4.7 % Monocyte % 10.8 % Eosinophil % 0.1 % Basophil % 0.3 % Nucleated Red Blood Cells % 0.3 Comp Metabolic Panel 10/19/2018 [facility] Sodium 140 mmol/L N 135-145 [phone] Potassium 4.3 mmol/L N 3.5-5.0 Chloride 106 mmol/L N 101-111 Co2 Carbon Dioxide 27 mmol/L N 22-32 Anion Gap 7 mmol/L N 2-11 Glucose 153 mg/dL High 70-100 Blood Urea Nitrogen 40 mg/dL High 6-24 Creatinine 1.72 mg/dL High 0.67-1.17 BUN/Creatinine Ratio 23.3 High 8-20 Calcium 9.6 mg/dL N 8.6-10.3 Total Protein 7.6 g/dL N 6.4-8.9 Albumin 4.2 g/dL N 3.2-5.2 Globulin 3.4 g/dL N 2-4 Albumin/Globulin Ratio 1.2 N 1-3 Total Bilirubin 0.60 mg/dL N 0.2-1.0 Alkaline Phosphatase 104 U/L N 34-104 Alt 17 U/L N 7-52 Ast 21 U/L N 13-39 Egfr Non- 40.6 >60 Egfr 49.2 >60 10 Laboratory test 10/19/2018 [facility] C Reactive 116.92 mg/L High <8.01 finding [phone] Protein Troponin-I (TnI) 0.00 ng/mL <0.04 11 Lactic Acid 1.6 mmol/L N 0.5-2.0 12 Urinalysis Profile 10/19/2018 [facility] Urine Color Yellow [phone] Urine Appearance Cloudy Urine Specific [place] 1.011 N 1.010-1.030 Urine pH 6.0 N 5-9 Urine Urobilinogen Negative Negative Urine Ketones Negative Negative Urine Protein 1+(30 mg/dL) Abnormal Negative Urine Leukocytes 3+ Abnormal Negative Urine Blood 2+ Abnormal Negative * * Abnormal Negative 13 Urine Nitrite Negative Negative Urine Bilirubin Negative Negative Urine Glucose Negative Negative Urine White Blood Cell 3+(>20/hpf) Abnormal Absent Urine Red Blood Cell 3+(>10/hpf) Abnormal Absent Urine Bacteria 2+ Abnormal Absent Urine Culture 10/19/2018 [facility] Urine SEE RESULT 14 And [phone] Culture BELOW Sensitivities Laboratory test 10/19/2018 [facility] Influenza A POSITIVE Abnormal Negative 15 finding [phone] & B Molecular Laboratory test 10/19/2018 [facility] Pediatric SEE RESULT 16 finding [phone] Blood BELOW Culture CBC Auto Diff 09/24/2018 [facility] White Blood 7.1 N 3.5-10.8 [phone] Count 10^3/uL Red Blood Count 3.99 10^6/uL Low 4.00-5.40 Hemoglobin 12.5 g/dL Low 14.0-18.0 Hematocrit 38 % Low 42-52 Mean Corpuscular Volume 97 fL High 80-94 Mean Corpuscular Hemoglobin 32 pg High 27-31 Mean Corpuscular HGB Conc 33 g/dL N 31-36 Red Cell Distribution Width 16 % High 10.5-15 Platelet Count 95 10^3/uL Low 150-450 Mean Platelet Volume 12.2 fL High 7.4-10.4 Abs Neutrophils 5.6 10^3/uL N 1.5-7.7 Abs Lymphocytes 0.7 10^3/uL Low 1.0-4.8 Abs Monocytes 0.8 10^3/uL N 0-0.8 Abs Eosinophils 0 10^3/uL N 0-0.6 Abs Basophils 0 10^3/uL N 0-0.2 Abs Nucleated RBC 0 10^3/uL Granulocyte % 79.0 % Lymphocyte % 9.3 % Monocyte % 11.0 % Eosinophil % 0.1 % Basophil % 0.6 % Nucleated Red Blood Cells % 0 Laboratory test 06/25/2018 [facility] Ferritin 197.2 ng/mL N 24-336 17, 18 finding [phone] Comp Metabolic 06/17/2018 [facility] Sodium 143 mmol/ L N 135-145 Panel [phone] Potassium 4.6 mmol/L N 3.5-5.0 Chloride 107 mmol/L N 101-111 Co2 Carbon Dioxide 30 mmol/L N 22-32 Anion Gap 6 mmol/L N 2-11 Glucose 88 mg/dL N 70-100 Blood Urea Nitrogen 33 mg/dL High 6-24 Creatinine 1.46 mg/dL High 0.67-1.17 BUN/Creatinine Ratio 22.6 High 8-20 Calcium 9.3 mg/dL N 8.6-10.3 Total Protein 6.4 g/dL N 6.4-8.9 Albumin 4.1 g/dL N 3.2-5.2 Globulin 2.3 g/dL N 2-4 Albumin/Globulin Ratio 1.8 N 1-3 Total Bilirubin 0.50 mg/dL N 0.2-1.0 Alkaline Phosphatase 105 U/L High 34-104 Alt 19 U/L N 7-52 Ast 19 U/L N 13-39 Egfr Non- 49.1 >60 Egfr 59.4 >60 19 CBC Auto Diff 06/17/2018 [facility] White Blood 4.2 10^3/uL N 3.5-10.8 [phone] Count Red Blood Count 4.32 10^6/uL N 4.00-5.40 Hemoglobin 14.2 g/dL N 14.0-18.0 Hematocrit 42 % N 42-52 Mean Corpuscular Volume 98 fL High 80-94 Mean Corpuscular Hemoglobin 33 pg High 27-31 Mean Corpuscular HGB Conc 34 g/dL N 31-36 Red Cell Distribution Width 15 % N 10.5-15 Abs Neutrophils 2.6 10^3/uL N 1.5-7.7 Abs Lymphocytes 0.9 10^3/uL Low 1.0-4.8 Abs Monocytes 0.6 10^3/uL N 0-0.8 Abs Eosinophils 0 10^3/uL N 0-0.6 Abs Basophils 0 10^3/uL N 0-0.2 Abs Nucleated RBC 0 10^3/uL Granulocyte % 61.2 % N 38-83 Lymphocyte % 22.6 % Low 25-47 Monocyte % 14.5 % High 0-7 Eosinophil % 1.1 % N 0-6 Basophil % 0.6 % N 0-2 Nucleated Red Blood Cells % 0.1 Platelet Count 45 10^3/uL Low 150-450 Mean Platelet Volume 12.3 um3 High 7.4-10.4 CBC Auto Diff 03/31/2018 [facility] White Blood 3.6 10^3/uL N 3.5-10.8 [phone] Count Red Blood Count 4.11 10^6/uL N 4.00-5.40 Hemoglobin 13.2 g/dL Low 14.0-18.0 Hematocrit 40 % Low 42-52 Mean Corpuscular Volume 97 fL High 80-94 Mean Corpuscular Hemoglobin 32 pg High 27-31 Mean Corpuscular HGB Conc 33 g/dL N 31-36 Red Cell Distribution Width 16 % High 10.5-15 Platelet Count 49 10^3/uL Low 150-450 Mean Platelet Volume 11.7 um3 High 7.4-10.4 Abs Neutrophils 2.0 10^3/uL N 1.5-7.7 Abs Lymphocytes 0.8 10^3/uL Low 1.0-4.8 Abs Monocytes 0.7 10^3/uL N 0-0.8 Abs Eosinophils 0.1 10^3/uL N 0-0.6 Abs Basophils 0 10^3/uL N 0-0.2 Abs Nucleated RBC 0 10^3/uL Granulocyte % 56.9 % N 38-83 Lymphocyte % 21.4 % Low 25-47 Monocyte % 18.8 % High 0-7 Eosinophil % 2.3 % N 0-6 Basophil % 0.6 % N 0-2 Nucleated Red Blood Cells % 0.1 Giant Platelets Present CBC Auto Diff 03/03/2018 [facility] White Blood 4.4 10^3/uL N 3.5-10.8 [phone] Count Red Blood Count 3.87 10^6/uL Low 4.00-5.40 Hemoglobin 12.5 g/dL Low 14.0-18.0 Hematocrit 37 % Low 42-52 Mean Corpuscular Volume 97 fL High 80-94 Mean Corpuscular Hemoglobin 32 pg High 27-31 Mean Corpuscular HGB Conc 33 g/dL N 31-36 Red Cell Distribution Width 16 % High 10.5-15 Abs Neutrophils 3.0 10^3/uL N 1.5-7.7 Platelet Count 52 10^3/uL Low 150-450 20 Mean Platelet Volume 11.8 um3 High 7.4-10.4 Abs Lymphocytes 0.7 10^3/uL Low 1.0-4.8 Abs Monocytes 0.7 10^3/uL N 0-0.8 Abs Eosinophils 0 10^3/uL N 0-0.6 Abs Basophils 0 10^3/uL N 0-0.2 Abs Nucleated RBC 0 10^3/uL Granulocyte % 68.2 % N 38-83 Lymphocyte % 14.9 % Low 25-47 Monocyte % 15.4 % High 0-7 Eosinophil % 1.1 % N 0-6 Basophil % 0.4 % N 0-2 Nucleated Red Blood Cells % 0.1 CBC Auto Diff 02/03/2018 [facility] White Blood 3.5 10^3/uL N 3.5-10.8 [phone] Count Red Blood Count 3.86 10^6/uL Low 4.0-5.4 Hemoglobin 12.6 g/dL Low 14.0-18.0 Hematocrit 38 % Low 42-52 Mean Corpuscular Volume 97 fL High 80-94 Mean Corpuscular Hemoglobin 33 pg High 27-31 Mean Corpuscular HGB Conc 34 g/dL N 31-36 Red Cell Distribution Width 17 % High 10.5-15 Abs Neutrophils 2.5 10^3/uL N 1.5-7.7 Platelet Count 56 10^3/uL Low 150-450 Mean Platelet Volume 13.2 um3 High 7.4-10.4 Giant Platelets Present Abs Lymphocytes 0.5 10^3/uL Low 1.0-4.8 Abs Monocytes 0.6 10^3/uL N 0-0.8 Abs Eosinophils 0 10^3/uL N 0-0.6 Abs Basophils 0 10^3/uL N 0-0.2 Abs Nucleated RBC 0 10^3/uL Granulocyte % 69.9 % N 38-83 Lymphocyte % 13.1 % Low 25-47 Monocyte % 15.8 % High 0-7 Eosinophil % 0.9 % N 0-6 Basophil % 0.3 % N 0-2 Nucleated Red Blood Cells % 0.1 CBC Auto Diff 01/06/2018 [facility] White Blood 6.7 10^3/uL N 3.5-10.8 [phone] Count Red Blood Count 3.77 10^6/uL Low 4.0-5.4 Hemoglobin 12.3 g/dL Low 14.0-18.0 Hematocrit 37 % Low 42-52 Mean Corpuscular Volume 98 fL High 80-94 Mean Corpuscular Hemoglobin 33 pg High 27-31 Mean Corpuscular HGB Conc 33 g/dL N 31-36 Red Cell Distribution Width 14 % N 10.5-15 Platelet Count 74 10^3/uL Low 150-450 21 Mean Platelet Volume 12.9 um3 High 7.4-10.4 Abs Neutrophils 4.9 10^3/uL N 1.5-7.7 Giant Platelets Present Abs Lymphocytes 0.6 10^3/uL Low 1.0-4.8 Abs Monocytes 1.1 10^3/uL High 0-0.8 Abs Eosinophils 0.1 10^3/uL N 0-0.6 Abs Basophils 0 10^3/uL N 0-0.2 Abs Nucleated RBC 0 10^3/uL Granulocyte % 72.9 % N 38-83 Lymphocyte % 9.5 % Low 25-47 Monocyte % 16.2 % High 0-7 Eosinophil % 1.0 % N 0-6 Basophil % 0.4 % N 0-2 Nucleated Red Blood Cells % 0 CBC Auto Diff 12/08/2017 [facility] Laboratory White Blood 4.5 10^3/uL N 3.5-10.8 [phone] Count Red Blood Count 3.97 10^6/uL Low 4.0-5.4 Hemoglobin 13.1 g/dL Low 14.0-18.0 Hematocrit 39 % Low 42-52 Mean Corpuscular Volume 98 fL High 80-94 Mean Corpuscular Hemoglobin 33 pg High 27-31 Mean Corpuscular HGB Conc 34 g/dL N 31-36 Red Cell Distribution Width 15 % N 10.5-15 Abs Neutrophils 3.3 10^3/uL N 1.5-7.7 Platelet Count 52 10^3/uL Low 150-450 Mean Platelet Volume 12.1 um3 High 7.4-10.4 Giant Platelets Present Abs Lymphocytes 0.5 10^3/uL Low 1.0-4.8 Abs Monocytes 0.7 10^3/uL N 0-0.8 Abs Eosinophils 0 10^3/uL N 0-0.6 Abs Basophils 0 10^3/uL N 0-0.2 Abs Nucleated RBC 0 10^3/uL Granulocyte % 72.6 % N 38-83 Lymphocyte % 11.9 % Low 25-47 Monocyte % 14.5 % High 0-7 Eosinophil % 0.6 % N 0-6 Basophil % 0.4 % N 0-2 Nucleated Red Blood Cells % 0.1 Leukemia/Lymphoma 12/08/2017 [facility] Path Interpretation TNP Phenot [phone] 2-8 Marker Path Interpret 9-15 Marker TNP Path Interpret > 16 Marker (SEE NOTE) 22 Myelodysplastic 12/08/2017 [facility] FMDS Specimen Bone Marrow Syndrome,Fish [phone] FMDS Disclaimer See Comment 23 FMDS Released By See Comment 24 FMDS Reason for Referral See Comment 25 FMDS Method See Comment 26 FMDS Result See Comment 27 FMDS Result Summary Normal FMDS Result Table See Comment 28 FMDS Interpretation See Comment 29 Bone Marrow 12/08/2017 [facility] BM Result Normal Chromosomes [phone] Summary BM Chromosome Specimen Bone Marrow BM Referral Reason See Comment 30 BM Chromosome Method See Comment 31 BM Chromo Banding Method See Comment 32 BM Cromosome Results 46,XY[20] BM Chromosome Interpretation See Comment 33 Released By See Comment 34 Laboratory test 11/26/2017 [facility] LDH 165 U/L N 140-271 finding [phone] Comp Metabolic Panel 11/26/2017 [facility] Sodium 141 mmol/L N 139-145 [phone] Potassium 4.1 mmol/L N 3.5-5.0 Chloride 104 mmol/L N 101-111 Co2 Carbon Dioxide 27 mmol/L N 22-32 Anion Gap 10 mmol/L N 2-11 Glucose 112 mg/dL High 70-100 Blood Urea Nitrogen 37 mg/dL High 6-24 Creatinine 1.17 mg/dL N 0.67-1.17 BUN/Creatinine Ratio 31.6 High 8-20 Calcium 9.9 mg/dL N 8.6-10.3 Total Protein 7.4 g/dL N 6.4-8.9 Albumin 4.3 g/dL N 3.2-5.2 Globulin 3.1 g/dL N 2-4 Albumin/Globulin Ratio 1.4 N 1-3 Total Bilirubin 0.50 mg/dL N 0.2-1.0 Alkaline Phosphatase 85 U/L N 34-104 Alt 12 U/L N 7-52 Ast 17 U/L N 13-39 Egfr Non- 63.6 >60 Egfr 81.8 >60 35 Laboratory test 11/26/2017 [facility] C Reactive 3.83 mg/L N < 5.00 36 finding [phone] Protein Beta 2 Microglobulin 4.55 g/mL Abnormal 37 [place]/Lambda Free 11/26/2017 [facility] [place] Free 1.96 mg/dL Abnormal 38 Light Chains Ser [phone] Light Chain Lambda Free Light Chain 1.60 mg/dL 39 [place]/Lambda Free Light Chain 1.23 40 Protein 11/26/2017 [facility] Total 7.3 g/dL 6.3 - Electrophoresis [phone] Protein(Pep) 7.9 Albumin 3.6 g/dL 3.4-4.7 Alpha-1 Globulin 0.3 g/dL 0.1-0.3 Alpha-2 Globulin 0.8 g/dL 0.6-1.0 Beta Globulin 1.0 g/dL 0.7-1.2 Gamma Globulin 1.6 g/dL 0.6-1.6 Albumin/Globulin Ratio 0.97 Impression See Comment 41 CBC Auto Diff 11/26/2017 [facility] White Blood 5.5 10^3/uL N 3.5-10.8 [phone] Count Red Blood Count 4.28 10^6/uL N 4.0-5.4 Hemoglobin 14.0 g/dL N 14.0-18.0 Hematocrit 42 % N 42-52 Mean Corpuscular Volume 98 fL High 80-94 Mean Corpuscular Hemoglobin 33 pg High 27-31 Mean Corpuscular HGB Conc 33 g/dL N 31-36 Red Cell Distribution Width 15 % N 10.5-15 Abs Neutrophils 4.3 10^3/uL N 1.5-7.7 Abs Lymphocytes 0.6 10^3/uL Low 1.0-4.8 Abs Monocytes 0.6 10^3/uL N 0-0.8 Abs Eosinophils 0 10^3/uL N 0-0.6 Abs Basophils 0 10^3/uL N 0-0.2 Platelet Count 61 10^3/uL Low 150-450 Mean Platelet Volume 12.3 um3 High 7.4-10.4 Manual Differential 11/26/2017 [facility] Neutrophil % 79 % N 38-83 [phone] Lymphocytes % 9 % Low 25-47 Monocytes % 12 % High 0-7 Eosinophils % 0 % N 0-6 Basophil % 0 % N 0-2 Abs Neutrophils 4.3 10^3/uL N 1.5-7.7 Abs Lymphocytes 0.5 10^3/uL Low 1.0-4.8 Abs Monocytes 0.7 10^3/uL N 0-0.8 Abs Eosinophils 0 10^3/uL N 0-0.6 Abs Basophils 0 10^3/uL N 0-0.2 RBC Morphology Normal Normal Laboratory test 11/26/2017 [facility] Pathologist ( SEE NOTE) 42 finding [phone] Review Istat 11/05/2017 [facility] Poc Bun Mainct 35 mg/dL High 9-18 BUN/Crea/Egfr/V [phone] Mainct Poc Crea Mainct 1.3 mg/dL High 0.6-0.9 GFR Non- MCT 56.3 >60 GFR Mainct 72.4 >60 43 Iron & Iron Binding 09/03/2017 [facility] Iron 94 g /dL N 50-212 Capacity [phone] Unsaturated Iron Binding 127 g/dL Total Iron Binding Capacity 221 g/dL Low 250-450 % Iron Saturation 43 % N 15-55 Laboratory 09/03/2017 [facility] Ferritin 143.8 ng/ mL N 24-336 44 test finding [phone] Laboratory 08/29/2017 [facility] Blood Culture SEE RESULT 45, 46 test finding [phone] BELOW Laboratory 08/29/2017 [facility] Influenza A & SEE RESULT 47 test finding [phone] Request BELOW Rapid 08/29/2017 [facility] Influenza A NEGATIVE Negative 48 Influenza A & [phone] Molecular B Molecular Influenza B Molecular NEGATIVE Negative Laboratory test 08/29/2017 [facility] Blood Culture SEE RESULT 49 finding [phone] BELOW Comp Metabolic 08/29/2017 [facility] Sodium 136 mmol/ L N 133-14 Panel [phone] Potassium 4.6 mmol/L N 3.5-5.0 Chloride 103 mmol/L N 101-111 Co2 Carbon Dioxide 28 mmol/L N 22-32 Anion Gap 5 mmol/L N 2-11 Glucose 115 mg/dL High 70-100 Blood Urea Nitrogen 31 mg/dL High 6-24 Creatinine 1.22 mg/dL High 0.67-1.17 BUN/Creatinine Ratio 25.4 High 8-20 Calcium 9.6 mg/dL N 8.6-10.3 Total Protein 7.6 g/dL N 6.4-8.9 Albumin 3.8 g/dL N 3.2-5.2 Globulin 3.8 g/dL N 2-4 Albumin/Globulin Ratio 1.0 N 1-3 Total Bilirubin 0.50 mg/dL N 0.2-1.0 Alkaline Phosphatase 104 U/L N 34-104 Alt 12 U/L N 7-52 Ast 16 U/L N 13-39 Egfr Non- 60.6 >60 Egfr 77.9 >60 50 CBC No Diff 08/29/2017 [facility] White Blood 10.9 10 ^3/uL High 3.5-10.8 [phone] Count Red Blood Count 4.49 10^6/uL N 4.0-5.4 Hemoglobin 14.3 g/dL N 14.0-18.0 Hematocrit 43 % N 42-52 Mean Corpuscular Volume 95 fL High 80-94 Mean Corpuscular Hemoglobin 32 pg High 27-31 Mean Corpuscular HGB Conc 33 g/dL N 31-36 Red Cell Distribution Width 16 % High 10.5-15 Platelet Count 82 10^3/uL Low 150-450 Mean Platelet Volume 12 um3 High 7.4-10.4 Lipid Profile 06/26/2017 [facility] Triglycerides 92 mg/dL N 51 (Trig/Chol/HDL) [phone] Cholesterol 110 mg/dL N 52 HDL Cholesterol 42.1 mg/dL N 53 LDL Cholesterol 50 mg/dL N 54 HIV 1/2 AB 06/26/2017 [facility] HIV 1 2 Nonreactive N Nonreactive 55 Evaluation [phone] Antibody Laboratory 06/26/2017 [facility] Hepatitis C Nonreactive N Nonreactive 56 test finding [phone] Antibody CBC Auto Diff 06/26/2017 [facility] White Blood 5.4 10^3/uL N 3.5-10.8 [phone] Count Red Blood Count 4.12 10^6/uL N 4.0-5.4 Hemoglobin 12.9 g/dL Low 14.0-18.0 Hematocrit 39 % Low 42-52 Mean Corpuscular Volume 95 fL High 80-94 Mean Corpuscular Hemoglobin 31 pg N 27-31 Mean Corpuscular HGB Conc 33 g/dL N 31-36 Red Cell Distribution Width 15 % N 10.5-15 Platelet Count 100 10^3/uL Low 150-450 Mean Platelet Volume 13 um3 High 7.4-10.4 Abs Neutrophils 3.9 10^3/uL N 1.5-7.7 Abs Lymphocytes 0.7 10^3/uL Low 1.0-4.8 Abs Monocytes 0.7 10^3/uL N 0-0.8 Abs Eosinophils 0 10^3/uL N 0-0.6 Abs Basophils 0 10^3/uL N 0-0.2 Abs Nucleated RBC 0 10^3/uL N Granulocyte % 72.3 % N 38-83 Lymphocyte % 12.4 % Low 25-47 Monocyte % 13.7 % High 1-9 Eosinophil % 0.9 % N 0-6 Basophil % 0.7 % N 0-2 Nucleated Red Blood Cells % 0 N Basic Metabolic 06/26/2017 [facility] Sodium 134 mmol /L N 133-145 Panel [phone] Potassium 4.5 mmol/L N 3.5-5.0 Chloride 100 mmol/L Low 101-111 Co2 Carbon Dioxide 28 mmol/L N 22-32 Anion Gap 6 mmol/L N 2-11 Glucose 99 mg/dL N 70-100 Blood Urea Nitrogen 28 mg/dL High 6-24 Creatinine 1.13 mg/dL N 0.67-1.17 BUN/Creatinine Ratio 24.8 High 8-20 Calcium 9.2 mg/dL N 8.6-10.3 Egfr Non- 66.2 N >60 Egfr 85.1 N >60 57 Cell Morphology 06/26/2017 [facility] Platelet Morphology Large N [phone] RBC Morphology Normal N Normal Flu Test A, B, Or A & B,Binaxn 05/27/2017 [facility] Influenza A Antigen NEG [phone] Influenza B Antigen NEG Creatinine 05/14/2017 [facility] Creatinine 1.25 mg/ dL High 0.67-1.17 [phone] Egfr Non- 58.9 N >60 Egfr 75.8 N >60 58 Laboratory test 05/14/2017 [facility] Blood Urea 23 mg/dL N 6-24 finding [phone] Nitrogen BUN Laboratory Studies 05/03/2016 N2N/CCD Import Anion Gap 2 mmol/L 2-11 BUN/Creatinine Ratio 16.7 8-20 Blood Urea Nitrogen 18 mg/dL 6-24 Calcium Level 8.3 mg/dL Low 8.6-10.3 Carbon Dioxide Level 27 mmol/L 22-32 Chloride Level 106 mmol/L 101-111 Creatinine 1.08 mg/dL 0.67-1.17 Estimated GFR () 90.0 Estimated GFR (Non- 70.0 Glucose Level 86 mg/dL 70-100 Potassium Level 4.8 mmol/L 3.5-5.0 Sodium Level 135 mmol/L 133-145 Comp Metabolic 04/21/2016 [facility] Sodium 132 mmol/ L Low 133-145 Panel [phone] Potassium 4.9 mmol/L N 3.5-5.0 Chloride 100 mmol/L Low 101-111 Co2 Carbon Dioxide 22 mmol/L N 22-32 Anion Gap 10 mmol/L N 2-11 Glucose 92 mg/dL N 70-100 Blood Urea Nitrogen 52 mg/dL High 6-24 Creatinine 2.64 mg/dL High 0.67-1.17 BUN/Creatinine Ratio 19.7 N 8-20 Calcium 9.6 mg/dL N 8.6-10.3 Total Protein 7.6 g/dL N 6.4-8.9 Albumin 3.6 g/dL N 3.2-5.2 Globulin 4.0 g/dL N 2-4 Albumin/Globulin Ratio 0.9 Low 1-3 Total Bilirubin 0.80 mg/dL N 0.2-1.0 Alkaline Phosphatase 84 U/L N 34-104 Alt 17 U/L N 7-52 Ast 44 U/L High 13-39 Egfr Non- 24.9 N >60 Egfr 32.1 N >60 59 CBC Auto 04/21/2016 [facility] White Blood 11.4 10^3/ uL High 3.5-10.8 Diff [phone] Count Red Blood Count 4.18 10^6/uL N 4.0-5.4 Hemoglobin 12.4 g/dL Low 14.0-18.0 Hematocrit 38 % Low 42-52 Mean Corpuscular Volume 91 fL N 80-94 Mean Corpuscular Hemoglobin 30 pg N 27-31 Mean Corpuscular HGB Conc 33 g/dL N 31-36 Red Cell Distribution Width 16 % High 10.5-15 Platelet Count 112 10^3/uL Low 150-450 Mean Platelet Volume 13 um3 High 7.4-10.4 Abs Neutrophils 9.7 10^3/uL High 1.5-7.7 Abs Lymphocytes 0.4 10^3/uL Low 1.0-4.8 Abs Monocytes 1.2 10^3/uL High 0-0.8 Abs Eosinophils 0 10^3/uL N 0-0.6 Abs Basophils 0.1 10^3/uL N 0-0.2 Abs Nucleated RBC 0 10^3/uL N Granulocyte % 85.6 % High 38-83 Lymphocyte % 3.3 % Low 25-47 Monocyte % 10.7 % High 1-9 Eosinophil % 0 % N 0-6 Basophil % 0.4 % N 0-2 Nucleated Red Blood Cells % 0 N Laboratory test 04/21/2016 [facility] Lactic Acid 2.9 mmol/L High 0.5-2.0 60 finding [phone] Laboratory test 04/21/2016 [facility] Troponin-I 0.03 ng/mL High <0.03 61 finding [phone] (TnI) Inr/Protime 04/21/2016 [facility] Inr 1.46 High 0.89-1.11 [phone] Laboratory test 04/21/2016 [facility] Partial Thrombo 28.1 N 26.0-36.3 finding [phone] Time PTT seconds Manual 04/21/2016 [facility] Immature 22 % High 0- 9 Differential [phone] Granulocytes Neutrophil % 69 % N 38-83 Band % 20 % High 0-8 Monocytes % 9 % N 0-13 Metamyelocytes % 2 % N 0-2 Hypochromasia 1+ N Ruma Cells 2+ N Acanthocytes 1+ N Urinalysis Profile 04/21/2016 [facility] Urine Color Flor N [phone] Urine Appearance Cloudy N Urine Specific [place] 1.012 N 1.010-1.030 Urine pH 5.0 N 5-9 Urine Urobilinogen Negative N Negative Urine Ketones Negative N Negative Urine Protein 1+(30 mg/dL) Abnormal Negative Urine Leukocytes 3+ Abnormal Negative Urine Blood 3+ Abnormal Negative Urine Nitrite Negative N Negative Urine Bilirubin Negative N Negative Urine Glucose Negative N Negative Urine White Blood Cell 3+(>20/hpf) Abnormal Absent Urine Red Blood Cell 3+(>10/hpf) Abnormal Absent Urine Bacteria 2+ Abnormal Absent Urine Squamous Epithelial Cell Present Abnormal Absent Laboratory test 04/21/2016 [facility] Blood Culture SEE RESULT 62 finding [phone] BELOW Urine Culture SEE RESULT BELOW 63 Laboratory test 03/05/2016 [facility] C Difficile PCR SEE RESULT 64 finding [phone] BELOW 1 Please note: The following may produce a false positive D Dimer test: - Rheumatoid factor greater than 60 IU/ml - Plasma hemoglobin greater than 0.05 gm/dl - Bilirubin greater than 50 mg/dl - Lipids greater than 1000 mg/dl - FDP greater than 20 ug/ml 2 Critical Result LACT:2.[address] JEAN-BAPTISTE at: 16:32:19 by:[id number] Read back by:DR JEAN-BAPTISTE [facility] Severe Sepsis and Septic Shock Management Bundle Measure requires all lactic acids initially measuring >2.0 mmol/L be repeated. 3 Because ethnic data is not always readily [...] 15-29 5 Kidney failure <15 (or dialysis) 4 Troponin-I testing on Plasma Separator Tubes (PST) has a known false positive rate of 0.20-0.40%. All positive troponins reflex immediate secondary confirmatory testing. 5 Reference ranges based on room air. 6 Platelet count confirmed by estimate Consistent with Previous Results Reported on 10/19/18. 7 SEE RESULT BELOW Name: OCTAVIO ARREGUIN : [address]: Steve Oliveira MD Acct: [id number] Unit: [id number] AGE: 63 Location: ICU [id number] Re10/21/18 SEX: M Status: ADM IN SPEC: [id number] BETTY: 10/21/18 [facility] DR: Rosendo ALVARADO REQ: [id number] RECD: 10/21/18 STATUS: LUIS MIGUEL LAGOS DR: Nav Buchanan MD _ SOURCE: BLOOD,VENO SPDESC: ORDERED: Blood Cult Procedure Result Reported Site Aerobic Culture Bottle Final 10/26/18- 1637 ML No Growth Day 5 Anaerobic Culture Bottle Final 10/26/18- 1637 ML No Growth Day 5 * ML - Main Lab . END OF REPORT DEPARTMENT OF PATHOLOGY, [address] [place] [address] Christian Olivares M.D. Director [place] # [id number] SEE RESULT BELOW Name: OCTAVIO ARREGUIN : [address]: Sia Garcia MD Acct: [id number] Unit: [id number] AGE: 63 Location: ED Re10/19/18 SEX: M Status: REG ER SPEC: [id number] BETTY: 10/19/18-UNK [place] DR: Gumaro Jean-Baptiste MD REQ: [id number] RECD: 10/19/18 STATUS: LUIS MIGUEL LAGOS DR: Nav Buchanan MD _ SOURCE: NASAL SPDESC: ORDERED: Flu A B Request Procedure Result Reported Site Rapid Influenza A B Request Final 10/19/181928 ML Specimen received for Influenza A/B Molecular testing * ML - Main Lab . END OF REPORT DEPARTMENT OF PATHOLOGY, [address] [place] [address] Christian Olivares M.D. Director [facility] # [id number] 9 Platelet count confirmed by estimate Consistent with Previous Results Reported on 06/17/18. 10 Because ethnic data is not always [...] 5 Kidney failure <15 (or dialysis) 11 Troponin-I testing on Plasma Separator Tubes (PST) has a known false positive rate of 0.20-0.40%. All positive troponins reflex immediate secondary confirmatory testing. 12 [facility] Severe Sepsis and Septic Shock Management Bundle Measure requires all lactic acids initially measuring >2.0 mmol/L be repeated. 13 *Ascorbic acid is present which may interfere with detection of blood. 14 SEE RESULT BELOW Name: OTCAVIO ARREGUIN : [address]: Reyes Mcclain MD Acct: [id number] Unit: [id number] AGE: 63 Location: [place] [address] Re10/19/18 Dis: 10/20/18 SEX: M Status: DIS IN SPEC: [id number] BETTY: 10/19/[address]: Sergio Garcia MD REQ: [id number] RECD: 10/19/18 STATUS: LUIS MIGUEL LAGOS DR: [facility] Nav Buchanan MD _ SOURCE: URINE SPDESC: ORDERED: Urine Culture Procedure Result Reported Site Urine Culture Final 10/21/1818 ML Organism 1 KLEBSIELLA PNEUMONIAE [place] Count >100,000 (Many) CFU/ML 1. KLEBSIELLA PNEUMONIAE [...] any additional antibiotic reporting. * ML - Main Lab . END OF REPORT DEPARTMENT OF PATHOLOGY, [address] [place] [address] Christian Olivares M.D. Director [facility] # [id number] 15 Powder Mill Operator: [id number] 16 SEE RESULT BELOW Name: OCTAVIO ARREGUIN : [address]: Reyes Mcclain MD Acct: [id number] Unit: [id number] AGE: 63 Location: [place] [address] Re10/19/18 Dis: 10/20/18 SEX: M Status: DIS IN SPEC: [id number] BETTY: 10/19/[address]: Sergio Garcia MD REQ: [id number] RECD: 10/19/18 STATUS: LUIS MIGUEL LAGOS DR: [facility] Nva Buchanan MD _ SOURCE: BLOOD,VENO SPDESC: ORDERED: Blood Cult, Pediatric Bottl Procedure Result Reported Site Pediatric Blood Culture Final 10/24/18- 1942 ML No Growth Day 5 * ML - [facility] . END OF REPORT DEPARTMENT OF PATHOLOGY, [address] [place] [address] Christian Olivares M.D. 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 Interpretative data: Blasts: 1% of gated events Lymphocytes: 10% of gated events B-cells: 18% of lymphs; kappa-restricted, CD10 negative, CD5 negative, CD23 negative, CD38 negative, CD22 positive, CD103 negative, CD11c negative T-cells/NK cells: No aberrant population detected. Markers tested: CD3, CD10, CD16, CD19, CD34, CD45, kappa surface light chains, lambda surface light chains, 7-AAD, CD5, CD11c, CD20, CD200, CD22, CD23, CD38, CD103. Quality Assessment: Acceptable Viability: Acceptable Viable lymphocytes (7-AAD): 80% Specimen received within validated guidelines. A Garcia-Giemsa stained slide prepared from the flow cytometry specimen was examined for quality purposes. Electronically signed by: Kelly Rivas MD 12/09/17 1800 Technical component performed by: [place] [address] Gamemaster: Randy Oviedo II, MD, PhD. 23 Applicable to Analyte Specific Reagent (ASR) and Laboratory Developed Tests (LDT). This test was developed and its performance characteristics determined by [facility] in a manner consistent with CLIA requirements. It has not been cleared or approved by the U.S. Food and Drug Administration. This FISH test does not rule out other chromosome abnormalities. 24 RESULT: Christian Herman, Ph.D. Test Performed by: [place] [address] 25 RESULT: Disease of spleen, unspecified 26 Locus and probes [Strategy;#Nuclei;Class] 3q21(RPN1),3q26.2(MECOM) [DFISH;500;LDT] 5p15.2(R2I142),5q31(EGR1) [COPY#;200;ASR] 7CEN(D7Z1),7q31(D1S538) [COPY#;200;ASR] 8CEN(D8Z2),8q24.1(MYC) [COPY#;200;ASR] 11p15.4(3'NUP98,5'NUP98) [BAP;200;LDT] 11q23(5'MLL[KMT2A],3'MLL[KMT2A]) [BAP;200;ASR] 13q14.3(U23B517),13q34(LAMP1) [COPY#;200;ASR] 17p13(TP53),17CEN(D17Z1) [COPY#;200;ASR] 20q12(M07K767),20qter [COPY#;200;ASR] Probe strategies include: DFISH=dual color, double fusion; BAP=break-apart probe; COPY#=region gain and loss. 27 RESULT: Interphase FISH is normal for all loci studied. 28 Abnormality Name Result Abn Cutoff (%) (%) inv(3) RPN1/MECOM fusion Normal <0.6 -5q31(U1V701y2,EGR1x1) Normal <9.5 -5(P0F450,EGR1)x1 Normal <3.5 -7q31(D7Z1x2,L2T659q4) Normal <4.5 -7(D7Z1,N3H972)x1 Normal <3.5 +8(D8Z2,MYC)x3 Normal <2.5 -13q14.3(I84C286r7,GXIX4x1) Normal <7.0 -13q14.3x2(E23A933d0,JEOB0u0) Normal <1.5 -20q12(M63X082u6,45itruj0) Normal <9.5 11q23(MLL sep) Normal <4.0 -17p13.1(TP53x1,C84M8f2) Normal <9.5 -17(TP53,D17Z1)x1 Normal <5.5 11p15.4(NUP98 sep) Normal <15.5 29 This result is within normal limits for the MDS FISH panel. Additional cytogenetic studies are reported separately. 30 RESULT: Disease of spleen, unspecified 31 RESULT: Culture without mitogens 32 Band Resolution: 400 Stain Name Cells Analyzed Cells Karyograms Counted Prepared GTL 20 0 2 Total 20 0 2 Garcia to Stain Name: GTL=G-banding; QFQ=Q-banding; DAPI=DAPI-staining; CBL=C-banding; AGNOR=Silver-staining; NON=Non-banded The sum of Cells Analyzed and Cells Counted equals the total cells examined. 33 No clonal abnormality was apparent. Additional cytogenetic studies are reported separately. 34 RESULT: Jenna Chun M.D. Test Performed by: [address] [address] 35 Because ethnic data is not always readily [...] 15-29 5 Kidney failure <15 (or dialysis) 36 Acute inflammation: >10.00 37 REFERENCE VALUE 1.21 - 2.70 Test Performed by: [place] [address] 38 REFERENCE VALUE 0.3300-1.94 39 REFERENCE VALUE 0.5700-2.63 40 REFERENCE VALUE 0.2600-1.65 Test Performed by: [place] [address] 41 RESULT: No apparent monoclonal protein on serum electrophoresis. Test Performed by: [place] [address] 42 Moderate thrombocytopenia. Reviewed by Kelly Rivas MD 43 Because ethnic data is not always readily [...] 15-29 5 Kidney failure <15 (or dialysis) 44 [id number] COLLECTED FROM [facility] 46 SEE RESULT BELOW Name: OCTAVIO ARREGUIN : [address]: Marcial Vazquez MD Acct: [id number] Unit: [id number] AGE: 62 Location: ED Re08/29/17 SEX: M Status: DEP ER SPEC: [id number] BETTY: 08/29/17-1705 [facility] DR: Marcial Vazquez MD REQ: [id number] RECD: 08/29/17 STATUS: LUIS MIGUEL LAGOS DR: Nav Buchanan MD _ SOURCE: BLOOD,VENO SPDESC: ORDERED: Blood Cult COMMENTS: COLLECTED FROM [facility] Procedure Result Reported Site Aerobic Culture Bottle Final 09/03/17- 1718 ML No Growth Day 5 Anaerobic Culture Bottle Final 09/03/17- 1718 ML No Growth Day 5 * ML - MAIN LAB ([facility]) . END OF REPORT * ML=Testing performed at Main Lab DEPARTMENT OF PATHOLOGY, [address] [place] [address] Christian Olivares M.D. Director [facility] # [id number] 47 SEE RESULT BELOW Name: OCTAVIO ARREGUIN : [address]: Marcial Vazquez MD Acct: [id number] Unit: [id number] AGE: 62 Location: ED Re08/29/17 SEX: M Status: REG ER SPEC: [id number] BETTY: 08/29/17 [facility] [address]: Marcial Vazquez MD REQ: [id number] RECD: 08/29/17 STATUS: LUIS MIGUEL LAGOS DR: Nav Buchanan MD _ SOURCE: NASAL SPDESC: ORDERED: Flu A B Request Procedure Result Reported Site Rapid Influenza A B Request Final 08/29/17- 1510 ML Specimen received for Influenza A/B Molecular testing * ML - MAIN LAB ([facility]) . END OF REPORT * ML=Testing performed at Main Lab DEPARTMENT OF PATHOLOGY, [address] [place] [address] Christian Olivares M.D. Director [facility] # [id number] 48 Powder Mill Operator: [id number] 49 SEE RESULT BELOW Name: OCTAVIO ARREGUIN : [address]: Marcial Vazquez MD Acct: [id number] Unit: [id number] AGE: 62 Location: ED Re08/29/17 SEX: M Status: DEP ER SPEC: [id number] BETTY: 08/29/17-1625 [facility] DR: Marcial Vazquez MD REQ: [id number] RECD: 08/29/17 STATUS: RES NISA DR: Nav Buchanan MD _ SOURCE: BLOOD,VENO SPDESC: ORDERED: Blood Cult Procedure Result Reported Site Aerobic Culture Bottle Preliminary 08/30/17- 1632 ML No Growth Day 1 Anaerobic Culture Bottle Preliminary 08/30/17- 1632 ML No Growth Day 1 * ML - MAIN LAB ([facility]) . END OF REPORT * ML=Testing performed at Main Lab DEPARTMENT OF PATHOLOGY, [address] [place] [address] Christian Olivares M.D. Director [facility] # [id number] 50 Because ethnic data is not always readily [...] 15-29 5 Kidney failure <15 (or dialysis) 51 Desirable: <150 Borderline High: 150-199 High: 200-499 Very High: >500 52 Desirable: <200 Borderline High: 200-239 High: >239 53 Low: <40 Desirable: 40-60 High: >60 54 Desirable: <100 Near Optimal: 100-129 Borderline High: 130-159 High: 160-189 Very High: >189 55 It is recognized that currently available assays [...] 95% confidence interval of 99.78 to 99.96%. 56 [id number] FASTING 57 Because ethnic data is not always readily [...] 15-29 5 Kidney failure <15 (or dialysis) 58 Because ethnic data is not always readily [...] 15-29 5 Kidney failure <15 (or dialysis) 59 Because ethnic data is not always readily [...] 15-29 5 Kidney failure <15 (or dialysis) 60 Critical Result LACT:2.9 Called to AURELIA at: 14:29:19 by:[id number] Read back by:AURELIA SAHU Severe Sepsis and Septic Shock Management Bundle Measure requires all lactic acids initially measuring >2.0 mmol/L be repeated. 61 Reference Range and Interpretation: TnI (ng/mL) Interpretation Less Than 0.03 ng/mL Not supportive of diagnosis of [place] 0.03 - 0.50 ng/mL Indeterminate: suggest serial studies if clinically indicated. Greater than 0.5 ng/mL Consistent with diagnosis of [place] 62 SEE RESULT BELOW Name: OCTAVIO ARREGUIN : [address]: Angel Kay MD Acct: [id number] Unit: [id number] AGE: 61 Location: [address] Re04/21/16 SEX: M Status: ADM IN SPEC: [id number] BETTY: 04/21/16 [facility] DR: Georges Pereira DO REQ: [id number] RECD: 04/21/16 STATUS: LUIS MIGUEL LAGOS DR: Nav Buchanan MD _ SOURCE: BLOOD,VENO SPDESC: ORDERED: Blood Cult COMMENTS: Verbal to by [id number] at 1505 on 04/22/16. Results read back accurately. Procedure Result Reported Site Aerobic Culture Bottle Final 04/23/16- 0837 ML Aerobic Bottle Gram Stain Gram Negative Bacilli Organism 1 KLEBSIELLA PNEUMONIAE Please refer to [id number] culture ANAEROBIC bottle for sensitivity testing. Anaerobic Culture Bottle Final 04/26/16- 1448 ML No Growth Day 5 * ML - MAIN LAB ([facility]) . END OF REPORT * ML=Testing performed at Main Lab DEPARTMENT OF PATHOLOGY, [address] [place] [address] Christian Olivares M.D. Director [facility] # [id number] 63 SEE RESULT BELOW Name: OCTAVIO ARREGUIN : [address]: Agustina Trujillo MD Acct: [id number] Unit: [id number] AGE: 61 Location: [place] [address] Re04/21/16 SEX: M Status: ADM IN SPEC: [id number] BETTY: 04/21/16-[address]: Georges Pereira DO REQ: [id number] RECD: 04/21/16 STATUS: LUIS MIGUEL LAGOS DR: Nav Buchanan MD _ SOURCE: URINE SPDESC: ORDERED: Urine Culture Procedure Result Reported Site Urine Culture Final 04/23/16- 835 ML Organism 1 KLEBSIELLA PNEUMONIAE [place] Count >100,000 (Many) CFU/ML 1. KLEBSIELLA PNEUMONIAE [...] antibiotic reporting. * ML - MAIN LAB ([facility]) . END OF REPORT * ML=Testing performed at Main Lab DEPARTMENT OF PATHOLOGY, [address] [place] [address] Christian Olivares M.D. Director [facility] # [id number] 66 SEE RESULT BELOW Name: OCTAVIO ARREGUIN : [address]: Vinny Perry MD Acct: [id number] Unit: [id number] AGE: 61 Location: [facility] Re03/05/16 SEX: M Status: REG REF SPEC: [id number] BETTY: 03/05/[address]: Vinny Perry MD REQ: [id number] RECD: 03/06/16 STATUS: LUIS MIGUEL LAGOS DR: Nav Buchanan MD _ SOURCE: STOOL SPDESC: ORDERED: C. diff PCR COMMENTS: attempted Verbal by [id number] at 1503 on 03/06/16. . Verbal to abdoulaye (nurse) by [id number] at 1510 on 03/06/16. Results read back accurately. Procedure Result Reported Site Stool Specimen Description Final 03/07/16- 1447 ML Stool Color Brown Stool Form Nonformed Stool Consistency Liquid C. difficile PCR Final 03/06/16- 1504 ML Organism 1 027 Presumptive NEGATIVE Organism 2 Toxigenic C.diff POSITIVE * ML - MAIN LAB ([facility]) . END OF REPORT * ML=Testing performed at Main Lab DEPARTMENT OF PATHOLOGY, [address] [place] [address] Christian Olivares M.D. Director [facility] # [id number] Procedures Description No Information Available Encounters Type Date Location Provider Dx Diagnosis Office Visit 06/25/[address] 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 G80.9 Cerebral palsy, unspecified J30.1 Allergic rhinitis due to pollen Z23 Encounter for immunization Office Visit 11/14/2017 11:30a Main Office Nav Buchanan N48.89 Other specified MD disorders of penis Office Visit 09/03/2017 11:15a Main Office Nav Buchanan J18.9 Pneumonia, unspecified organism D50.8 Other iron deficiency anemias Office Visit 08/26/2017 10:00a Main Office Jese Tello R05 Cough III, NEONATAL INTENSIVE CARE NURSE-C Office Visit 06/26/2017 1:00p Main Office Nav Buchanan, Z00.8 Encounter for other general examination N40.1 Benign prostatic hyperplasia with lower urinary tract symp R13.11 Dysphagia, oral phase Z23 Encounter for immunization Office Visit 05/27/2017 4:00p Main Office Dorota Guzman J20.9 Acute bronchitis, Elena Campuzano unspecified G80.8 Other cerebral palsy Office Visit 01/23/2017 11:15a Main Office Nav Buchanan B35.1 Tinea ungstephonum Office Visit 01/08/2017 9:30a Main Office Nav Buchanan, F41.9 Anxiety disorder, unspecified Office Visit 12/20/2016 10:45a Main Office Nav Buchanan, R05 Cough Office Visit 09/30/2016 4:45p Main Office Nav Buchanan, R05 Cough Office Visit 09/13/2016 10:15a Main Office Nav Buchanan G80.8 Other cerebral MD palsy F51.02 Adjustment insomnia Office Visit 06/24/2016 1:00p Main Office Nav Buchanan, Z00.8 Encounter for MD other general examination R63.6 Underweight Office Visit 05/13/2016 10:00a Main Office Nav Buchanan R65.20 Severe sepsis without septic shock N39.0 Urinary tract infection, site not specified B37.2 Candidiasis of skin and nail Office Visit 03/21/2016 10:00a Main Office Nav Buchanan, A04.7 Enterocolitis due to Clostridium difficile Office Visit 02/12/2016 9:00a Main Office Nav Buchanan G80.9 Cerebral palsy, unspecified F79 Unspecified intellectual disabilities 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 Per cardiology this is a life threatening and permanent issue. They were able to get him off the vent and out of the ICU, whichwas in some question for a while. This is still thought to be a life limiting problem, and there does not seem to be an effective permanent solution beyond our efforts to control his fluid status as well as possible. He is also on abx for a possible PNA and was treated with tamiflu for possible flu, although it's not clear if he ever had either of those infections.
--- NOTE | 2018-11-26 20:19 | ED ---
GI/ HPI - HPI Summary HPI Summary: This patient is a 63 year old male brought in by ambulance to [facility] accompanied by nurse with a chief complaint of urinary retention and bleed since 1200 today. Patient was brought from [facility]. At 0900, a nurse noted that the patients catheter wasnt draining. At 1200, irrigation was attempted, with no return. Instead, nurse noted drained blood. Patients catheter was removed shortly after and a new one was unable to be replaced. The pain is rated 2/10 in severity. Symptoms aggravated by nothing. Symptoms alleviated by nothing. HPI Limited due to patient condition: Level 5 Caveat - History of Current Complaint Chief Complaint: EDUrogenitalProblems Time Seen by Provider: 11/26/18 19:56 Stated Complaint: CATHETER ISSUES PER EMS Hx Obtained From: Patient, Family/Fish Boning Machine Feeder Hx From Patient Unobtainable Due To: Other - Level 5 Caveat Onset/Duration: Started Hours Ago, Still Present Timing: Constant Severity: Moderate Pain Intensity: 2 Associated Signs and Symptoms: Positive: Hematuria, Other: - Urinary Retention Aggravating Factor(s): Nothing Alleviating Factor(s): Nothing - Additional Pertinent History Primary Care Physician: [id number] - Allergy/Home Medications Allergies/Adverse Reactions: Allergies Allergy/AdvReac Type Severity Reaction Status Date / Time codeine Allergy Unknown Unknown Verified 11/05/17 10:13 Reaction Details erythromycin base Allergy Unknown Unknown Verified 11/05/17 10:13 [From Erythrocin] Reaction Details ondansetron Allergy Unknown Unknown Verified 11/05/17 10:13 [From Zofran (as Reaction hydrochloride)] Details prochlorperazine Allergy Unknown Unknown Verified 11/05/17 10:13 [From Compazine] Reaction Details promethazine [From Phenergan] Allergy Unknown Unknown Verified 11/05/17 10:13 Reaction Details Sulfa (Sulfonamide Allergy Unknown Unknown Verified 11/05/17 10:13 Antibiotics) Reaction Details PMH/Surg Hx/FS Hx/Imm Hx Previously Healthy: No - PMHx limited due to patient condition: Level 5 Caveat Endocrine/Hematology History: Reports: Hx Anticoagulant Therapy Denies: Hx Blood Disorders, Hx Blood Transfusions, Hx Diabetes, Hx Systemic Lupus Erythematosus, Hx Sickle Cell Disease, Hx Thyroid Disease, Hx Anemia, Hx Unexplained Bleeding, Other Endocrine/Hematological Disorders Comment Only: Hx Bone Marrow Disease - UNsure d/t Hx of femur tumor Cardiovascular History: Reports: Hx Hypertension, Other Cardiovascular Problems/ Disorders - Endocarditis, Hyperlipidemia Denies: Hx Aneurysm, Hx Angina, Hx Angioplasty, Hx Auto Implanted Cardiovert Defib, Hx Cardiac Arrest, Hx Cardiomegaly, Hx Congenital Heart Disease, Hx Congestive Heart Failure, Hx Coronary Artery Disease, Hx Deep Vein Thrombosis, Hx Embolism, Hx Hypercholesterolemia, Hx Hypotension, Hx Pacemaker/ICD, Hx Peripheral Vascular Disease, Hx Rheumatic Fever, Hx Syncope, Hx Valvular Heart Disease Respiratory History: Reports: Hx Pneumonia Denies: Hx Asthma, Hx Chronic Bronchitis, Hx Chronic Obstructive Pulmonary Disease (COPD), Hx Cystic Fibrosis, Hx Lung Cancer, Hx Pleural Effusion, Hx Pulmonary Edema, Hx Pulmonary Embolism, Hx Seasonal Allergies, Hx Sleep Apnea, Other Respiratory Problems/Disorders GI History: Denies: Hx Cirrhosis, Hx Crohn's Disease, Hx Diverticulosis, Hx Gall Bladder Disease, Hx Gastroesophageal Reflux Disease, Hx Gastrointestinal Bleed, Hx Hiatal Hernia, Hx Irritable Bowel, Hx Jaundice, Hx Obstructive Bowel, Hx Ileostomy, Hx Pyloric Stenosis, Hx Ulcer, Other GI Disorders History: Reports: Hx Benign Prostatic Hyperplasia, Other Problems/ Disorders - Neurogenic Bladder Chronic [place] Denies: Hx Acute Renal Failure, Hx Chronic Renal Failure, Hx Dialysis, Hx Kidney Infection, Hx Kidney Stones, Hx Renal Disease Musculoskeletal History: Reports: Other Musculoskeletal History - USES WALKER AND ASSIST, BRACE LEFT LEG R Femur tumor Denies: Hx Arthritis, Hx Rheumatoid Arthritis, Hx Back Problems, Hx Bursitis , Hx Congenital Bone Abnormalities, Hx Fibromyalgia, Hx Gout, Hx Orthopedic Injury, Hx Osteoporosis, Hx Scoliosis, Hx Tendonitis Sensory History: Denies: Hx Cataracts, Hx Contacts or Glasses, Hx Eye Injury, Hx Eye Prosthesis, Hx Glaucoma, Hx Legally Blind, Hx Macular Degeneration, Hx Vision Problem, Hx Deafness, Hx Hearing Aid, Hx Hearing Problem, Other Sensory Impairments Opthamlomology History: Denies: Hx Cataracts, Hx Contacts or Glasses, Hx Eye Injury, Hx Eye Prosthesis, Hx Glaucoma, Hx Legally Blind, Hx Macular Degeneration, Hx Vision Problem, Other Sensory Impairments Neurological History: Reports: Hx Developmental Delay, Hx Nerve Disease - CEREBRAL PALSY, Other Neuro Impairments/Disorders - NON VERBAL, CP Denies: Hx Dementia, Hx Headaches, Hx Migraine, Hx Seizures, Hx Spinal Cord Injury, Hx Transient Ischemic Attacks (TIA) Psychiatric History: Reports: Hx Anxiety - NO MEDS Denies: Hx Attention Deficit Hyperactivity Disorder, Hx Eating Disorder, Hx Depression, Hx Panic Disorder, Hx Post Traumatic Stress Disorder, Hx Inpatient Treatment, Hx Community Mental Health Tx, Hx Schizophrenia, Hx Bipolar Disorder , Hx Suicide Attempt, Hx of Violent Episodes Against Others, Hx Substance Abuse , Other Psychiatric Issues/Disorders - CP - Cancer History Cancer Type, 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 eye surgery 1974. toe surgery right foot. compound fracture left arm. NEPHRECTOMY. PT NOT A GOOD HISTORIAN, CLEARED BY DR ROMAN & DR GALINDO VIA CT & X-RAYS 10/12/15. & 12/14/15 Hx Anesthesia Reactions: No - Immunization History Date of Tetanus Vaccine: Up to date Date of Influenza Vaccine: Fall 2011 Infectious Disease History: Yes Infectious Disease History: Denies: Hx Clostridium Difficile, Hx Hepatitis, Hx Human Immunodeficiency Virus (HIV), Hx of Known/Suspected MRSA, Hx Shingles, Hx Tuberculosis, Hx Known/ Suspected VRE, Hx Known/Suspected VRSA, History Other Infectious Disease, Traveled Outside the [place] in Last 30 Days - Family History Known Family History: Positive: Unknown Family History: LEVEL 5 CAVEAT: FHx LIMITED DUE TO PT CONDITION - Social History Alcohol Use: None Hx Substance Use: No Substance Use Type: Reports: None Hx Tobacco Use: No Smoking Status (MU): Never Smoked Tobacco Review of Systems Negative: Fever Genitourinary: Other - urinary retension, bleed All Other Systems Reviewed And Are Negative: No - Comments Additional Review of Systems Comments: ROS Limited due to patient condition: Level 5 Caveat Physical Exam - Summary Physical Exam Summary: Appearance: Well-appearing, Well-nourished, lying in bed comfortably Skin: Warm, dry, no obvious rash Eyes: sclera anicteric, no conjunctival pallor ENT: mucous membranes moist, pharynx appears normal Neck: Supple, nontender Respiratory: Clear to auscultation, no signs of respiratory distress Cardiovascular: Normal S1, S2. No murmurs. Normal distal pulses in tibial and radial bilaterally. Abdomen: Soft, nontender, normal active bowel sounds present Musculoskeletal: Normal, Strength/ROM Intact Neurological: A&Ox3, awake and alert, mentation is normal, speech is fluent and appropriate Psychiatric: affect is normal, does not appear anxious or depressed Triage Information Reviewed: Yes Vital Signs On Initial Exam: Initial Vitals Temp Pulse Resp BP Pulse Ox 99.0 F 158 16 50/43 98 11/26/18 19:45 11/26/18 19:45 11/26/18 19:45 11/26/18 19:45 11/26/18 19:45 Vital Signs Reviewed: Yes Completion Of Physical Exam Limited Due To: Level 5 Diagnostics - Vital Signs Vital Signs Temp Pulse Resp BP Pulse Ox 11/26/18 19:59 156 51/43 97 11/26/18 19:52 157 98 11/26/18 19:45 99.0 F 158 16 50/43 98 - Laboratory Lab Statement: Any lab studies that have been ordered have been reviewed, and results considered in the medical decision making process. GIGU Course/Dx - Course Course Of Treatment: This patient is a 63 year old male brought in by ambulance to [facility] accompanied by nurse with a chief complaint of urinary retention and bleed since 1200 today. Patient was brought from [facility]. At 0900 , a nurse noted that the patients catheter wasnt draining. At 1200, irrigation was attempted, with no return. Instead, nurse noted drained blood. In the ED course the patient was given morphine, Zofran. Patient will be discharged with a dx of alamo catheter placement. Patient is advised to follow up with PCP as needed. The patient is agreeable with this plan. - Diagnoses Provider Diagnoses: [place] catheter problem, Clot retention of urine Discharge - Sign-Out/Discharge Documenting (check all that apply): Patient Departure Patient Received Moderate/Deep Sedation with Procedure: No - Discharge Plan Condition: Improved Disposition: HOME Patient Education Materials: [place] Catheter Placement and Care (ED) Referrals: Nav Buchanan MD [Primary Care Provider] - If Needed - Billing Disposition and Condition Condition: IMPROVED Disposition: Home - Attestation Statements Document Initiated by Acibe: Yes Documenting Scribe: Chelsea Linares Provider For Whom Tanvi is Documenting (Include Credential): Fabrice Ramirez MD Scriblance Attestation: Chelsea Koroma scribed for Fabrice Ramirez MD on 11/27/18 at 0442. Scribe Documentation Reviewed: Yes Provider Attestation: The documentation as recorded by the Chelsea nye accurately reflects the service I personally performed and the decisions made by me, Fabrice Ramirez MD Status of Scribe Document: Viewed
[2018-11-26] MEDS ORDERED: Morphine ORAL CONCENTRATE* 5 MG/0.25 ML ORAL.SYRIN SL PRN (20:40)
[2018-11-26] MEDS ORDERED: Ondansetron ODT TAB* 4 MG SL ONE (21:33)
[2018-11-27 00:53] VITALS: BP 42/30
== END 2018-11-27 00:30 | disposition home or self-care (01) ==
LOC: ED 19:37
DX: R33.9 Retention of urine, unspecified (principal); R31.9 Hematuria, unspecified; K92.2 Gastrointestinal hemorrhage, unspecified; I10 Essential (primary) hypertension; I38 Endocarditis, valve unspecified; E78.5 Hyperlipidemia, unspecified; N40.0 Benign prostatic hyperplasia without lower urinary tract symptoms; G80.9 Cerebral palsy, unspecified; Z88.1 Allergy status to other antibiotic agents; Z88.5 Allergy status to narcotic agent; Z88.2 Allergy status to sulfonamides; Z88.8 Allergy status to other drugs, medicaments and biological substances; Z79.01 Long term (current) use of anticoagulants
CPT/HCPCS: 51702; 99283; A9270-GY